=== PATIENT | male | born 1940 | race Caucasian/White ===

== ENCOUNTER → 2019-01-05 15:36 | Outpatient (CLI) | payer MEDICARE, SELFPAY ==
--- NOTE | 2019-01-05 | DI.MRI.S_ITS ---
PROCEDURE: MR STROKE Pre- and post-contrast brain MRI, non-contrast brain MR angiogram, pre- and postcontrast neck MR angiogram INDICATIONS: Amaurosis fugax TECHNIQUE: Brain: Noncontrast axial T1 spin echo, axial T2 fast spin echo, sagittal and axial FLAIR, coronal T2 fast spin echo, axial gradient echo, axial diffusion and ADC through the brain. After the administration of contrast, axial 3D VIBE of the cranial vasculature and brain. Brain MRA: Non-contrast 3-D time of flight MR angiogram, with multiple ugyufax-ahqpnjcbn-ztckbifyxr (MIP) reformats performed. Neck MRA: Axial and sagittal TruFISP through the neck. Coronal dynamic MR angiogram during administration of contrast in the arterial and venous phases, with 3-dimenstional qqsspaz-fcrpjmxor-demrqrdyty (MIP) reformats constructed from subtraction images. COMPARISON: None. FINDINGS: Image quality: Excellent. BRAIN: CSF spaces: Ventricles are normal in size and shape. Basal cisterns are patent. No extra-axial fluid collections. Brain: No intracranial bleeds or mass effects. Scattered small white matter signal changes, probably represent chronic microvascular ischemic disease, versus statistically less likely demyelination or other infectious, inflammatory, neurodegenerative etiology, technically nonspecific. Numerous presumed bilateral perivascular spaces incidentally noted. Moreno-white matter interface is normal. Diffusion weighted images show no acute ischemic insults. Brainstem appears normal. Normal intravascular flow voids are present. No abnormal intracranial enhancement. Skull and face: Calvarial marrow signal is normal. Orbits appear normal. Sinuses: Paranasal sinuses clear. There is age-indeterminate right mastoid air cell fluid. BRAIN MR ANGIOGRAM: Anterior circulation: Intracranial internal carotid arteries are normal in size and enhancement. 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 The flow within the anterior cerebral arteries is normal and symmetric. The flow within the middle cerebral arteries is normal and symmetric. The anterior communicating artery is seen. No stenoses, occlusions, or aneurysms. Posterior circulation: The visualized portions of the vertebral arteries demonstrate normal caliber, and join to form a normal appearing basilar artery. Right posterior communicating artery incidentally noted. There is a possible diminutive left posterior communicating artery. The flow within the posterior cerebral arteries is normal and symmetric. No stenoses, occlusions, or aneurysms. NECK MR ANGIOGRAM: Carotids: Great vessels demonstrate a conventional anatomy as they arise from the aortic arch. The origins of the common carotid arteries appear patent. The calibers and courses of both common carotid arteries are normal. The bifurcation regions appear normal bilaterally. The internal carotid arteries demonstrate normal course and caliber. Posterior circulation: The origins of the vertebral arteries appear patent. More superior portions of both vertebral arteries demonstrate normal course and caliber, and join to form a normal appearing basilar artery. Miscellaneous: Subclavian arteries appear patent. Pre-contrast images through the neck show no soft tissue abnormalities. IMPRESSION: BRAIN MRI: No evidence of acute ischemia. Age-indeterminate right mastoid air cell fluid. Diffuse small white matter signal changes, probably represent chronic microvascular ischemic disease, versus statistically less likely demyelination or other infectious, inflammatory, neurodegenerative etiology, technically nonspecific. BRAIN MR ANGIOGRAM: No intracranial stenosis or occlusion. NECK MR ANGIOGRAM: Negative examination. No ICA stenosis. Dictated by: Mateus Pratt M.D. on 01/05/2019 at 16:39 Approved by: Mateus Pratt M.D. on 01/05/2019 at 16:46
== END ==
PROVIDERS: PCP Physician Assistant; Visit Provider Physician Assistant
DX: G45.3 Amaurosis fugax (principal)
CPT/HCPCS: 70553; A9579

== ENCOUNTER → 2019-07-09 15:33 | Outpatient (CLI) | payer MEDICARE, SELFPAY ==
[2019-07-09 16:42] LABS: Erythrocyte Sedimentation Rate 15 MM/HR (0-15)
[2019-07-09 18:03] LABS: C-Reactive Protein Quant 0.6 mg/dL (<1.0)
== END ==
PROVIDERS: PCP Physician Assistant; Visit Provider Ophthalmology
DX: H53.10 Unspecified subjective visual disturbances (principal)
CPT/HCPCS: 36415; 85651; 86140

== ENCOUNTER → 2019-08-27 14:04 | Outpatient (CLI) | payer MEDICARE, SELFPAY ==
--- NOTE | 2019-08-27 | DI.RAD.S_ITS ---
PROCEDURE: XR CHEST 2V INDICATIONS: ACUTE BRONCHITIS TECHNIQUE: 2 views of the chest were acquired. COMPARISON: [facility], , CHEST 2 VIEW, 12/20/2013, 16:10. FINDINGS: Surgical changes and devices: None. Lungs and pleura: Lungs are clear. No pleural effusions or pneumothorax. Mediastinum: Mediastinal contours are normal. Heart size is normal. Bones and chest wall: No suspicious bony abnormalities. Soft tissues appear unremarkable. IMPRESSION: No acute disease. As Dictated by: Mateus Pratt M.D. on 08/27/2019 at 14:47 Approved by: Mateus Pratt M.D. on 08/27/2019 at 14:48
== END ==
PROVIDERS: Family Provider Physician Assistant; PCP Physician Assistant; Visit Provider Student in an Organized Health Care Education/Training Program
DX: J20.9 Acute bronchitis, unspecified (principal)
CPT/HCPCS: 71046

== ENCOUNTER → 2019-11-06 15:30 | Outpatient (CLI) | payer MEDICARE, SELFPAY ==
[2019-11-06 17:51] LABS: Add Manual Diff / Slide Review NO; Basophils Absolute Auto 0 /uL (0-100); Basophils Percent Auto 0.8 % (0-2); Eosinophils Absolute Auto 200 /uL (0-450); Hematocrit 39.1 % (41-53); Hemoglobin 13.2 g/dL (13.5-17.5); Lymphocytes Absolute Auto 1200 /uL (1100-4500); Lymphocytes Percent Auto 25.9 % (25-40); Mean Corpuscular HGB Conc 33.8 % (30-36); Mean Corpuscular Hemoglobin 31.7 PG (26-34); Mean Corpuscular Volume 93.8 fL (80-100); Monocytes Absolute Auto 300 /uL (0-900); Monocytes Percent Auto 7.1 % (3-14); Neutrophils Absolute Auto 2800 /uL (1500-7000); Neutrophils Percent Auto 62.2 % (50-75); Platelet Count 237 X10^3/uL (150-400); Red Blood Cell Count 4.17 X10^6/uL (4.5-5.9); Red Cell Distribution Width 14.4 % (11.6-14.8); White Blood Cell Count 4.6 X10^3/uL (4.5-11.0)
[2019-11-06 18:16] LABS: Alanine Aminotransferase 21 IU/L (<50); Albumin 4.5 g/dL (3.5-5.0); Albumin Globulin Ratio 1.5 (1.0-2.8); Alkaline Phosphatase 47 U/L (38-126); Aspartate Aminotransferase 28 IU/L (17-59); BUN Creatinine Ratio 14.5 (6-22); Bilirubin Total 0.4 mg/dL (0.2-1.3); Bilirubin Unconjugated 0.3 mg/dL (0.0-1.1); Blood Urea Nitrogen 16 mg/dL (9-20); Calcium 9.6 mg/dL (8.4-10.2); Carbon Dioxide 29 mmol/L (22-32); Chloride 101 mmol/L (98-107); Estimated Glomerular Filt Rate > 60.0 mL/min (>60); Glucose 98 mg/dL (80-110); HEMOLYSIS < 15 (0-50); Potassium 4.7 mmol/L (3.4-5.1); Sodium 139 mmol/L (137-145); Total Protein 7.5 g/dL (6.3-8.2)
== END ==
PROVIDERS: Family Provider Physician Assistant; PCP Physician Assistant; Visit Provider Dermatology
DX: Z79.899 Other long term (current) drug therapy (principal)
CPT/HCPCS: 36415; 80048; 80076; 85025

== ENCOUNTER → 2019-12-26 11:47 | Outpatient (CLI) | payer MEDICARE, SELFPAY ==
[2019-12-26 14:21] LABS: Add Manual Diff / Slide Review NO; Basophils Absolute Auto 0 /uL (0-100); Basophils Percent Auto 0.6 % (0-2); Eosinophils Absolute Auto 300 /uL (0-450); Eosinophils Percent Auto 5.4 % (2-4); Hematocrit 38.5 % (41-53); Lymphocytes Absolute Auto 1300 /uL (1100-4500); Lymphocytes Percent Auto 23.3 % (25-40); Mean Corpuscular HGB Conc 33.8 % (30-36); Mean Corpuscular Volume 94.6 fL (80-100); Monocytes Absolute Auto 400 /uL (0-900); Monocytes Percent Auto 7.7 % (3-14); Neutrophils Absolute Auto 3500 /uL (1500-7000); Platelet Count 241 X10^3/uL (150-400); Red Blood Cell Count 4.07 X10^6/uL (4.5-5.9); White Blood Cell Count 5.6 X10^3/uL (4.5-11.0)
[2019-12-26 15:07] LABS: Alanine Aminotransferase 51 IU/L (<50); Albumin 4.3 g/dL (3.5-5.0); Albumin Globulin Ratio 1.4 (1.0-2.8); Alkaline Phosphatase 59 U/L (38-126); Aspartate Aminotransferase 40 IU/L (17-59); BUN Creatinine Ratio 18.3 (6-22); Bilirubin Total 0.4 mg/dL (0.2-1.3); Bilirubin Unconjugated 0.3 mg/dL (0.0-1.1); Blood Urea Nitrogen 19 mg/dL (9-20); Calcium 9.4 mg/dL (8.4-10.2); Carbon Dioxide 25 mmol/L (22-32); Chloride 102 mmol/L (98-107); Estimated Glomerular Filt Rate > 60.0 mL/min (>60); Glucose 131 mg/dL (80-110); HEMOLYSIS < 15 (0-50); Potassium 4.5 mmol/L (3.4-5.1); Sodium 138 mmol/L (137-145); Total Protein 7.3 g/dL (6.3-8.2)
== END ==
PROVIDERS: Family Provider Physician Assistant; PCP Physician Assistant; Referring Provider Dermatology; Visit Provider Dermatology
DX: Z79.899 Other long term (current) drug therapy (principal)
CPT/HCPCS: 36415; 80048; 80076; 85025

== ENCOUNTER → 2020-03-20 10:13 | Outpatient (CLI) | payer MEDICARE, SELFPAY ==
[2020-03-20 11:24] LABS: Appearance Urine UA CLOUDY; Bilirubin Urine UA NEGATIVE (NEGATIVE); Color Urine UA YELLOW; Glucose Urine UA NEGATIVE (Negative); Ketones Urine UA NEGATIVE (NEGATIVE); Leukocyte Esterase Urine UA 3+ (NEGATIVE); Nitrite Urine UA POSITIVE (Negative); Occult Blood Urine UA 2+ (Negative); Protein Urine UA NEGATIVE (Negative); Urobilinogen Urine UA 0.2 E.U./dL (0.2); pH Urine UA 6.5 (4.5-8.0)
[2020-03-20 11:31] LABS: Add Manual Diff / Slide Review NO; Basophils Absolute Auto 0 /uL (0-100); Basophils Percent Auto 0.4 % (0-2); Eosinophils Absolute Auto 300 /uL (0-450); Eosinophils Percent Auto 4.2 % (2-4); Hematocrit 37.8 % (41-53); Lymphocytes Absolute Auto 1300 /uL (1100-4500); Lymphocytes Percent Auto 15.9 % (25-40); Mean Corpuscular HGB Conc 34.4 % (30-36); Mean Corpuscular Hemoglobin 33.2 PG (26-34); Mean Corpuscular Volume 96.5 fL (80-100); Monocytes Absolute Auto 800 /uL (0-900); Neutrophils Absolute Auto 5700 /uL (1500-7000); Neutrophils Percent Auto 69.5 % (50-75); Platelet Count 244 X10^3/uL (150-400); Red Blood Cell Count 3.92 X10^6/uL (4.5-5.9); Red Cell Distribution Width 14.6 % (11.6-14.8); White Blood Cell Count 8.2 X10^3/uL (4.5-11.0)
[2020-03-20 11:32] LABS: Bacteria Urine Many (>30); RBC Urine 5-10/HPF (0-5/HPF); WBC Urine 10-30/HPF (0-5/HPF)
[2020-03-20 11:38] LABS: Alanine Aminotransferase 22 IU/L (<50); Albumin 4.3 g/dL (3.5-5.0); Albumin Globulin Ratio 1.3 (1.0-2.8); Alkaline Phosphatase 50 U/L (38-126); Aspartate Aminotransferase 26 IU/L (17-59); BUN Creatinine Ratio 16.7 (6-22); Bilirubin Total 0.6 mg/dL (0.2-1.3); Bilirubin Unconjugated 0.5 mg/dL (0.0-1.1); Blood Urea Nitrogen 21 mg/dL (9-20); Calcium 9.4 mg/dL (8.4-10.2); Carbon Dioxide 27 mmol/L (22-32); Chloride 103 mmol/L (98-107); Estimated Glomerular Filt Rate 55.5 mL/min (>60); Globulin 3.3 g/dL (1.7-4.1); Glucose 124 mg/dL (80-110); HEMOLYSIS < 15 (0-50); Potassium 4.3 mmol/L (3.4-5.1); Sodium 138 mmol/L (137-145); Total Protein 7.6 g/dL (6.3-8.2)
== END ==
PROVIDERS: Family Provider Physician Assistant; PCP Physician Assistant; Referring Provider Physician Assistant; Visit Provider Dermatology
DX: Z79.899 Other long term (current) drug therapy (principal); R39.15 Urgency of urination
CPT/HCPCS: 36415; 80048; 80076; 81001; 85025; 87077; 87086; 87186

== ENCOUNTER → 2020-05-29 10:22 | Outpatient (CLI) | payer MEDICARE, SELFPAY ==
[2020-05-29 12:02] LABS: Estimated Glomerular Filt Rate > 60.0 mL/min (>60)
== END ==
PROVIDERS: Family Provider Physician Assistant; PCP Physician Assistant; Referring Provider Dermatology; Visit Provider Dermatology
DX: Z79.899 Other long term (current) drug therapy (principal)
CPT/HCPCS: 36415; 82565

== ENCOUNTER → 2020-10-20 15:17 | Outpatient (CLI) | payer OTHER, SELFPAY ==
[2020-10-20 15:55] LABS: Add Manual Diff / Slide Review NO; Basophils Absolute Auto 0 /uL (0-100); Basophils Percent Auto 0.9 % (0-2); Eosinophils Absolute Auto 200 /uL (0-450); Eosinophils Percent Auto 3.7 % (2-4); Hematocrit 39.2 % (41-53); Hemoglobin 13.2 g/dL (13.5-17.5); Lymphocytes Absolute Auto 1100 /uL (1100-4500); Lymphocytes Percent Auto 20.9 % (25-40); Mean Corpuscular HGB Conc 33.6 % (30-36); Mean Corpuscular Hemoglobin 32.8 PG (26-34); Mean Corpuscular Volume 97.7 fL (80-100); Monocytes Absolute Auto 400 /uL (0-900); Monocytes Percent Auto 8.3 % (3-14); Neutrophils Absolute Auto 3400 /uL (1500-7000); Neutrophils Percent Auto 66.2 % (50-75); Platelet Count 233 X10^3/uL (150-400); Red Blood Cell Count 4.02 X10^6/uL (4.5-5.9); Red Cell Distribution Width 14.7 % (11.6-14.8); White Blood Cell Count 5.1 X10^3/uL (4.5-11.0)
[2020-10-20 16:07] LABS: Alanine Aminotransferase 30 IU/L (<50); Albumin 4.3 g/dL (3.5-5.0); Albumin Globulin Ratio 1.3 (1.0-2.8); Alkaline Phosphatase 50 U/L (38-126); Aspartate Aminotransferase 31 IU/L (17-59); BUN Creatinine Ratio 18.3 (6-22); Bilirubin Total 0.3 mg/dL (0.2-1.3); Blood Urea Nitrogen 17 mg/dL (9-20); Calcium 9.3 mg/dL (8.4-10.2); Carbon Dioxide 30 mmol/L (22-32); Chloride 103 mmol/L (98-107); Cholesterol 154 mg/dL (140-199); Estimated Glomerular Filt Rate > 60.0 mL/min (>60); Globulin 3.3 g/dL (1.7-4.1); Glucose 108 mg/dL (80-110); HDL Cholesterol 49 mg/dL (40-60); HEMOLYSIS < 15 (0-50); Iron 53 ug/dL (49-181); LDL Cholesterol Calculated 79 mg/dL (<100); Potassium 4.4 mmol/L (3.4-5.1); Sodium 137 mmol/L (137-145); Total Protein 7.6 g/dL (6.3-8.2); Triglycerides 128 mg/dL (35-150)
[2020-10-20 16:19] LABS: Percent Iron Saturation 17 % (20-50); Total Iron Binding Capacity 318 ug/dL (261-462); Transferrin 232 mg/dL (206-381)
[2020-10-20 16:44] LABS: TSH w/ Reflex to FT4 1.72 uIU/mL (0.47-4.68)
[2020-10-20 16:47] LABS: Ferritin 85 ng/mL (18-464)
[2020-10-23 15:06] LABS: NT-proBNP (BNP-Adult 18+) 278 pg/mL (<450)
== END ==
PROVIDERS: Family Provider Physician Assistant; PCP Physician Assistant; Referring Provider Physician Assistant; Visit Provider Physician Assistant
DX: E78.5 Hyperlipidemia, unspecified (principal); D64.9 Anemia, unspecified; I10 Essential (primary) hypertension; R60.9 Edema, unspecified; R53.83 Other fatigue
CPT/HCPCS: 36415; 80053; 80061; 82728; 83540; 83550; 83880; 84443; 85025

== ENCOUNTER 2021-02-09 15:36 | Emergency (ER) | payer OTHER, SELFPAY ==
[2021-02-09 15:45] VITALS: BP 103/55; BP 158/88; PULSE 76; PULSE 79; RESP 16; RESP 22; TEMP 36.7; O2SAT 97; BMI 29.9
--- NOTE | 2021-02-09 15:48 | DI.RAD.S_ITS ---
PROCEDURE: XR CHEST 2V INDICATIONS: shortness of breath TECHNIQUE: 2 views of the chest were acquired. COMPARISON: [facility], , XR CHEST 2V, 08/27/2019, 14:07. FINDINGS: Surgical changes and devices: Surgical clips project over the upper mediastinum which are stable. Lungs and pleura: Lungs are clear. No pleural effusions or pneumothorax. Mediastinum: Mediastinal contours are normal. Heart size is normal. Bones and chest wall: No suspicious bony abnormalities. Soft tissues appear unremarkable. IMPRESSION: No acute cardiopulmonary disease process. Dictated by: Jennifer Kaminski MD, PhD on 02/09/2021 at 16:10 Approved by: Jennifer Kaminski MD, PhD on 02/09/2021 at 16:11
[2021-02-09 16:01] VITALS: BP 133/78; PULSE 66; RESP 17; O2SAT 95
[2021-02-09 16:02] LABS: Add Manual Diff / Slide Review NO; Basophils Absolute Auto 0 /uL (0-100); Basophils Percent Auto 0.7 % (0-2); Eosinophils Absolute Auto 300 /uL (0-450); Eosinophils Percent Auto 5.4 % (2-4); Hematocrit 37.7 % (41-53); Hemoglobin 12.6 g/dL (13.5-17.5); Lymphocytes Absolute Auto 1400 /uL (1100-4500); Lymphocytes Percent Auto 25.4 % (25-40); Mean Corpuscular HGB Conc 33.5 % (30-36); Mean Corpuscular Hemoglobin 33.1 PG (26-34); Mean Corpuscular Volume 98.6 fL (80-100); Monocytes Absolute Auto 400 /uL (0-900); Monocytes Percent Auto 8.2 % (3-14); Neutrophils Absolute Auto 3200 /uL (1500-7000); Neutrophils Percent Auto 60.3 % (50-75); Platelet Count 269 X10^3/uL (150-400); Red Blood Cell Count 3.82 X10^6/uL (4.5-5.9); Red Cell Distribution Width 14.5 % (11.6-14.8); White Blood Cell Count 5.3 X10^3/uL (4.5-11.0)
--- NOTE | 2021-02-09 16:11 | ED_ITS ---
HPI - General Adult General Chief complaint: Shortness of Breath/Dyspnea Stated complaint: SOB, Numbness in left hand, foggy feeling Time Seen by Provider: 02/09/21 15:41 Source: patient Mode of arrival: Ambulatory Limitations: no limitations History of Present Illness HPI narrative: Patient is a 80-year-old male here for evaluation of several different symptoms. He states that since the end of last week he has had episodes where he is becoming dizzy. He describes it has a room spinning sensation. It happens most often when he is going from a sitting position to a laying position. He denies any other associated symptoms with this. Does fatigue with time. He is also complaining of tingling along his index finger and his thumb on the right hand. He also had 1 episode where he thought he was somewhat short of breath but this improved as well. Related Data Home Medications Medication Instructions Recorded Confirmed LOPERAMIDE - 2 mg PO QDAY #0 02/07/11 (#IMODIUM) aspirin 81 mg PO QDAY #0 02/07/11 [FISH OIL ] 1 PO QDAY #0 06/27/13 [ANTACID] PO PRN PRN #0 07/02/13 Allergies Allergy/AdvReac Type Severity Reaction Status Date / Time erythromycin base Allergy Mild SKIN LESION Unverified 01/25/18 12:17 oxycodone Allergy Mild NIGHT Unverified 01/25/18 12:17 SWEATS Sulfa (Sulfonamide Allergy Mild SKIN LESION Unverified 01/25/18 12:17 Antibiotics) OYSTER EXTRACT Allergy Mild GI UPSET Uncoded 01/25/18 12:17 Review of Systems Constitutional Constitutional: Denies chills, Denies fatigue, Denies fever(s), Denies frequent falls and Denies headache(s) Eyes Eyes: Denies change in vision ENT Ears, Nose, Mouth, and Throat: Reports vertigo, Reports dizziness, Denies headache(s), Denies disequilibrium and Denies sore throat Cardiovascular Cardiovascular: Denies chest pain, Denies syncope and Reports dyspnea Respiratory Respiratory: Reports dyspnea Gastrointestinal Gastrointestinal: Denies abdominal pain, Denies nausea and Denies vomiting Genitourinary Genitourinary: Denies dysuria Genitourinary: Denies dysuria Musculoskeletal Musculoskeletal: Denies numbness and Reports tingling Integumentary/Breasts Skin/Breast: Denies lesions and Denies rash Neurologic Neurologic: Denies confusion, Reports vertigo, Reports dizziness, Denies syncope, Denies frequent falls, Denies headache(s), Denies numbness, Reports tingling and Denies disequilibrium Psychiatric Psychiatric: Denies confusion Endocrine Endocrine: Denies fatigue Hematologic/Lymphatic On Anticoagulants: No Allergic/Immunologic Allergic/Immunologic: Denies urticaria Patient History Medical History Umbilical hernia with obstruction Social History lives independently: Yes Exam Initial Vital Signs Initial Vital Signs: Vital Signs Temperature 98.0 F 02/09/21 15:45 Pulse Rate 79 02/09/21 15:45 Respiratory Rate 16 02/09/21 15:45 Blood Pressure 103/55 L 02/09/21 15:45 Pulse Oximetry 97 02/09/21 15:45 Const General: cooperative and comfortable Limitations: mental status not altered HENMT Head: normal to inspection and normocephalic Eyes General: appearance normal, both eyes and all related structures Neck Neck: normal visual inspection Resp Effort & Inspection: normal respiratory effort Auscultation: clear to auscultation bilaterally Cardio Rate: regular rate Rhythm: regular rhythm GI Inspection: non-distended Palpation: soft, No firm and No tender Back/Spine/Pelvis Back: No CVA tenderness Skin Lesions: no lesions Rashes: no rashes Neuro General: patient alert, patient awake and patient oriented x3 Cognition: normal cognition Speech: speech normal Gait: normal gait Motor: muscle tone normal throughout Extrem General: capillary refill normal Psych Appearance: grossly normal and well kempt Course Orders Ordered: ED Orders 02/09/21 15:48 XR chest 2V Stat EKG-12 Lead Stat Measure peak expiratory flow ONCE RT Consult Eval and Treat Now 02/09/21 15:50 Complete Blood Count AUTO DIFF Stat Comprehensive Metabolic Panel Stat Lactate (Lactic Acid) Stat NT-proBNP (BNP-Adult 18+) Stat Troponin & CK Cardiac Panel Stat Vital Signs Vital signs: Vital Signs - 8 hr 02/09/21 15:45 02/09/21 16:01 02/09/21 16:30 Temperature 98.0 F Pulse Rate 76 66 65 Respiratory Rate 22 17 18 Blood Pressure 158/88 H 133/78 Pulse Oximetry 97 95 94 02/09/21 16:31 Temperature Pulse Rate 65 Respiratory Rate 13 Blood Pressure 116/82 Pulse Oximetry 96 Medical Decision Making Lab Data Lab results reviewed: Yes I reviewed the patient's lab results. Result diagrams: 02/09/21 15:50 02/09/21 15:50 Labs: Lab Results 02/09/21 02/09/21 02/09/21 Range/Units 15:50 15:50 15:50 WBC 5.3 (4.5-11.0) X10^3/uL RBC 3.82 L (4.5-5.9) X10^6/uL Hgb 12.6 L (13.5-17.5) g/dL Hct 37.7 L (41-53) % MCV 98.6 (80-100) fL MCH 33.1 (26-34) PG MCHC 33.5 (30-36) % RDW 14.5 (11.6-14.8) % Plt Count 269 (150-400) X10^3/uL Neut % (Auto) 60.3 (50-75) % Lymph % (Auto) 25.4 (25-40) % [place] % (Auto) 8.2 (3-14) % Eos % (Auto) 5.4 H (2-4) % Baso % (Auto) 0.7 (0-2) % Neut # (Auto) 3200 (1810-6009) /uL Lymph # (Auto) 1400 (1998-4500) /uL [place] # (Auto) 400 (0-900) /uL Eos # (Auto) 300 (0-450) /uL Baso # (Auto) 0 (0-100) /uL Sodium 139 (137-145) mmol/L Potassium 4.2 (3.4-5.1) mmol/L Chloride 105 (98-107) mmol/L Carbon Dioxide 25 (22-32) mmol/L BUN 23 H (9-20) mg/dL Creatinine 0.94 (0.66-1.25) mg/dL Estimated GFR > 60.0 (>60) mL/min BUN/Creatinine Ratio 24.5 H (6-22) Glucose 111 H (80-110) mg/dL Lactate 1.2 (0.7-2.1) mmol/L Calcium 9.4 (8.4-10.2) mg/dL Total Bilirubin 0.1 L (0.2-1.3) mg/dL AST 29 (17-59) IU/L ALT 22 (<50) IU/L Alkaline Phosphatase 53 (38-126) U/L Total Creatine Kinase (55-170) U/L CK-MB (CK-2) (<2.37) ng/mL CK-MB (CK-2) Rel Index (1.5-5.0) % Troponin I (0.01-0.034) ng/mL NT-Pro-B Natriuret Pep (<450) pg/mL Total Protein 7.3 (6.3-8.2) g/dL Albumin 4.2 (3.5-5.0) g/dL Globulin 3.1 (1.7-4.1) g/dL Albumin/Globulin Ratio 1.4 (1.0-2.8) / Range/Units 15:50 WBC (4.5-11.0) X10^3/uL RBC (4.5-5.9) X10^6/uL Hgb (13.5-17.5) g/dL Hct (41-53) % MCV (80-100) fL MCH (26-34) PG MCHC (30-36) % RDW (11.6-14.8) % Plt Count (150-400) X10^3/uL Neut % (Auto) (50-75) % Lymph % (Auto) (25-40) % [place] % (Auto) (3-14) % Eos % (Auto) (2-4) % Baso % (Auto) (0-2) % Neut # (Auto) (5429-7655) /uL Lymph # (Auto) (0939-0126) /uL [place] # (Auto) (0-900) /uL Eos # (Auto) (0-450) /uL Baso # (Auto) (0-100) /uL Sodium (137-145) mmol/L Potassium (3.4-5.1) mmol/L Chloride (98-107) mmol/L Carbon Dioxide (22-32) mmol/L BUN (9-20) mg/dL Creatinine (0.66-1.25) mg/dL Estimated GFR (>60) mL/min BUN/Creatinine Ratio (6-22) Glucose (80-110) mg/dL Lactate (0.7-2.1) mmol/L Calcium (8.4-10.2) mg/dL Total Bilirubin (0.2-1.3) mg/dL AST (17-59) IU/L ALT (<50) IU/L Alkaline Phosphatase (38-126) U/L Total Creatine Kinase 154 (55-170) U/L CK-MB (CK-2) 2.91 H (<2.37) ng/mL CK-MB (CK-2) Rel Index 1.9 (1.5-5.0) % Troponin I < 0.012 (0.01-0.034) ng/mL NT-Pro-B Natriuret Pep 223 (<450) pg/mL Total Protein (6.3-8.2) g/dL Albumin (3.5-5.0) g/dL Globulin (1.7-4.1) g/dL Albumin/Globulin Ratio (1.0-2.8) Imaging Data Chest x-ray: Radiologist's Impression: [address] [id number] ReportSigned Patient: Hilario Hines R#: [id number]: 2Acct:[id number]/Sex: 80 / MDate of Service: 02/09/21Loc: EDAccession Number: [id number] Procedure: XR chest 2V Ordering Provider: Colin Higginbotham D.O. PROCEDURE: XR CHEST 2V INDICATIONS: shortness of breath TECHNIQUE: 2 views of the chest were acquired. COMPARISON: [facility], , XR CHEST 2V, 08/27/2019, 14:07. FINDINGS: Surgical changes and devices: Surgical clips project over the upper mediastinum which are stable. Lungs and pleura: Lungs are clear. No pleural effusions or pneumothorax. Mediastinum: Mediastinal contours are normal. Heart size is normal. Bones and chest wall: No suspicious bony abnormalities. Soft tissues appear unremarkable. IMPRESSION: No acute cardiopulmonary disease process. Dictated by: Jennifer Kaminski MD, PhD on 02/09/2021 at 16:10 Approved by: Jennifer Kaminski MD, PhD on 02/09/2021 at 16:11 ECG Data Attestation: I personally reviewed and interpreted this ECG as follows: Prior ECG tracings: not available for review Interpretation: Sinus rhythm Ventricular rate is 72 Left axis deviation None bundle-branch block +no ST T wave changes MDM Narrative Medical decision making narrative: Low suspicion for ACS. I do think that his symptoms today are less likely TIA/CVA and more likely peripheral vertigo. I feel that we can hold on further workup for now low suspicion for central DIGESTER lesion. Low suspicion for ACS. Patient was given return precautions and follow-up instructions. He expressed understanding and agreement. Discharge Plan Departure Patient Disposition: Home Clinical Impression: Vertigo, Tingling Instructions: Vertigo Activity Restrictions/Additional Instructions: Continue all of your medications as directed. Recommend you contact your prima provider for follow-up. Return to the emergency department for any new or worsening symptoms Prescriptions: No Action aspirin 81 MG tablet,chewable 81 mg PO QDAY Qty: 0 RF: 0 LOPERAMIDE - (#IMODIUM) 2 mg PO QDAY Qty: 0 RF: 0 [FISH OIL ] 1 PO QDAY Qty: 0 RF: 0 [ANTACID] PO PRN PRNQty: 0 RF: 0 Referrals: Monika Márquez PA-C [Primary Care Provider] -
[2021-02-09 16:26] LABS: Alanine Aminotransferase 22 IU/L (<50); Albumin 4.2 g/dL (3.5-5.0); Albumin Globulin Ratio 1.4 (1.0-2.8); Alkaline Phosphatase 53 U/L (38-126); Aspartate Aminotransferase 29 IU/L (17-59); BUN Creatinine Ratio 24.5 (6-22); Bilirubin Total 0.1 mg/dL (0.2-1.3); Blood Urea Nitrogen 23 mg/dL (9-20); Calcium 9.4 mg/dL (8.4-10.2); Carbon Dioxide 25 mmol/L (22-32); Chloride 105 mmol/L (98-107); Creatine Kinase 154 U/L (55-170); Estimated Glomerular Filt Rate > 60.0 mL/min (>60); Globulin 3.1 g/dL (1.7-4.1); Glucose 111 mg/dL (80-110); HEMOLYSIS 20 (0-50); Lactate (Lactic Acid) 1.2 mmol/L (0.7-2.1); Potassium 4.2 mmol/L (3.4-5.1); Sodium 139 mmol/L (137-145); Total Protein 7.3 g/dL (6.3-8.2)
[2021-02-09 16:30] VITALS: PULSE 65; RESP 18; O2SAT 94
[2021-02-09 16:31] VITALS: BP 116/82; PULSE 65; RESP 13; O2SAT 96
[2021-02-09 16:37] LABS: NT-proBNP (BNP-Adult 18+) 223 pg/mL (<450); Troponin I < 0.012 ng/mL (0.01-0.034)
[2021-02-09 16:41] LABS: CKMB % Relative Index 1.9 % (1.5-5.0); Creatine Kinase MB 2.91 ng/mL (<2.37)
[2021-02-09 17:00] VITALS: BP 136/63; PULSE 64; RESP 17; O2SAT 95
== END 2021-02-09 17:32 | disposition home or self-care (01) ==
PROVIDERS: Emergency Provider Emergency Medicine; Family Provider Physician Assistant; PCP Physician Assistant
DX: R42 Dizziness and giddiness (principal); R20.2 Paresthesia of skin; R06.02 Shortness of breath
CPT/HCPCS: 36415; 71046; 80053; 82550; 82553; 83605; 83880; 84484; 85025; 93005; 99283; 99284

== ENCOUNTER → 2021-04-01 08:35 | Outpatient (CLI) | payer OTHER, SELFPAY ==
[2021-04-01 10:03] LABS: Alanine Aminotransferase 27 IU/L (<50); Albumin 4.1 g/dL (3.5-5.0); Albumin Globulin Ratio 1.4 (1.0-2.8); Alkaline Phosphatase 48 U/L (38-126); Aspartate Aminotransferase 30 IU/L (17-59); Bilirubin Total 0.4 mg/dL (0.2-1.3); Bilirubin Unconjugated 0.3 mg/dL (0.0-1.1); Estimated Glomerular Filt Rate > 60.0 mL/min (>60); Globulin 2.9 g/dL (1.7-4.1); HEMOLYSIS < 15 (0-50)
[2021-04-01 10:45] LABS: Add Manual Diff / Slide Review NO; Basophils Absolute Auto 0 /uL (0-100); Basophils Percent Auto 0.7 % (0-2); Eosinophils Absolute Auto 400 /uL (0-450); Eosinophils Percent Auto 7.1 % (2-4); Hematocrit 40.3 % (41-53); Hemoglobin 13.4 g/dL (13.5-17.5); Lymphocytes Absolute Auto 1300 /uL (1100-4500); Lymphocytes Percent Auto 26.4 % (25-40); Mean Corpuscular HGB Conc 33.2 % (30-36); Mean Corpuscular Hemoglobin 32.4 PG (26-34); Mean Corpuscular Volume 97.7 fL (80-100); Monocytes Absolute Auto 400 /uL (0-900); Monocytes Percent Auto 8.2 % (3-14); Neutrophils Absolute Auto 2900 /uL (1500-7000); Neutrophils Percent Auto 57.6 % (50-75); Platelet Count 249 X10^3/uL (150-400); Red Blood Cell Count 4.13 X10^6/uL (4.5-5.9); Red Cell Distribution Width 14.3 % (11.6-14.8)
== END ==
PROVIDERS: Family Provider Physician Assistant; PCP Physician Assistant; Referring Provider Dermatology; Visit Provider Dermatology
DX: Z79.899 Other long term (current) drug therapy (principal)
CPT/HCPCS: 36415; 80076; 82565; 85025

== ENCOUNTER → 2021-05-07 10:00 | Outpatient (CLI) | payer OTHER, SELFPAY ==
--- NOTE | 2021-05-07 | DI.CT.S_ITS ---
PROCEDURE: CT HEAD/BRAIN WO CON INDICATIONS: Dizziness and giddiness TECHNIQUE: Noncontrast 4.5 mm thick angled axial sections acquired from the foramen magnum to the vertex, with coronal and sagittal reformats. For radiation dose reduction, the following was used: automated exposure control, adjustment of mA and/or kV according to patient size. COMPARISON: None. FINDINGS: Image quality: Excellent. CSF spaces: Basal cisterns are patent. No extra-axial fluid collections. The ventricles are symmetric in size and shape. Brain: No intracranial bleeds or masses. There is cerebral volume loss for age, with resultant ventricular and sulcal prominence. There are periventricular and deep white matter chronic small vessel ischemic changes. There is intracranial internal carotid artery atherosclerosis. Skull and face: Calvarium and visualized facial bones appear intact, without suspicious lesions. Sinuses: Visualized sinuses and mastoids are clear. IMPRESSION: No imaging explanation is found for the patient's presenting symptoms. Note is made of age-appropriate brain parenchymal volume loss and chronic small vessel ischemic changes. Dictated by: Woody Cabrera M.D. on 05/07/2021 at 9:14 Approved by: Woody Cabrera M.D. on 05/07/2021 at 9:16
== END ==
PROVIDERS: Family Provider Physician Assistant; PCP Physician Assistant; Referring Provider Physician Assistant; Visit Provider Physician Assistant
DX: R42 Dizziness and giddiness (principal)
CPT/HCPCS: 70450

== ENCOUNTER 2021-07-06 11:36 | Observation (INO) | payer OTHER, SELFPAY ==
[2021-07-06] VITALS (19 sets, daily range): BP systolic 115–148; BP diastolic 55–88; PULSE 54–69; RESP 14–25; TEMP 35.7–36.7; O2SAT 93–99; BMI 30.5; BMI 31.1
--- NOTE | 2021-07-06 11:44 | DI.RAD.S_ITS ---
PROCEDURE: XR CHEST 1V INDICATIONS: chest pain TECHNIQUE: One view of the chest was acquired. COMPARISON: [facility], CR, XR CHEST 2V, 02/09/2021, 15:49. FINDINGS: Surgical changes and devices: Surgical clips project over upper mediastinum. Lungs and pleura: Lungs are clear. No pleural effusions or pneumothorax. Mediastinum: Mediastinal contours appear normal. Heart size is normal. Bones and chest wall: No suspicious bony lesions. Overlying soft tissues appear unremarkable. IMPRESSION: No evidence acute pulmonary process. Dictated by: Corey Torres M.D. on 07/06/2021 at 11:57 Approved by: Corey Torres M.D. on 07/06/2021 at 11:58
[2021-07-06] MEDS: ASPIRIN 81 MG CHEW TAB 324 MG PO (11:58)
[2021-07-06 12:04] LABS: Add Manual Diff / Slide Review NO; Basophils Absolute Auto 0 /uL (0-100); Basophils Percent Auto 0.8 % (0-2); Eosinophils Absolute Auto 400 /uL (0-450); Eosinophils Percent Auto 7.3 % (2-4); Hematocrit 39.6 % (41-53); Hemoglobin 12.9 g/dL (13.5-17.5); Lymphocytes Absolute Auto 1100 /uL (1100-4500); Lymphocytes Percent Auto 22.3 % (25-40); Mean Corpuscular HGB Conc 32.7 % (30-36); Mean Corpuscular Hemoglobin 32.3 PG (26-34); Mean Corpuscular Volume 98.8 fL (80-100); Monocytes Absolute Auto 500 /uL (0-900); Monocytes Percent Auto 9.5 % (3-14); Neutrophils Absolute Auto 3000 /uL (1500-7000); Neutrophils Percent Auto 60.1 % (50-75); Platelet Count 244 X10^3/uL (150-400); Red Cell Distribution Width 14.8 % (11.6-14.8)
--- NOTE | 2021-07-06 12:23 | ED_ITS ---
HPI - Chest Pain <Zelalem Montelongo PA-C - Last Filed: 07/06/21 15:00> General Chief Complaint: Chest Pain Stated Complaint: pcp ref. SOB, chest pain, lightheaded, Time Seen by Provider: 07/06/21 11:55 Source: patient Mode of arrival: Ambulatory Limitations: no limitations History of Present Illness HPI narrative: 80-year-old male with a history of flaccid bladder, hypertension, hyperlipidemia presents to the ED with 2 days of shortness of breath. Patient reports that he has been experiencing shortness of breath, lightheadedness, chest tightness when he tries to take a deep breath for the last week, however symptoms worsened yesterday when he was on a walk. 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 Patient denies any other cardiac history. Patient denies history of blood clots. Patient denies fever, chills, cough, nausea, vomiting, abdominal pain, dysuria, syncope. Patient has known bladder issues for which he catheterizes himself twice daily. Patient does not recall when he last had an EKG and if it had a left bundle-branch block. Related Data Home Medications Medication Instructions Recorded Confirmed LOPERAMIDE - 2 mg PO PRN PRN #0 02/07/11 07/06/21 (#IMODIUM) aspirin 81 mg chewable tablet 81 mg PO QDAY #0 02/07/11 07/06/21 [FISH OIL ] 14,000 mg PO QDAY #0 06/27/13 07/06/21 [ANTACID] PO PRN PRN #0 07/02/13 atorvastatin 10 mg tablet 10 mg PO DAILY 02/10/21 07/06/21 enalapril maleate 10 mg tablet 10 mg PO BEDTIME 02/10/21 07/06/21 iron 150 mg-vit C 60 mg-folate 1 1 tab PO DAILY 02/10/21 02/10/21 [id number] tablet methotrexate sodium 2.5 mg tablet 2.5 mg PO QWEEK 02/10/21 07/06/21 finasteride 5 mg tablet 5 mg PO BEDTIME 07/06/21 07/06/21 Previous Rx's Medication Instructions Recorded alfuzosin 10 mg tablet,extended 10 mg PO DAILY #90 tab 02/10/21 release 24 hr Allergies Allergy/AdvReac Type Severity Reaction Status Date / Time erythromycin base Allergy Mild SKIN LESION Verified 07/06/21 11:57 oxycodone Allergy Mild NIGHT Verified 07/06/21 11:57 SWEATS Sulfa (Sulfonamide Allergy Mild SKIN LESION Verified 07/06/21 11:57 Antibiotics) OYSTER EXTRACT Allergy Mild GI UPSET Uncoded 07/06/21 11:57 Review of Systems <Zelalem Montelongo PA-C - Last Filed: 07/06/21 15:00> Constitutional Constitutional: Denies chills, Denies fatigue, Denies fever(s), Denies frequent falls, Denies lethargy and Denies weakness Eyes Eyes: Denies change in vision, Denies eye discharge, Denies irritation and Denies loss of vision ENT Ears, Nose, Mouth, and Throat: Denies change in voice, Denies dizziness, Denies neck pain, Denies sore throat and Denies throat swelling Cardiovascular Cardiovascular: Denies chest pain, Denies irregular heart rhythm, Reports lightheadedness, Denies palpitations, Reports dyspnea, Reports dyspnea on exertion and Denies orthopnea Comments: Chest tightness Respiratory Respiratory: Denies cough, Reports dyspnea, Reports dyspnea on exertion and Denies wheezing Gastrointestinal Gastrointestinal: Denies abdominal pain, Denies change in bowel habits, Denies diarrhea, Denies nausea and Denies vomiting Musculoskeletal Musculoskeletal: Denies neck pain and Denies numbness Integumentary/Breasts Skin/Breast: Denies pruritus, Denies erythema, Denies rash and Denies wounds Neurologic Neurologic: Denies behavioral changes, Denies confusion, Denies dizziness, Denies frequent falls, Denies loss of vision, Denies numbness and Denies weakness Psychiatric Psychiatric: Denies anxiety, Denies behavioral changes, Denies confusion, Denies depression, Denies homicidal ideation and Denies suicidal ideation Endocrine Endocrine: Denies fatigue, Denies flushing and Denies palpitations Hematologic/Lymphatic Hematologic/Lymphatic: Denies easy bruising Allergic/Immunologic Allergic/Immunologic: Denies urticaria, Denies throat swelling and Denies wheezing Patient History <Zelalem Montelongo PA-C - Last Filed: 07/06/21 15:00> Medical History Flaccid bladder History of UTI Rotator cuff arthropathy Umbilical hernia with obstruction UTI (urinary tract infection) Surgical History History of knee replacement Hx of vasectomy Family History Father Cancer Social History marital status: number of children: 2 household members: spouse lives independently: Yes Smoking Status: Never smoker alcohol intake: former caffeine: Yes Smoking Status: Never smoker alcohol intake frequency: 0-2 drinks per day Substance Use Type: does not use Exam <Zelalem Montelongo PA-C - Last Filed: 07/06/21 15:00> Initial Vital Signs Initial Vital Signs: Vital Signs Temperature 97.6 F 07/06/21 11:39 Pulse Rate 69 07/06/21 11:39 Respiratory Rate 14 07/06/21 11:39 Blood Pressure 148/88 H 07/06/21 11:39 Pulse Oximetry 99 07/06/21 11:39 Const General: cooperative HENMT Head: normocephalic and atraumatic Ears: external ears normal and TM's normal bilaterally Nose: external nose normal and No nasal discharge Face and sinus: sinuses nontender, face symmetric, no sinus tenderness and No dry mucous membranes Mouth: oral mucosae normal and moist mucous membranes Teeth and gingiva: dentition normal Throat: tonsils normal and uvula midline Eyes General: appearance normal, both eyes and all related structures Eyelids: eyelids normal Conjunctivae: conjunctivae normal Sclera: sclerae normal Pupils: PERRL EOM: EOM intact bilaterally Neck Neck: normal visual inspection, trachea midline, No lymphadenopathy, No midline deformity and No JVD Lymphatic: No lymphedema Chest Chest: normal inspection of the chest Resp Effort & Inspection: normal respiratory effort, able to speak in complete se ntences, no respiratory distress and no use of accessory muscles Auscultation: clear to auscultation bilaterally, no rales, no rhonchi and no wheezes Cardio Rate: regular rate Rhythm: regular rhythm Heart Sounds: no click, no gallops, no murmurs and no rubs Pulses: normal peripheral pulses GI Inspection: non-distended Palpation: soft, no hepatosplenomegaly, No guarding, No pulsatile mass and No tender Auscultation: normal bowel sounds Back/Spine/Pelvis Back: No CVA tenderness Cervical Spine: cervical ROM normal and No pain with cervical ROM Thoracic/Lumbar Spine: thoracic and lumbar spine normal to inspection Skin General: no rashes or lesions noted, No jaundice and No petechiae Neuro General: patient alert, patient oriented x3, gait normal and no focal motor deficits Speech: speech normal Extrem General: full ROM, no clubbing, cyanosis or edema, no pedal edema, no calf tenderness and calf tenderness Other: No lower extremity edema, no leg swelling, erythema Psych Appearance: well kempt Mental Status: mental status grossly normal Attitude: cooperative Thought Content: normal and suicidality Judgment: judgment good <Colin Higginbotham DO - Last Filed: 07/06/21 17:00> Initial Vital Signs Initial Vital Signs: Vital Signs Temperature 97.6 F 07/06/21 11:39 Pulse Rate 69 07/06/21 11:39 Respiratory Rate 14 07/06/21 11:39 Blood Pressure 148/88 H 07/06/21 11:39 Pulse Oximetry 99 07/06/21 11:39 Scores <Zelalem Montelongo PA-C - Last Filed: 07/06/21 15:00> HEART Score Heart Score history: Moderately Suspicious Heart Score EKG: Non-Specific repolarization disturbance Heart Score Age: > or = 65 years old Heart Score risk factors: 1-2 risk factors Heart Score troponin: < or = to normal limit Heart Score Total: 5 <Colin Higginbotham DO - Last Filed: 07/06/21 17:00> HEART Score Heart Score Total: 5 Course <Zelalem Montelongo PA-C - Last Filed: 07/06/21 15:00> Course Course Narrative: D-dimer elevated to 522 NG/dL, which is above the 390 age adjusted D-dimer cut off. Will order CT PE. CT PE neg for PE or otheracute pulmonary process. HEART score 5 Will admit for obs, cardiac stress test. Orders Ordered: ED Orders 07/06/21 11:44 XR chest 1V Stat EKG-12 Lead Stat 07/06/21 11:55 BNP [NT-proBNP (BNP-Adult 18+)] Stat Complete Blood Count AUTO DIFF Stat Comprehensive Metabolic Panel Stat D Dimer Stat Lipase Stat Magnesium Stat Troponin & CK Cardiac Panel Stat 07/06/21 12:24 COVID19 -Nasal swab/Pre-Proc Stat 07/06/21 13:10 CT angio chest PE protocol Stat 07/06/21 15:00 COVID19 - ADMIT (ENVIRONMENTAL CONTROL ADMINISTRATOR swab/PCR) Stat Acetaminophen (Acetaminophen 325 Mg Tablet) 650 mg PO Q6HR PRN PRN Reason: Fever/Mild Pain (1-3) Enoxaparin Sodium (Enoxaparin 40 Mg/0.4 Ml Syringe) 40 mg SUBCUT DAILY [place] Nitroglycerin (Nitroglycerin 0.4 Mg Sl Tab) 0.4 mg SL [id number] PRN PRN Reason: Chest Pain Ondansetron HCl (Ondansetron 4 Mg Odt) 4 mg PO Q8HR PRN PRN Reason: Nausea And Vomiting Discontinued Medications Aspirin (Aspirin 81 Mg Chew Tab) 324 mg PO NOW ONE Stop: 07/06/21 11:45 Last Admin: 07/06/21 11:58 Dose: 324 mg Documented by: RAUL Vital Signs Vital signs: Vital Signs - 8 hr 07/06/21 11:39 07/06/21 11:50 07/06/21 11:52 Temperature 97.6 F Pulse Rate 69 67 65 Respiratory Rate 14 24 20 Blood Pressure 148/88 H 141/62 H Pulse Oximetry 99 97 97 07/06/21 12:00 07/06/21 12:01 07/06/21 12:30 Temperature Pulse Rate 65 63 59 L Respiratory Rate 25 H 21 17 Blood Pressure 118/76 122/55 L Pulse Oximetry 96 96 95 07/06/21 13:00 07/06/21 13:30 07/06/21 13:44 Temperature Pulse Rate 57 L 57 L 55 L Respiratory Rate 16 19 24 Blood Pressure 115/57 L 120/64 Pulse Oximetry 95 96 96 07/06/21 14:00 07/06/21 14:30 Temperature Pulse Rate 55 L 55 L Respiratory Rate 18 19 Blood Pressure 124/67 128/63 Pulse Oximetry 95 95 <Colin Higginbotham DO - Last Filed: 07/06/21 17:00> Orders Ordered: ED Orders 07/06/21 11:44 XR chest 1V Stat EKG-12 Lead Stat 07/06/21 11:55 BNP [NT-proBNP (BNP-Adult 18+)] Stat Complete Blood Count AUTO DIFF Stat Comprehensive Metabolic Panel Stat D Dimer Stat Lipase Stat Magnesium Stat Troponin & CK Cardiac Panel Stat 07/06/21 12:24 COVID19 -Nasal swab/Pre-Proc Stat 07/06/21 13:10 CT angio chest PE protocol Stat 07/06/21 15:00 COVID19 - ADMIT (ENVIRONMENTAL CONTROL ADMINISTRATOR swab/PCR) Stat Acetaminophen (Acetaminophen 325 Mg Tablet) 650 mg PO Q6HR PRN PRN Reason: Fever/Mild Pain (1-3) Enoxaparin Sodium (Enoxaparin 40 Mg/0.4 Ml Syringe) 40 mg SUBCUT DAILY [place] Nitroglycerin (Nitroglycerin 0.4 Mg Sl Tab) 0.4 mg SL [id number] PRN PRN Reason: Chest Pain Ondansetron HCl (Ondansetron 4 Mg Odt) 4 mg PO Q8HR PRN PRN Reason: Nausea And Vomiting Discontinued Medications Aspirin (Aspirin 81 Mg Chew Tab) 324 mg PO NOW ONE Stop: 07/06/21 11:45 Last Admin: 07/06/21 11:58 Dose: 324 mg Documented by: RAUL Vital Signs Vital signs: Vital Signs - 8 hr 07/06/21 11:39 07/06/21 11:50 07/06/21 11:52 Temperature 97.6 F Pulse Rate 69 67 65 Respiratory Rate 14 24 20 Blood Pressure 148/88 H 141/62 H Pulse Oximetry 99 97 97 07/06/21 12:00 07/06/21 12:01 07/06/21 12:30 Temperature Pulse Rate 65 63 59 L Respiratory Rate 25 H 21 17 Blood Pressure 118/76 122/55 L Pulse Oximetry 96 96 95 07/06/21 13:00 07/06/21 13:30 07/06/21 13:44 Temperature Pulse Rate 57 L 57 L 55 L Respiratory Rate 16 19 24 Blood Pressure 115/57 L 120/64 Pulse Oximetry 95 96 96 07/06/21 14:00 07/06/21 14:30 Temperature Pulse Rate 55 L 55 L Respiratory Rate 18 19 Blood Pressure 124/67 128/63 Pulse Oximetry 95 95 MDM - Chest Pain <Zelalem Montelongo PA-C - Last Filed: 07/06/21 15:00> Lab Data Lab results narrative: D-dimer elevated to 522 NG/dL, which is above the 390 age adjusted D-dimer cut off. Other labs within normal limits. Result diagrams: 07/06/21 11:55 07/06/21 11:55 Labs: Lab Results 07/06/21 07/06/21 07/06/21 Range/Units 11:55 11:55 11:55 WBC 5.0 (4.5-11.0) X10^3/uL RBC 4.00 L (4.5-5.9) X10^6/uL Hgb 12.9 L (13.5-17.5) g/dL Hct 39.6 L (41-53) % MCV 98.8 (80-100) fL MCH 32.3 (26-34) PG MCHC 32.7 (30-36) % RDW 14.8 (11.6-14.8) % Plt Count 244 (150-400) X10^3/uL Neut % (Auto) 60.1 (50-75) % Lymph % (Auto) 22.3 L (25-40) % [place] % (Auto) 9.5 (3-14) % Eos % (Auto) 7.3 H (2-4) % Baso % (Auto) 0.8 (0-2) % Neut # (Auto) 3000 (1541-6747) /uL Lymph # (Auto) 1100 (4561-4953) /uL [place] # (Auto) 500 (0-900) /uL Eos # (Auto) 400 (0-450) /uL Baso # (Auto) 0 (0-100) /uL D-Dimer 522 H (<230) ng/mL Sodium 139 (137-145) mmol/L Potassium 4.3 (3.4-5.1) mmol/L Chloride 106 (98-107) mmol/L Carbon Dioxide 28 (22-32) mmol/L BUN 15 (9-20) mg/dL Creatinine 0.87 (0.66-1.25) mg/dL Estimated GFR > 60.0 (>60) mL/min BUN/Creatinine Ratio 17.2 (6-22) Glucose 129 H (80-110) mg/dL Calcium 9.3 (8.4-10.2) mg/dL Magnesium 2.0 (1.6-2.3) mg/dL Total Bilirubin 0.3 (0.2-1.3) mg/dL AST 32 (17-59) IU/L ALT 31 (<50) IU/L Alkaline Phosphatase 47 (38-126) U/L Total Creatine Kinase 151 (55-170) U/L CK-MB (CK-2) 2.05 (<2.37) ng/mL CK-MB (CK-2) Rel Index 1.4 L (1.5-5.0) % Troponin I < 0.012 (0.01-0.034) ng/mL NT-Pro-B Natriuret Pep 245 (<450) pg/mL Total Protein 7.3 (6.3-8.2) g/dL Albumin 4.3 (3.5-5.0) g/dL Globulin 3.0 (1.7-4.1) g/dL Albumin/Globulin Ratio 1.4 (1.0-2.8) Lipase 76 (23-300) U/L SARS-CoV-2 (PCR) (Negative) 07/06/21 Range/Units 12:24 WBC (4.5-11.0) X10^3/uL RBC (4.5-5.9) X10^6/uL Hgb (13.5-17.5) g/dL Hct (41-53) % MCV (80-100) fL MCH (26-34) PG MCHC (30-36) % RDW (11.6-14.8) % Plt Count (150-400) X10^3/uL Neut % (Auto) (50-75) % Lymph % (Auto) (25-40) % [place] % (Auto) (3-14) % Eos % (Auto) (2-4) % Baso % (Auto) (0-2) % Neut # (Auto) (1049-3053) /uL Lymph # (Auto) (2550-9793) /uL [place] # (Auto) (0-900) /uL Eos # (Auto) (0-450) /uL Baso # (Auto) (0-100) /uL D-Dimer (<230) ng/mL Sodium (137-145) mmol/L Potassium (3.4-5.1) mmol/L Chloride (98-107) mmol/L Carbon Dioxide (22-32) mmol/L BUN (9-20) mg/dL Creatinine (0.66-1.25) mg/dL Estimated GFR (>60) mL/min BUN/Creatinine Ratio (6-22) Glucose (80-110) mg/dL Calcium (8.4-10.2) mg/dL Magnesium (1.6-2.3) mg/dL Total Bilirubin (0.2-1.3) mg/dL AST (17-59) IU/L ALT (<50) IU/L Alkaline Phosphatase (38-126) U/L Total Creatine Kinase (55-170) U/L CK-MB (CK-2) (<2.37) ng/mL CK-MB (CK-2) Rel Index (1.5-5.0) % Troponin I (0.01-0.034) ng/mL NT-Pro-B Natriuret Pep (<450) pg/mL Total Protein (6.3-8.2) g/dL Albumin (3.5-5.0) g/dL Globulin (1.7-4.1) g/dL Albumin/Globulin Ratio (1.0-2.8) Lipase (23-300) U/L SARS-CoV-2 (PCR) Negative (Negative) Imaging Data Chest x-ray: Radiologist's Impression: PROCEDURE:? XR CHEST 1V ? INDICATIONS:? chest pain ? TECHNIQUE:? One view of the chest was acquired.? ? COMPARISON:? [facility], , XR CHEST 2V, 02/09/2021, 15:49. ? FINDINGS:? ? Surgical changes and devices:? Surgical clips project over upper mediastinum. ? Lungs and pleura:? Lungs are clear.? No pleural effusions or pneumothorax.? ? Mediastinum:? Mediastinal contours appear normal.? Heart size is normal.? ? Bones and chest wall:? No suspicious bony lesions.? Overlying soft tissues appear unremarkable.? ? IMPRESSION:? No evidence acute pulmonary process. ? ? ? Dictated by: Corey Torres M.D. on 07/06/2021 at 11:57 ? ? Approved by: Corey Torres M.D. on 07/06/2021 at 11:58 ? CT scan - chest: Radiologist's Impression: PROCEDURE:? CT ANGIO CHEST PE PROTOCOL ? INDICATIONS:? SOB, lightheadedness, chest tightness ? TECHNIQUE:? After the administration of intravenous contrast, 2 mm thick sections acquired from the pulmonary apices to the posterior costophrenic angles.? 3-dimensional maximum intensity projection (MIP) coronal and sagittal reformats were then acquired through the thorax.? For radiation dose reduction, the following was used:? automated exposure control, adjustment of mA and/or kV according to patient size.? ? COMPARISON:? [facility], CR, XR CHEST 1V, 07/06/2021, 11:47. ? FINDINGS:? Image quality:? Excellent.? ? Pulmonary arteries:? Pulmonary arteries are normal in size, and demonstrate no intraluminal filling defects to suggest central pulmonary embolism.? ? Lungs and pleura:? Lungs are clear.? No pleural effusions or pneumothorax.? Central and peripheral airways are patent.? ? Mediastinum:? Heart size is normal, without pericardial effusion.? Moderate coronary artery calcifications are present.? Aortic valve calcifications are also noted.? No mediastinal or hilar adenopathy.? Surgical clips are seen in the upper mediastinum.? Thoracic aorta is normal in caliber and enhancement.? Esophagus is normal in caliber, without hiatal hernia.? ? Bones and chest wall:? No suspicious bony lesions.? Ribs and thoracic spine appear intact throughout.? Thyroid appears normal.? No axillary or supraclavicular adenopathy.? ? Abdomen:? A few calcified gallstones are seen in the gallbladder.? Visualized upper abdominal solid organs otherwise appear normal in the early arterial phase of enhancement.? ? IMPRESSION:? 1. No acute pulmonary embolus.? No acute abnormality is identified in the chest. 2. Cholelithiasis.? ? ? Dictated by: Maicol Faith M.D. on 07/06/2021 at 13:28 ? ? Approved by: Maicol Faith M.D. on 07/06/2021 at 13:35 ? ECG Data Interpretation: NSR, LBBB, L axis deviation. No prior EKGs for comparison MDM Narrative Medical decision making narrative: 80-year-old male with a history of flaccid bladder, hypertension, hyperlipidemia presents to the ED with 2 days of shortness of breath. Concern for ACS versus PE versus COVID-19 versus pneumonia versus anemia versus electrolyte derangements versus new onset heart failure. Will order EKG, chest x-ray, labs, troponin, BNP, D-dimer, COVID-19 test. Will reassess. <Colin Higginbotham DO - Last Filed: 07/06/21 17:00> Lab Data Labs: Lab Results 07/06/21 07/06/21 07/06/21 Range/Units 11:55 11:55 11:55 WBC 5.0 (4.5-11.0) X10^3/uL RBC 4.00 L (4.5-5.9) X10^6/uL Hgb 12.9 L (13.5-17.5) g/dL Hct 39.6 L (41-53) % MCV 98.8 (80-100) fL MCH 32.3 (26-34) PG MCHC 32.7 (30-36) % RDW 14.8 (11.6-14.8) % Plt Count 244 (150-400) X10^3/uL Neut % (Auto) 60.1 (50-75) % Lymph % (Auto) 22.3 L (25-40) % [place] % (Auto) 9.5 (3-14) % Eos % (Auto) 7.3 H (2-4) % Baso % (Auto) 0.8 (0-2) % Neut # (Auto) 3000 (9584-2419) /uL Lymph # (Auto) 1100 (5126-4773) /uL [place] # (Auto) 500 (0-900) /uL Eos # (Auto) 400 (0-450) /uL Baso # (Auto) 0 (0-100) /uL D-Dimer 522 H (<230) ng/mL Sodium 139 (137-145) mmol/L Potassium 4.3 (3.4-5.1) mmol/L Chloride 106 (98-107) mmol/L Carbon Dioxide 28 (22-32) mmol/L BUN 15 (9-20) mg/dL Creatinine 0.87 (0.66-1.25) mg/dL Estimated GFR > 60.0 (>60) mL/min BUN/Creatinine Ratio 17.2 (6-22) Glucose 129 H (80-110) mg/dL Calcium 9.3 (8.4-10.2) mg/dL Magnesium 2.0 (1.6-2.3) mg/dL Total Bilirubin 0.3 (0.2-1.3) mg/dL AST 32 (17-59) IU/L ALT 31 (<50) IU/L Alkaline Phosphatase 47 (38-126) U/L Total Creatine Kinase 151 (55-170) U/L CK-MB (CK-2) 2.05 (<2.37) ng/mL CK-MB (CK-2) Rel Index 1.4 L (1.5-5.0) % Troponin I < 0.012 (0.01-0.034) ng/mL NT-Pro-B Natriuret Pep 245 (<450) pg/mL Total Protein 7.3 (6.3-8.2) g/dL Albumin 4.3 (3.5-5.0) g/dL Globulin 3.0 (1.7-4.1) g/dL Albumin/Globulin Ratio 1.4 (1.0-2.8) Lipase 76 (23-300) U/L SARS-CoV-2 (PCR) (Negative) 07/06/21 Range/Units 12:24 WBC (4.5-11.0) X10^3/uL RBC (4.5-5.9) X10^6/uL Hgb (13.5-17.5) g/dL Hct (41-53) % MCV (80-100) fL MCH (26-34) PG MCHC (30-36) % RDW (11.6-14.8) % Plt Count (150-400) X10^3/uL Neut % (Auto) (50-75) % Lymph % (Auto) (25-40) % [place] % (Auto) (3-14) % Eos % (Auto) (2-4) % Baso % (Auto) (0-2) % Neut # (Auto) (1914-3821) /uL Lymph # (Auto) (8252-7400) /uL [place] # (Auto) (0-900) /uL Eos # (Auto) (0-450) /uL Baso # (Auto) (0-100) /uL D-Dimer (<230) ng/mL Sodium (137-145) mmol/L Potassium (3.4-5.1) mmol/L Chloride (98-107) mmol/L Carbon Dioxide (22-32) mmol/L BUN (9-20) mg/dL Creatinine (0.66-1.25) mg/dL Estimated GFR (>60) mL/min BUN/Creatinine Ratio (6-22) Glucose (80-110) mg/dL Calcium (8.4-10.2) mg/dL Magnesium (1.6-2.3) mg/dL Total Bilirubin (0.2-1.3) mg/dL AST (17-59) IU/L ALT (<50) IU/L Alkaline Phosphatase (38-126) U/L Total Creatine Kinase (55-170) U/L CK-MB (CK-2) (<2.37) ng/mL CK-MB (CK-2) Rel Index (1.5-5.0) % Troponin I (0.01-0.034) ng/mL NT-Pro-B Natriuret Pep (<450) pg/mL Total Protein (6.3-8.2) g/dL Albumin (3.5-5.0) g/dL Globulin (1.7-4.1) g/dL Albumin/Globulin Ratio (1.0-2.8) Lipase (23-300) U/L SARS-CoV-2 (PCR) Negative (Negative) Discharge Plan Departure Patient Disposition: Admitted as Observation Clinical Impression: Shortness of breath Admit Date/Time: 07/06/21 14:58 Admit Provider: Tano Clark <Colin Higginbotham, - Last Filed: 07/06/21 17:00> Cosign ED Attending Cosignature Attestation: Dr Higginbotham Co-Sign Statement: I was available for consultation during this patient's emergency department visit. This chart is signed by myself for administrative purposes only. I did not have direct contact with this patient during this visit. They were seen independen tly by the [facility].
[2021-07-06 12:36] LABS: Alanine Aminotransferase 31 IU/L (<50); Albumin 4.3 g/dL (3.5-5.0); Albumin Globulin Ratio 1.4 (1.0-2.8); Alkaline Phosphatase 47 U/L (38-126); Aspartate Aminotransferase 32 IU/L (17-59); BUN Creatinine Ratio 17.2 (6-22); Bilirubin Total 0.3 mg/dL (0.2-1.3); Blood Urea Nitrogen 15 mg/dL (9-20); Calcium 9.3 mg/dL (8.4-10.2); Carbon Dioxide 28 mmol/L (22-32); Chloride 106 mmol/L (98-107); Creatine Kinase 151 U/L (55-170); Estimated Glomerular Filt Rate > 60.0 mL/min (>60); Glucose 129 mg/dL (80-110); HEMOLYSIS < 15 (0-50); Lipase 76 U/L (23-300); Potassium 4.3 mmol/L (3.4-5.1); Sodium 139 mmol/L (137-145); Total Protein 7.3 g/dL (6.3-8.2)
[2021-07-06 12:48] LABS: COVID19 -Nasal RAPID Negative (Negative)
[2021-07-06 12:48] LABS: NT-proBNP (BNP-Adult 18+) 245 pg/mL (<450); Troponin I < 0.012 ng/mL (0.01-0.034)
[2021-07-06 12:51] LABS: CKMB % Relative Index 1.4 % (1.5-5.0); Creatine Kinase MB 2.05 ng/mL (<2.37)
[2021-07-06 13:01] LABS: D Dimer 522 ng/mL (<230)
--- NOTE | 2021-07-06 13:10 | DI.CT.S_ITS ---
PROCEDURE: CT ANGIO CHEST PE PROTOCOL INDICATIONS: SOB, lightheadedness, chest tightness TECHNIQUE: After the administration of intravenous contrast, 2 mm thick sections acquired from the pulmonary apices to the posterior costophrenic angles. 3-dimensional maximum intensity projection (MIP) coronal and sagittal reformats were then acquired through the thorax. For radiation dose reduction, the following was used: automated exposure control, adjustment of mA and/or kV according to patient size. COMPARISON: [facility], CR, XR CHEST 1V, 07/06/2021, 11:47. FINDINGS: Image quality: Excellent. Pulmonary arteries: Pulmonary arteries are normal in size, and demonstrate no intraluminal filling defects to suggest central pulmonary embolism. Lungs and pleura: Lungs are clear. No pleural effusions or pneumothorax. Central and peripheral airways are patent. Mediastinum: Heart size is normal, without pericardial effusion. Moderate coronary artery calcifications are present. Aortic valve calcifications are also noted. No mediastinal or hilar adenopathy. Surgical clips are seen in the upper mediastinum. Thoracic aorta is normal in caliber and enhancement. Esophagus is normal in caliber, without hiatal hernia. Bones and chest wall: No suspicious bony lesions. Ribs and thoracic spine appear intact throughout. Thyroid appears normal. No axillary or supraclavicular adenopathy. Abdomen: A few calcified gallstones are seen in the gallbladder. Visualized upper abdominal solid organs otherwise appear normal in the early arterial phase of enhancement. IMPRESSION: 1. No acute pulmonary embolus. No acute abnormality is identified in the chest. 2. Cholelithiasis. Dictated by: Maicol Faith M.D. on 07/06/2021 at 13:28 Approved by: Maicol Faith M.D. on 07/06/2021 at 13:35
--- NOTE | 2021-07-06 16:24 | DI.ECHO.S_ITS ---
[facility] +---------+ : : [address] [address] : : : : [id number] : : : : Phone: [phone] Echocardiogram Report + + :Name: ASHER GARCIA Study Date: 07/07/2021 Height: 72 in : :[facility] ReadingLocation: Weight: 229 lb : : Gender: Male BSA: 2.3 m2 : :: 1940 Age: 81 yrs BP: 129/67 mmHg: :Reason For Study: CHEST PAIN : :Ordering Physician: ALYSSA, : :NIK LOPEZ Performed By: May Harvey : :Referring: NIK SHAH : + + Interpretation Summary The ejection fraction is estimated to be 35-40%. Left ventricular global longitudinal strain average is -15%. Diastolic function could not be accurately assessed. The right ventricle is normal in size and function. There is moderate aortic stenosis. Unable to estimate PASP. Procedure: A two-dimensional transthoracic echocardiogram with color flow and Doppler was performed. The study quality was technically adequate. There is no prior echocardiogram noted for this patient. The heart rate ranged between 70-80 bpm during the study. Left Ventricle: The left ventricle is normal in size and wall thickness. The ejection fraction is estimated to be 35-40%. Left ventricular global longitudinal strain average is -15%. Septal motion is consistent with conduction abnormality. Diastolic function could not be accurately assessed due to unobtainable data. Right Ventricle: The right ventricle is normal in size and function. Atria: Both atria are normal in size. There is no Doppler evidence for an interatrial shunt. Mitral Valve: The mitral valve leaflets appear mildly thickened, but open well. There is mild mitral annular calcification. There is trace mitral regurgitation. Aortic Valve: The aortic valve is trileaflet. The aortic valve is moderately calcified. There is mildly reduced leaflet mobility. There is moderate aortic stenosis. The peak aortic velocity is 2.97 m/sec. The aortic valve mean gradient is 21 mmHg. The calculated aortic valve area is 1.5 cm2. No aortic regurgitation is present. Tricuspid Valve: The tricuspid valve is normal in structure and function. There is trace tricuspid regurgitation. Pulmonary artery pressures cannot be estimated because of the lack of a measurable TR jet velocity but the IVC suggests a CVP of around 3 mmHg. Pulmonic Valve: The pulmonic valve leaflets are thin and pliable; valve motion is normal. There is mild pulmonic regurgitation. Great Vessels: The aortic root is normal size. The ascending aorta is mildly enlarged. The IVC is of normal diameter and collapses greater than 50% with a sniff. This suggests a low right atrial pressure of 3 mm Hg. Pericardium/ Pleura There is no pericardial effusion. There is no pleural effusion. MMode/2D Measurements & Calculations LVIDd: 5.4 cm LVOT diam: 2.6 cm LVIDs: 4.8 cm Ao root diam: 3.8 cm FS: 12.0 % asc Aorta Diam: 3.8 cm IVSd: 0.91 cm Ao Arch Diam (Prox Trans): 3.8 cm LVPWd: 0.84 cm LV mercado. diameter/BSA (cm/m^2): 2.4 LV sys. diameter/BSA (cm/m^2): 2.1 LA A2 area: 24.9 cm2 RA long axis: 5.0 cm LA A4 area: 15.9 cm2 RA area: 16.0 cm2 LA length (vol): 4.6 cm RA vol: 43.2 ml LA vol: 73.5 ml RA : 19.1 ml/m2 LA vol index: 32.6 ml/m2 IVC diam: 1.2 cm RVD1 (basal): 3.7 cm TAPSE: 1.9 cm Doppler Measurements & Calculations Ao V2 max: 297.4 cm/sec LVOT Max Todd: 84.6 cm/sec Ao V2 mean: 202.7 cm/sec LV V1 max P.9 mmHg Ao max P.2 mmHg LV V1 VTI: 15.8 cm Ao mean P.7 mmHg JEF(I,D): 1.5 cm2 Ao V2 VTI: 57.8 cm JEF(V,D): 1.5 cm2 sev ratio: 0.27 JEF indexed to BSA (cm^2/m^2): 0.65 MV E max todd: 63.9 cm/sec PA V2 max: 127.1 cm/sec MV A max todd: 137.0 cm/sec PA V2 mean: 86.5 cm/sec MV E/A: 0.47 PA mean P.3 mmHg Med Peak E' Todd: 4.4 cm/sec PA pr(Accel): 32.8 mmHg E/E' med: 14.6 Lat Peak E' Todd: 5.9 cm/sec E/E' lat: 10.9 E/e' average: 12.7 MV dec time: 0.16 sec SV(LVOT): 85.4 ml Reading Physician:02:14 PM
[2021-07-06 16:37] LABS: COVID19 - ADMIT (NP swab/PCR) Negative (Negative)
--- NOTE | 2021-07-06 17:40 | P.HP_ITS ---
History of Present Illness History of Present Illness Date Patient Seen: 07/06/21 Time Patient Seen: 17:40 Chief complaint: pcp ref. SOB, chest pain, lightheaded, Narrative: This is a 80-year-old male with a past medical history of coronary artery disease status post stenting almost 20 years ago, hypertension, hyperlipidemia, BPH s/p TURP complicated by urinary retention requiring self catheterization twice daily, recurrent UTI, and prior pulmonary embolism no longer on anticoagulation who presented to the emergency room today with exertional chest pain. Patient states that yesterday he was walking with his when he began to feel chest tightness, approximately 3-4/10 but this did not rise to the level of overt pain. He also noted some difficulty breathing which improved with sitting and resting. But he continued to have some lightheadedness and fatigue the following morning who so he decided to come for evaluation. He denied any diaphoresis, nausea, vomiting, left jaw or arm pain. He does have some chronic tingling in his right hand which has been unchanged recently. He denies any recent fever, chills. In the emergency room, the patient's vital signs were unremarkable, his EKG showed sinus rhythm with a new left bundle branch block compared to 2013. Laboratory evaluation showed an unremarkable CBC, negative D-dimer for age at 89, and unremarkable chemistry panel. Troponin testing was negative. ProBNP was 245. COVID-19 testing was negative. Chest x-ray showed no acute abnormalities. Despite negative D-dimer CT angiogram was performed by the ER, this showed no acute pulmonary embolism and no acute cardiopulmonary disease. Patient's heart score is noted to be a 6. He was admitted under observation for further evaluation of chest pain with plan for stress testing in the morning. Patient History Medical History (Updated 07/06/21 @ 17:40 by Tano Clark DO) CAD (coronary artery disease) Flaccid bladder History of UTI Rotator cuff arthropathy Umbilical hernia with obstruction UTI (urinary tract infection) Surgical History (Updated 07/06/21 @ 17:40 by Tano Clark DO) History of coronary artery stent placement History of knee replacement Hx of vasectomy Family & Social History Family History (Updated 07/06/21 @ 17:41 by Tano Clark DO) Father Cancer Mother Congestive heart failure Social History: household members spouse lives independently Yes Safety & Behavioral: Feels Safe in Current Yes Environment Been Physically Hurt or No Threatened By a Person Suicidal Ideation Description None Tobacco & Substance use: Smoking Status Never smoker alcohol intake former alcohol intake frequency 0-2 drinks per day Substance Use Type does not use Meds Home Medications and Allergies Home Medications Medication Instructions Recorded Confirmed Type LOPERAMIDE - 2 mg PO PRN PRN #0 02/07/11 07/06/21 History (#IMODIUM) aspirin 81 mg chewable tablet 81 mg PO QDAY #0 02/07/11 07/06/21 History [FISH OIL ] 14,000 mg PO QDAY #0 06/27/13 07/06/21 History [ANTACID] PO PRN PRN #0 07/02/13 History alfuzosin 10 mg tablet,extended 10 mg PO DAILY #90 tab 02/10/21 02/10/21 Rx release 24 hr atorvastatin 10 mg tablet 10 mg PO DAILY 02/10/21 07/06/21 History enalapril maleate 10 mg tablet 10 mg PO BEDTIME 02/10/21 07/06/21 History iron 150 mg-vit C 60 mg-folate 1 1 tab PO DAILY 02/10/21 02/10/21 History [id number] tablet methotrexate sodium 2.5 mg tablet 2.5 mg PO QWEEK 02/10/21 07/06/21 History finasteride 5 mg tablet 5 mg PO BEDTIME 07/06/21 07/06/21 History Allergies Allergy/AdvReac Type Severity Reaction Status Date / Time erythromycin base Allergy Mild SKIN LESION Verified 07/06/21 11:57 oxycodone Allergy Mild NIGHT Verified 07/06/21 11:57 SWEATS Sulfa (Sulfonamide Allergy Mild SKIN LESION Verified 07/06/21 11:57 Antibiotics) OYSTER EXTRACT Allergy Mild GI UPSET Uncoded 07/06/21 11:57 Review of Systems Review of Systems Narrative: All other systems reviewed with the patient and are negative unless otherwise stated. Exam Vital Signs (past 8 hours): - 07/06/21 11:39 07/06/21 11:50 07/06/21 11:52 Temperature 97.6 F Pulse Rate 69 67 65 Respiratory Rate 14 24 20 Blood Pressure 148/88 H 141/62 H Pulse Oximetry 99 97 97 07/06/21 12:00 07/06/21 12:01 07/06/21 12:30 Temperature Pulse Rate 65 63 59 L Respiratory Rate 25 H 21 17 Blood Pressure 118/76 122/55 L Pulse Oximetry 96 96 95 07/06/21 13:00 07/06/21 13:30 07/06/21 13:44 Temperature Pulse Rate 57 L 57 L 55 L Respiratory Rate 16 19 24 Blood Pressure 115/57 L 120/64 Pulse Oximetry 95 96 96 07/06/21 14:00 07/06/21 14:30 07/06/21 15:00 Temperature Pulse Rate 55 L 55 L 56 L Respiratory Rate 18 19 18 Blood Pressure 124/67 128/63 136/66 Pulse Oximetry 95 95 96 07/06/21 15:30 07/06/21 15:59 07/06/21 16:22 Temperature 96.3 F L Pulse Rate 54 L 56 L Respiratory Rate 18 20 Blood Pressure 128/61 121/73 Pulse Oximetry 95 98 98 Oxygen Delivery Method Room Air Narrative Exam Narrative: GENERAL APPEARANCE: Well developed, well nourished, in no acute distress. SKIN: Inspection of the skin reveals no rashes, ulcerations or petechiae. HEENT: Normocephalic atraumatic, extraocular muscles are intact, oropharynx is clear and mucous membranes are moist, neck is supple without adenopathy NECK: Supple and symmetric. There was no thyroid enlargement, and no tenderness, or masses were felt. CHEST: Normal AP diameter and normal contour without any kyphoscoliosis. LUNGS: Auscultation of the lungs revealed no wheezes, rhonchi, or rales. CARDIOVASCULAR: There was a regular rate and rhythm. 2/6 systolic murmur. Peripheral pulses were 2+ and symmetric. ABDOMEN: Soft and nontender with normal bowel sounds. No ascites was noted. MUSCULOSKELETAL: There was no tenderness or effusions noted. Muscle strength and tone were normal. EXTREMITIES: No cyanosis, clubbing or edema. NEUROLOGIC: Alert and oriented x 3. Normal affect. Strength is +5/5 in the Upper Extremities and Lower Extremities Bilaterally. Sensation to touch was normal. Objective Labs Result Diagrams: 07/06/21 11:55 07/06/21 11:55 Labs: Laboratory Results - last 24 hr 07/06/21 07/06/21 07/06/21 11:55 11:55 11:55 WBC 5.0 RBC 4.00 L Hgb 12.9 L Hct 39.6 L MCV 98.8 MCH 32.3 MCHC 32.7 RDW 14.8 Plt Count 244 Neut % (Auto) 60.1 Lymph % (Auto) 22.3 L [place] % (Auto) 9.5 Eos % (Auto) 7.3 H Baso % (Auto) 0.8 Neut # (Auto) 3000 Lymph # (Auto) 1100 [place] # (Auto) 500 Eos # (Auto) 400 Baso # (Auto) 0 D-Dimer 522 H Sodium 139 Potassium 4.3 Chloride 106 Carbon Dioxide 28 BUN 15 Creatinine 0.87 Estimated GFR > 60.0 BUN/Creatinine Ratio 17.2 Glucose 129 H Calcium 9.3 Magnesium 2.0 Total Bilirubin 0.3 AST 32 ALT 31 Alkaline Phosphatase 47 Total Creatine Kinase 151 CK-MB (CK-2) 2.05 CK-MB (CK-2) Rel Index 1.4 L Troponin I < 0.012 NT-Pro-B Natriuret Pep 245 Total Protein 7.3 Albumin 4.3 Globulin 3.0 Albumin/Globulin Ratio 1.4 Lipase 76 SARS-CoV-2 (PCR) 07/06/21 07/06/21 12:24 15:00 WBC RBC Hgb Hct MCV MCH MCHC RDW Plt Count Neut % (Auto) Lymph % (Auto) [place] % (Auto) Eos % (Auto) Baso % (Auto) Neut # (Auto) Lymph # (Auto) [place] # (Auto) Eos # (Auto) Baso # (Auto) D-Dimer Sodium Potassium Chloride Carbon Dioxide BUN Creatinine Estimated GFR BUN/Creatinine Ratio Glucose Calcium Magnesium Total Bilirubin AST ALT Alkaline Phosphatase Total Creatine Kinase CK-MB (CK-2) CK-MB (CK-2) Rel Index Troponin I NT-Pro-B Natriuret Pep Total Protein Albumin Globulin Albumin/Globulin Ratio Lipase SARS-CoV-2 (PCR) Negative Negative Assessment & Plan Assessment & Plan narrative: This is a 80-year-old male with a past medical history of coronary artery disease status post stenting almost 20 years ago, hypertension, hyperlipidemia, BPH s/p TURP complicated by urinary retention requiring self catheterization twice daily, recurrent UTI, and prior pulmonary e mbolism no longer on anticoagulation who presented to the emergency room today with exertional chest pain. 1. exertional chest pain, acute in setting of known CAD. - TTE, stress testing ordered. Check 8 hour troponin, initial troponin negative to rule out ACS. - EKG showing LBBB, previous tracing from [address]/T wave abnormalities. - has a history of CAD with prior stenting, but >20 years ago. Taking a baby aspirin daily. - continue asa, increase statin to 40 mg nightly. - TSH, lipids, and A1c in the AM. - HEART score a 6. 2. HTN - continue home medications 3. HLD - increase statin 4. chronic urinary retention - no current symptoms, continue BID self catheterization. Has a history of TURP complicated by neurogenic bladder requiring BID self catheterization. History of frequent UTI in the past per urology notes. Sees Dr. Harper. Code: DNR as discussed with the patient. Surrogate he states is his . Dispo: Admitted under observation status as his stay is not expected to exceed two midnight. DVT: Lovenox daily I have utilized all available immediate resources to obtain, update, or review the patient's current medications. COVID-19 COVID-19 status: Negative Time Spent With Patient Critical Care time: I spent a total of [] minutes of critical care time on this patient's care today; this time is exclusive of procedural time. Quality VTE Deep Vein Thrombosis/Pulmonary Embolism Present on Admission: No MIPS - Admit I confirm the patient?s Advance Care Plan is present, Code status is documented, Surrogate decision maker is in patient?s record [If Yes, STOP here]: Yes
[2021-07-06] MEDS: ENALAPRIL 5 MG TABLET 10 MG PO (20:36)
[2021-07-06] MEDS: ATORVASTATIN 20 MG TABLET 40 MG PO (20:36)
[2021-07-06] MEDS: FINASTERIDE 5 MG TABLET PO (20:37)
[2021-07-06 21:07] LABS: Troponin I < 0.012 ng/mL (0.01-0.034)
[2021-07-07] VITALS (15 sets, daily range): BP systolic 110–140; BP diastolic 54–86; PULSE 68–83; RESP 16–20; TEMP 36.2–37.3; O2SAT 93–99
[2021-07-07 06:15] LABS: Add Manual Diff / Slide Review NO; Basophils Absolute Auto 0 /uL (0-100); Basophils Percent Auto 0.5 % (0-2); Eosinophils Absolute Auto 400 /uL (0-450); Eosinophils Percent Auto 5.1 % (2-4); Hematocrit 39.8 % (41-53); Hemoglobin 13.3 g/dL (13.5-17.5); Lymphocytes Absolute Auto 600 /uL (1100-4500); Lymphocytes Percent Auto 8.9 % (25-40); Mean Corpuscular HGB Conc 33.3 % (30-36); Mean Corpuscular Hemoglobin 32.6 PG (26-34); Mean Corpuscular Volume 97.7 fL (80-100); Monocytes Absolute Auto 600 /uL (0-900); Monocytes Percent Auto 8.4 % (3-14); Neutrophils Absolute Auto 5500 /uL (1500-7000); Neutrophils Percent Auto 77.1 % (50-75); Platelet Count 224 X10^3/uL (150-400); Red Blood Cell Count 4.07 X10^6/uL (4.5-5.9); Red Cell Distribution Width 14.9 % (11.6-14.8); White Blood Cell Count 7.1 X10^3/uL (4.5-11.0)
[2021-07-07 06:25] LABS: Hemoglobin A1C% w Est Avg Glu 5.5 % (4.0-6.0)
[2021-07-07 06:26] LABS: BUN Creatinine Ratio 17.2 (6-22); Blood Urea Nitrogen 16 mg/dL (9-20); Carbon Dioxide 30 mmol/L (22-32); Chloride 106 mmol/L (98-107); Cholesterol 129 mg/dL (140-199); Estimated Glomerular Filt Rate > 60.0 mL/min (>60); Glucose 97 mg/dL (80-110); HDL Cholesterol 46 mg/dL (40-60); HEMOLYSIS 16 (0-50); LDL Cholesterol Calculated 58 mg/dL (<100); Magnesium 1.9 mg/dL (1.6-2.3); Potassium 4.2 mmol/L (3.4-5.1); Sodium 139 mmol/L (137-145); Triglycerides 125 mg/dL (35-150)
[2021-07-07 06:56] LABS: TSH w/ Reflex to FT4 1.23 uIU/mL (0.47-4.68)
[2021-07-07] MEDS: ASPIRIN EC 81 MG TABLET PO (09:45)
[2021-07-07] MEDS: ENOXAPARIN 40 MG/0.4 ML SYRINGE SUBCUT (09:45)
--- NOTE | 2021-07-07 10:28 | CM.DANOTE ---
DCP Assessment: Patient is a 81 yr old male who was admitted for Chest pain and cardiac work up. Patient had an ECHO this AM and is pending a Stress test this afternoon. patient who was sitting up in a chair reading at time of CM visit. CM met with patient and explained role. Patient was alert and oriented x3 well groomed and able to participate in DC planning discussion. Patient currently independent at baseline and lives in a single level home with his elvira in [place]. I: [facility] and self pay Plan: Either transferred for further cardiac care or DC home with after results of ECHO and stress test are reviewed. No DC planning needs noted at this time but CM department will continue to follow to assist with any new DC planning needs that may arise. Lashawn Tan RN, CM Discharge Assessment Start: 07/07/21 10:25 Freq: Status: Active Protocol: Document 07/07/21 10:25 HS (Rec: 07/07/21 10:28 HS [id number]) Discharge Planning Assessment Assigned Gas Regulator Repairer Lashawn Tan CM/HUMBERTO DPOA/Assigned Designee Name Elvira Buenrostro Contact Information [phone] Advance Directives? Yes Advance Directives on File No History Provided By Patient,Medical Record Has Patient been admitted in last 30 No days? Prior Living Arrangements House Household Members spouse Type of transporation used prior to Drives own vehicle admit Independent with ADL's Yes Is patient alert and oriented? Yes Caregiver for Another No Barriers to Discharge No Discharge Plan Home Referrals Initiated None needed Whiteboard Updated in Patient Room with Yes name and ext. # of Gas Regulator Repairer Review Status In Process Next Review Type Continued Stay Review
--- NOTE | 2021-07-07 18:24 | P.PN_ITS ---
Subjective Subjective Date Patient Seen: 07/07/21 Time Patient Seen: 18:24 Interval history: No chest pain today. Echo showed an EF of 35-40%, stress testing was positive, showed a large apical defect, fixed. Dr. Osborne states study suggests multivessel disease and recommended LHC. [facility] currently full, trying to obtain bed for LHC. Discussed with Dr. Weber library circulation clerk, did not recommend heparin infusion, continued asa, statin, thanh and beta safia therapy. Patient was started on low dose coreg at 3.125 BID given EF tonight. Exam Vital Signs (past 8 hours): - 07/07/21 12:00 07/07/21 14:58 07/07/21 15:29 Temperature 98.9 F 98.2 F Pulse Rate 83 79 Respiratory Rate 18 18 Blood Pressure 131/67 120/86 Pulse Oximetry 95 98 95 07/07/21 17:00 Temperature Pulse Rate Respiratory Rate Blood Pressure Pulse Oximetry 95 Oxygen Delivery Method Room Air Oxygen Flow Rate 0 Narrative Exam Narrative: GENERAL APPEARANCE: Well developed, well nourished, in no acute distress. SKIN: Inspection of the skin reveals no rashes, ulcerations or petechiae. HEENT:? Normocephalic atraumatic, extraocular muscles are intact, oropharynx is clear and mucous membranes are moist, neck is supple without adenopathy NECK: Supple and symmetric. There was no thyroid enlargement, and no tenderness, or masses were felt. CHEST: Normal AP diameter and normal contour without any kyphoscoliosis. LUNGS: Auscultation of the lungs revealed no wheezes, rhonchi, or rales. CARDIOVASCULAR: There was a regular rate and rhythm. 2/6 systolic murmur. Peripheral pulses were 2+ and symmetric. ABDOMEN: Soft and nontender with normal bowel sounds. No ascites was noted. MUSCULOSKELETAL: There was no tenderness or effusions noted. Muscle strength and tone were normal. EXTREMITIES: No cyanosis, clubbing or edema. NEUROLOGIC: Alert and oriented x 3. Normal affect. Strength is +5/5 in the Upper Extremities and Lower Extremities Bilaterally. Sensation to touch was normal. Objective Imaging Echo: Radiologist's impression: The ejection fraction is estimated to be 35-40%. Left ventricular global longitudinal strain average is -15%. Diastolic function could not be accurately assessed. The right ventricle is normal in size and function. There is moderate aortic stenosis. Labs Result Diagrams: 07/07/21 05:15 07/07/21 05:15 Labs: Laboratory Results - last 24 hr 07/06/21 07/07/21 07/07/21 20:31 05:15 05:15 WBC 7.1 RBC 4.07 L Hgb 13.3 L Hct 39.8 L MCV 97.7 MCH 32.6 MCHC 33.3 RDW 14.9 H Plt Count 224 Neut % (Auto) 77.1 H Lymph % (Auto) 8.9 L [place] % (Auto) 8.4 Eos % (Auto) 5.1 H Baso % (Auto) 0.5 Neut # (Auto) 5500 Lymph # (Auto) 600 L [place] # (Auto) 600 Eos # (Auto) 400 Baso # (Auto) 0 Sodium 139 Potassium 4.2 Chloride 106 Carbon Dioxide 30 BUN 16 Creatinine 0.93 Estimated GFR > 60.0 BUN/Creatinine Ratio 17.2 Glucose 97 Hemoglobin A1c Calcium 9.0 Magnesium 1.9 Troponin I < 0.012 Triglycerides 125 Cholesterol 129 L LDL Cholesterol, Calc 58 HDL Cholesterol 46 TSH 07/07/21 07/07/21 05:15 05:15 WBC RBC Hgb Hct MCV MCH MCHC RDW Plt Count Neut % (Auto) Lymph % (Auto) [place] % (Auto) Eos % (Auto) Baso % (Auto) Neut # (Auto) Lymph # (Auto) [place] # (Auto) Eos # (Auto) Baso # (Auto) Sodium Potassium Chloride Carbon Dioxide BUN Creatinine Estimated GFR BUN/Creatinine Ratio Glucose Hemoglobin A1c 5.5 Calcium Magnesium Troponin I Triglycerides Cholesterol LDL Cholesterol, Calc HDL Cholesterol TSH 1.23 PFSH Medical History (Updated 07/06/21 @ 17:40 by Tano Clark DO) CAD (coronary artery disease) Flaccid bladder History of UTI Rotator cuff arthropathy Umbilical hernia with obstruction UTI (urinary tract infection) Surgical History (Updated 07/06/21 @ 17:40 by Tano Clark DO) History of coronary artery stent placement History of knee replacement Hx of vasectomy Family History (Updated 07/06/21 @ 17:41 by Tano Clark DO) Father Cancer Mother Congestive heart failure Social History marital status: number of children: 2 household members: spouse lives independently: Yes Smoking Status: Never smoker alcohol intake: former caffeine: Yes Assessment & Plan Assessment & Plan narrative: This is a 80-year-old male with a past medical history of coronary artery disease status post stenting almost 20 years ago, h ypertension, hyperlipidemia, BPH s/p TURP complicated by urinary retention requiring self catheterization twice daily, recurrent UTI, and prior pulmonary embolism no longer on anticoagulation who presented to the emergency room today with exertional chest pain. 1. exertional chest pain, acute in setting of known CAD, unstable angina ?- Troponins negative. ?- EKG showing LBBB, previous tracing from [address]/T wave abnormalities. ?- has a history of CAD with prior stenting, but >20 years ago. Taking a baby aspirin daily. ?- continue asa, increased statin to 40 mg nightly from home 10 mg. ?- TSH, lipids and A1c unremarkable. TSH 1.2, A1c 5.5%, LDL 58. - HEART score a 6 on admission. - Nuclear stress testing revealed a large fixed apical defect, EF on nuclear st udy at rest 48%, echo EF 35-40%. Echo also reveals moderate aortic stenosis. - Dr. Osborne, central office equipment installer reading stress test, recommended [facility] for probable multi-vessel disease based on stress imaging. Did not recommend heparin infusion currently, Dr. Rivas of cardiology at [facility] agrees. Continue medical management including asa, statin, beta safia and thanh. coreg 3.125 mg to start this evening. Recommended NPO at midnight for [facility] tomorrow AM. 2. HTN ?- continue home medications, added low dose coreg as noted above. 3. HLD ?- increased statin as noted above. Lipid panel TG 125, TC 129, LDL 4. chronic urinary retention ?- no current symptoms, continue BID self catheterization. Has a history of TURP complicated by neurogenic bladder requiring BID self catheterization. History of frequent UTI in the past per urology notes. Sees Dr. Harper. 5. Heart failure with reduced ejection fraction, new diagnosis - EF 35-40% on echo, likely secondary to ischemia based on stress testing. - continue above medical therapies. Code: DNR as discussed with the patient. Surrogate he states is his . Dispo: transfer to [facility] for [facility]. Dr. Rivas cardiology to see in the AM, hospitalist DVT: Lovenox daily I have utilized all available immediate resources to obtain, update, or review the patient's current medications. Time Spent With Patient Critical Care time: I spent a total of [] minutes of critical care time on this patient's care today; this time is exclusive of procedural time. Quality VTE Deep Vein Thrombosis/Pulmonary Embolism Present on Admission: No
--- NOTE | 2021-07-07 18:53 | PM.DS.1 ---
History of Present Illness History of Present Illness Date Patient Seen: 07/07/21 Time Patient Seen: 18:57 Chief complaint: pcp ref. SOB, chest pain, lightheaded, Narrative: This is a 80-year-old male with a past medical history of coronary artery disease status post stenting almost 20 years ago, hypertension, hyperlipidemia, BPH s/p TURP complicated by urinary retention requiring self catheterization twice daily, recurrent UTI, and prior pulmonary embolism no longer on anticoagulation who presented to the emergency room today with exertional chest pain. Patient states that yesterday he was walking with his when he began to feel chest tightness, approximately 3-4/10 but this did not rise to the level of overt pain. He also noted some difficulty breathing which improved with sitting and resting. But he continued to have some lightheadedness and fatigue the following morning who so he decided to come for evaluation. He denied any diaphoresis, nausea, vomiting, left jaw or arm pain. He does have some chronic tingling in his right hand which has been unchanged recently. He denies any recent fever, chills. In the emergency room, the patient's vital signs were unremarkable, his EKG showed sinus rhythm with a new left bundle branch block compared to 2013. Laboratory evaluation showed an unremarkable CBC, negative D-dimer for age at 522, and unremarkable chemistry panel. Troponin testing was negative. ProBNP was 245. COVID-19 testing was negative. Chest x-ray showed no acute abnormalities. Despite negative D-dimer CT angiogram was performed by the ER, this showed no acute pulmonary embolism and no acute cardiopulmonary disease. Patient's heart score is noted to be a 6. He was admitted under observation for further evaluation of chest pain with plan for stress testing in the morning. Discharge Providers Provider Date of admission: 07/06/21 14:58 Discharge Date: 07/07/21 Primary care physician: Monika Márquez PA-C Discharge provider: Tano Clark DO Summary Hospital Course Discharge Diagnosis: Please see hospital course by problem list noted Hospital Course: This is a 80-year-old male with a past medical history of coronary artery disease status post stenting almost 20 years ago, hypertension, hyperlipidemia, BPH s/p TURP complicated by urinary retention requiring self catheterization twice daily, recurrent UTI, and prior pulmonary embolism no longer on anticoagulation who presented to the emergency room with exertional chest pain, ultimately with positive stress testing, recommended for [facility]. 1. exertional chest pain, acute in setting of known CAD, possible unstable angina ?- Troponins negative. ?- EKG showing LBBB, previous tracing from [address]/T wave abnormalities. ?- has a history of CAD with prior stenting, but >20 years ago. Taking a baby aspirin daily. ?- continue asa, increased statin to 40 mg nightly from home 10 mg. ?- TSH, lipids and A1c unremarkable. TSH 1.2, A1c 5.5%, LDL 58. - HEART score a 6 on admission. - Nuclear stress testing revealed a large fixed apical defect, EF on nuclear study at rest 48%, echo EF 35-40%. Echo also reveals moderate aortic stenosis. - Dr. Osborne, wet end tester reading stress test, recommended [facility] for probable multi-vessel disease based on stress imaging. Did not recommend heparin infusion currently. Dr. Rivas of cardiology at [facility] agrees. Continue medical management including asa, statin, beta dianna and tay. coreg 3.125 mg to start this evening. Recommended NPO at midnight for [facility] tomorrow AM. Dr. Martell, hospitalist at accepts for transfer to telemetry bed. 2. HTN ?- continue home medications, added low dose coreg as noted above. 3. HLD ?- increased statin as noted above. Lipid panel TG 125, TC 129, LDL 58, HDL 46. 4. chronic urinary retention ?- no current symptoms, continue BID self catheterization. Has a history of TURP complicated by neurogenic bladder requiring BID self catheterization. History of frequent UTI in the past per urology notes. Sees Dr. Harper. 5. Heart failure with reduced ejection fraction, new diagnosis - EF 35-40% on echo, likely secondary to ischemia based on stress testing. Stress testing EF 48% at rest. - continue above medical therapies. Code: DNR as discussed with the patient. Surrogate he states is his . Dispo: transfer to [facility] for [facility]. Dr. Rivas cardiology to see in the AM, hospitalist Dr. martell accepts. DVT: Lovenox daily I have utilized all available immediate resources to obtain, update, or review the patient's current medications. Time Spent with Patient Time spent: Greater than 30 minutes Exam Vital Signs (past 8 hours): - 07/07/21 12:00 07/07/21 14:58 07/07/21 15:29 Temperature 98.9 F 98.2 F Pulse Rate 83 79 Respiratory Rate 18 18 Blood Pressure 131/67 120/86 Pulse Oximetry 95 98 95 07/07/21 17:00 Temperature Pulse Rate Respiratory Rate Blood Pressure Pulse Oximetry 95 Oxygen Delivery Method Room Air Oxygen Flow Rate 0 Narrative Exam Narrative: GENERAL APPEARANCE: Well developed, well nourished, in no acute distress. SKIN: Inspection of the skin reveals no rashes, ulcerations or petechiae. HEENT:? Normocephalic atraumatic, extraocular muscles are intact, oropharynx is clear and mucous membranes are moist, neck is supple without adenopathy NECK: Supple and symmetric. There was no thyroid enlargement, and no tenderness, or masses were felt. CHEST: Normal AP diameter and normal contour without any kyphoscoliosis. LUNGS: Auscultation of the lungs revealed no wheezes, rhonchi, or rales. CARDIOVASCULAR: There was a regular rate and rhythm. 2/6 systolic murmur. Peripheral pulses were 2+ and symmetric. ABDOMEN: Soft and nontender with normal bowel sounds. No ascites was noted. MUSCULOSKELETAL: There was no tenderness or effusions noted. Muscle strength and tone were normal. EXTREMITIES: No cyanosis, clubbing or edema. NEUROLOGIC: Alert and oriented x 3. Normal affect. Strength is +5/5 in the Upper Extremities and Lower Extremities Bilaterally. Sensation to touch was normal. Objective Labs Result Diagrams: 07/07/21 05:15 07/07/21 05:15 Labs: Laboratory Results - last 24 hr 07/06/21 07/07/21 07/07/21 20:31 05:15 05:15 WBC 7.1 RBC 4.07 L Hgb 13.3 L Hct 39.8 L MCV 97.7 MCH 32.6 MCHC 33.3 RDW 14.9 H Plt Count 224 Neut % (Auto) 77.1 H Lymph % (Auto) 8.9 L [place] % (Auto) 8.4 Eos % (Auto) 5.1 H Baso % (Auto) 0.5 Neut # (Auto) 5500 Lymph # (Auto) 600 L [place] # (Auto) 600 Eos # (Auto) 400 Baso # (Auto) 0 Sodium 139 Potassium 4.2 Chloride 106 Carbon Dioxide 30 BUN 16 Creatinine 0.93 Estimated GFR > 60.0 BUN/Creatinine Ratio 17.2 Glucose 97 Hemoglobin A1c Calcium 9.0 Magnesium 1.9 Troponin I < 0.012 Triglycerides 125 Cholesterol 129 L LDL Cholesterol, Calc 58 HDL Cholesterol 46 TSH 07/07/21 07/07/21 05:15 05:15 WBC RBC Hgb Hct MCV MCH MCHC RDW Plt Count Neut % (Auto) Lymph % (Auto) [place] % (Auto) Eos % (Auto) Baso % (Auto) Neut # (Auto) Lymph # (Auto) [place] # (Auto) Eos # (Auto) Baso # (Auto) Sodium Potassium Chloride Carbon Dioxide BUN Creatinine Estimated GFR BUN/Creatinine Ratio Glucose Hemoglobin A1c 5.5 Calcium Magnesium Troponin I Triglycerides Cholesterol LDL Cholesterol, Calc HDL Cholesterol TSH 1.23 [facility] Medical History (Updated 07/06/21 @ 17:40 by Tano Clark DO) CAD (coronary artery disease) Flaccid bladder History of UTI Rotator cuff arthropathy Umbilical hernia with obstruction UTI (urinary tract infection) Surgical History (Updated 07/06/21 @ 17:40 by Tano Clark DO) History of coronary artery stent placement History of knee replacement Hx of vasectomy Family History (Updated 07/06/21 @ 17:41 by Tano Clark DO) Father Cancer Mother Congestive heart failure Social History marital status: number of children: 2 household members: spouse lives independently: Yes Smoking Status: Never smoker alcohol intake: former caffeine: Yes Discharge Plan Discharge Plan Disposition: [facility] Discharge Data Primary Care Provider: Monika Márquez Attending Provider: Tano Clark VTE Deep Vein Thrombosis/Pulmonary Embolism Present on Admission: No MIPS - Admit I confirm the patient?s Advance Care Plan is present, Code status is documented, Surrogate decision maker is in patient?s record [If Yes, STOP here]: Yes MIPS - DC The patient has current or prior documentation of left ventricular ejection fraction (LVEF) less than 40%, or moderate or severely depressed left ventricular systolic function.: Yes A. The patient was prescribed or already taking an Angiotensin-Converting Enzyme (TAY) Inhibitor, or Angiotensin Receptor Dianna (ARB).: Yes B. The patient was prescribed or already taking a beta-dianna. [If Yes to Both A & B, STOP here]: Yes
[2021-07-07] MEDS: ATORVASTATIN 20 MG TABLET 40 MG PO (21:51)
[2021-07-07] MEDS: ENALAPRIL 5 MG TABLET 10 MG PO (21:51)
[2021-07-07] MEDS: FINASTERIDE 5 MG TABLET PO (21:52)
[2021-07-07] MEDS: carvediloL 3.125 MG TABLET PO (21:52)
--- NOTE | 2021-07-07 22:38 | PC.NURSE ---
Evening Shift Note- Patient alert and oriented and able to make needs known to staff. No complaints of pain or discomfort. Patient independent in room. Patient transfering to [facility] in [place]. Report called to Car at transfer center at 2230. [facility] to [facility] picker patient at 2400.
--- NOTE | 2021-07-08 01:46 | PC.NURSE ---
At approx 0010, pt was taken by ALS personnel to [facility] for procedure. Report given to VM by prior shift. Telemetry removed, IV still present. Pt stable and aware of plan of care. Last tele reading NSR 1?AVB & BBB w/ cardiac ectopy.
--- NOTE | 2021-07-08 05:17 | DI.NM.S_ITS ---
DATE OF SERVICE: PROCEDURE: Pharmacological perfusion study. INDICATIONS: Chest pain, shortness of breath with underlying hypertension and hyperlipidemia. RADIOPHARMACEUTICAL: 26.1 millicurie technetium-99m Myoview IV was injected at stress and 11.3 millicurie technetium-99m Myoview IV was injected at rest. CARDIAC STRESS: The patient underwent IV Lexiscan perfusion study under the supervision of an attending staff using IV Lexiscan as per standard protocol. Baseline rhythm was sinus with left bundle branch block. During stress, patient remained in left bundle branch block and sinus rhythm with frequent PACs and PVCs. The patient developed lightheadedness, headache and nausea, which got resolved within 2 minutes in recovery. Remained hemodynamically stable. No significant sustained arrhythmias seen. RAW DATA: There is increased subdiaphragmatic activity. GATED STUDY: Resting LV ejection fraction 48% and stress LV ejection fraction 42% with apical hypokinesis, as well as septal hypokinesis. Resting end- diastolic volume 216 mL suggestive of dilated left ventricle. TID ratio 1.11, which is within normal limits. Lung/heart ratio 0.38 which is within normal limits. MYOCARDIAL PERFUSION SCAN: Stress supine, resting supine and stress prone images were compared to each other. It appears to be that patient has predominantly fixed moderate size, moderate to severely decreased perfusion of mid to distal anterior wall extending into the apex as well as the entire septum. There is a moderate to severely decreased perfusion of basal inferior wall, as well. There is no significant reversible ischemia. CONCLUSION: This is an abnormal myocardial perfusion study consistent predominantly with infarction of mid to distal anterior wall, apex, septum as well as basal inferior wall. The patient had exercise perfusion study in 2011, at that time he did not have any convincing ischemia infarction. Left ventricular ejection fraction was 64% at rest and the patient was able to walk on Cosmo protocol for 8 minutes. In this study, the left ventricle is dilated. Left ventricle has decreased. Significant perfusion defect as stated above. Likely patient has multivessel coronary artery disease. I discussed the finding with Dr. Clark and recommended left heart catheterization. Hilario Hines - TANIA/salomon/garrick doc#: [id number]/job#: [id number] dd: 07/07/2021 17:22:00 dt: 07/08/2021 05:08:00 DICTATING MD/COPIES TO: Sabi Osborne MD COPIES MNE: TEZ;
== END 2021-07-08 00:10 | disposition short-term general hospital (02) ==
LOC: ED 14:56 → AC 14:59
PROVIDERS: Emergency Medicine; Admitting Provider Internal Medicine; Emergency Provider Student in an Organized Health Care Education/Training Program; Family Provider Physician Assistant; PCP Physician Assistant; Referring Provider Student in an Organized Health Care Education/Training Program; Visit Provider Internal Medicine
DX: R07.89 Other chest pain (principal); E78.5 Hyperlipidemia, unspecified; I11.0 Hypertensive heart disease with heart failure; I25.10 Atherosclerotic heart disease of native coronary artery without angina pectoris; Z95.5 Presence of coronary angioplasty implant and graft; N40.1 Benign prostatic hyperplasia with lower urinary tract symptoms; R33.8 Other retention of urine; Z20.822 Contact with and (suspected) exposure to COVID-19
CPT/HCPCS: 36415; 71045; 71275; 78452; 80048; 80053; 80061; 82550; 82553; 83036; 83690; 83735; 83880; 84443; 84484; 85025; 85379; 87635; 93005; 93010; 93017; 93306; 94760; 99284; C9803; G0378; A9502; J1650; J2785; Q9967

== ENCOUNTER 2021-07-11 14:40 | Emergency (ER) | payer OTHER, SELFPAY ==
[2021-07-06 16:09] VITALS: BMI 31.1
[2021-07-11 14:45] VITALS: BP 149/70; PULSE 60; RESP 18; TEMP 36.7; O2SAT 99
--- NOTE | 2021-07-11 15:09 | PC.NURSE ---
pt has reddened rash throughout. starting at head and face traveling down to tops of feet with most severe area on torso chest abd area. pt states itching but has refrained from scratching. denies additional symptoms. Lung sounds clear and HR reg.
--- NOTE | 2021-07-11 15:13 | ED.ALLEREA ---
HPI - Allergic Reaction General Chief complaint: Allergic Reaction Stated complaint: possible allergic reaction after hospital stay Time Seen by Provider: 07/11/21 15:02 Source: patient and family Mode of arrival: Ambulatory Limitations: no limitations History of Present Illness HPI narrative: Patient is a 81-year-old male with history Of lupus coronary artery disease and recent stents presenting today with rash. He was admitted here at this hospital on July 06 for chest pain and rule out. He had myocardial perfusion scan on July 06, which was found to be abnormal. At that time he was transferred to [facility] where he had 2 stents placed in his LAD. Since his myocardial perfusion study he has had increasing rash. He states all the providers have VM commented on his rash. It is all over his trunk and extremities. Today he says it is not going away and he has a little tickle in his throat. He has no lip swelling tongue swelling or facial swelling. He took [id number] Zyrtec without any relief. Related Data Home Medications Medication Instructions Recorded Confirmed LOPERAMIDE - 2 mg PO PRN PRN #0 02/07/11 07/06/21 (#IMODIUM) aspirin 81 mg chewable tablet 81 mg PO QDAY #0 02/07/11 07/06/21 [FISH OIL ] 14,000 mg PO QDAY #0 06/27/13 07/06/21 atorvastatin 10 mg tablet 10 mg PO DAILY 02/10/21 07/06/21 enalapril maleate 10 mg tablet 10 mg PO BEDTIME 02/10/21 07/06/21 iron 150 mg-vit C 60 mg-folate 1 1 tab PO DAILY 02/10/21 07/07/21 [id number] tablet methotrexate sodium 2.5 mg tablet 2.5 mg PO QWEEK 02/10/21 07/06/21 finasteride 5 mg tablet 5 mg PO BEDTIME 07/06/21 07/06/21 Previous Rx's Medication Instructions Recorded alfuzosin 10 mg tablet,extended 10 mg PO DAILY #90 tab 02/10/21 release 24 hr prednisone 20 mg tablet 40 mg PO DAILY #10 tab 07/11/21 Allergies Allergy/AdvReac Type Severity Reaction Status Date / Time shellfish derived Allergy Severe Rash Verified 07/11/21 15:04 erythromycin base Allergy Mild SKIN LESION Verified 07/11/21 14:59 oxycodone Allergy Mild NIGHT Verified 07/11/21 14:59 SWEATS Sulfa (Sulfonamide Allergy Mild SKIN LESION Verified 07/11/21 14:59 Antibiotics) OYSTER EXTRACT Allergy Mild GI UPSET Uncoded 07/06/21 11:57 Review of Systems Review of Systems Narrative: GENERAL: Denies chills, fatigue, malaise, fever, sweats, travel HEENT: Denies sinus pain, ear pain, sore throat, difficulty swallowing, neck pain RESPIRATORY: Denies dyspnea, cough, wheezing, hemoptysis, sputum. CARDIOVASCULAR: Denies chest pain, palpitations, orthopnea, edema GASTROINTESTINAL: Denies nausea, vomiting, abdominal pain, diarrhea, constipation, melena. : Denies dysuria, frequency, incontinence, hematuria, urinary retention, flank pain. MUSCULOSKELETAL: Denies weakness, joint pain, or bony pain SKIN: See HPI NEUROLOGIC: Denies weakness, dizziness, headache, numbness, change in speech, confusion PSYCHIATRIC: No concerning psychosocial issues. 12 point review of systems is negative except for those stated above and HPI Patient History Medical History CAD (coronary artery disease) Flaccid bladder History of UTI Rotator cuff arthropathy Umbilical hernia with obstruction UTI (urinary tract infection) Surgical History History of coronary artery stent placement History of knee replacement Hx of vasectomy Family History Father Cancer Mother Congestive heart failure Social History marital status: number of children: 2 household members: spouse lives independently: Yes Smoking Status: Never smoker alcohol intake: former caffeine: Yes Smoking Status: Never smoker alcohol intake frequency: 0-2 drinks per day Substance Use Type: does not use Exam Initial Vital Signs Initial Vital Signs: Vital Signs Temperature 98.1 F 07/11/21 14:45 Pulse Rate 60 07/11/21 14:45 Respiratory Rate 18 07/11/21 14:45 Blood Pressure 149/70 H 07/11/21 14:45 Pulse Oximetry 99 07/11/21 14:45 GENERAL: Alert 81-year-old male HEENT: Head atraumatic,EOMI, pupils reactive, face symmetric, no significant swelling of lips or tongue, managing own secretions speaking clearly CARDIOVASCULAR: Regular rate and rhythm without murmurs, rubs or gallops. RESPIRATORY: Breath sounds equal bilaterally, no wheezes rales or rhonchi. ABDOMEN: Soft, nontender. Normoactive bowel sounds all 4 quadrants. No guarding or rebound. EXTREMITIES: Normal range of motion, no clubbing or edema. Neurovascularly intact NEUROLOGICAL: Alert and oriented x4.Normal gait and speech. SKIN: Erythematous blanchable rash all on torso both anterior and posterior on upper extremities as well, less present on leg Course Orders Ordered: Discontinued Medications Diphenhydramine HCl (Diphenhydramine 50 Mg/Ml Vial) 25 mg IV NOW ONE Stop: 07/11/21 15:18 Last Admin: 07/11/21 15:36 Dose: 25 mg Documented by: NICK Famotidine (Famotidine 20 Mg/2 Ml Vial) 20 mg IV NOW [place] Last Admin: 07/11/21 15:37 Dose: 20 mg Documented by: NICK Methylprednisolone (Methylprednisolone 125 Mg/2 Ml Vial) 125 mg IV NOW ONE Stop: 07/11/21 15:18 Last Admin: 07/11/21 15:37 Dose: 125 mg Documented by: NICK Vital Signs Vital signs: Vital Signs - 8 hr 07/11/21 14:45 Temperature 98.1 F Pulse Rate 60 Respiratory Rate 18 Blood Pressure 149/70 H Pulse Oximetry 99 MDM - Allergic Reaction MDM Narrative Medical decision making narrative: Patient has an urticaria rash covering most of his body. Probably from recent myocardial perfusion study. He is feeling significantly better after Solu-Medrol, Pepcid and Benadryl. He had some throat irritation but no obvious anaphylaxis. That has also improved. At this time will send him home with prednisone. Discharge Plan Departure Patient Disposition: Home Clinical Impression: Urticaria Instructions: DI for Hives Activity Restrictions/Additional Instructions: *You have been diagnosed with urticaria *What to do: At this time you may require allergy testing. However it may likely be related to your stress test. *Continue to take medications as directed Prednisone 40 mg once daily for 5 days start tomorrow--> SENT TO [facility] [place] Benadryl 25-50 mg every 6 hours if needed for itching *Follow up with your primary care provider in 2-3 days *Return to ER if you should have increased difficulty breathing, tongue swelling, lip swelling, difficulty swallowing, or any new, worsening or concerning symptoms Prescriptions: New prednisone 20 mg tablet 40 mg PO DAILY Qty: 10 RF: 0 No Action aspirin 81 MG tablet,chewable 81 mg PO QDAY Qty: 0 RF: 0 LOPERAMIDE - (#IMODIUM) 2 mg PO PRN PRN (Reason: Diarrhea) Qty: 0 RF: 0 [FISH OIL ] tablet 14,000 mg PO QDAY Qty: 0 RF: 0 finasteride 5 mg tablet 5 mg PO BEDTIME RF: 0 atorvastatin 10 mg tablet 10 mg PO DAILY RF: 0 enalapril maleate 10 mg tablet 10 mg PO BEDTIME RF: 0 methotrexate sodium 2.5 mg tablet 2.5 mg PO QWEEK RF: 0 iron ag,[id number] 150 mg iron- 60 mg-1 mg tablet 1 tab PO DAILY RF: 0 alfuzosin 10 mg tablet extended release 24 hr 10 mg PO DAILY Qty: 90 RF: 3 Referrals: Monika Márquez PA-C [Primary Care Provider] -
[2021-07-11 15:36] VITALS: PULSE 56; O2SAT 97
[2021-07-11] MEDS: diphenhydrAMINE 50 MG/ML VIAL 25 MG IV (15:36)
[2021-07-11] MEDS: methylPREDNISolone 125 MG/2 ML VIAL IV (15:37)
[2021-07-11] MEDS: FAMOTIDINE 20 MG/2 ML VIAL IV (15:37)
[2021-07-11 16:00] VITALS: PULSE 54; O2SAT 98
[2021-07-11 16:01] VITALS: BP 134/62; PULSE 55; O2SAT 98
[2021-07-11 16:30] VITALS: PULSE 52; O2SAT 98
[2021-07-11 16:31] VITALS: BP 121/60; PULSE 56; O2SAT 98
== END 2021-07-11 17:02 | disposition home or self-care (01) ==
PROVIDERS: Emergency Provider Emergency Medicine; Family Provider Physician Assistant; PCP Physician Assistant
DX: L50.9 Urticaria, unspecified (principal); T78.49XA Other allergy, initial encounter; R07.9 Chest pain, unspecified
CPT/HCPCS: 36415; 93005; 96374; 96375; 99284; J1200; J2930

== ENCOUNTER → 2021-09-04 15:03 | Outpatient (CLI) | payer OTHER, SELFPAY ==
[2021-07-06 16:09] VITALS: BMI 31.1
[2021-09-04 16:24] LABS: Add Manual Diff / Slide Review NO; Basophils Absolute Auto 0 /uL (0-100); Basophils Percent Auto 0.5 % (0-2); Eosinophils Absolute Auto 300 /uL (0-450); Eosinophils Percent Auto 5.8 % (2-4); Hemoglobin 12.5 g/dL (13.5-17.5); Lymphocytes Absolute Auto 1300 /uL (1100-4500); Lymphocytes Percent Auto 23.5 % (25-40); Mean Corpuscular HGB Conc 33.7 % (30-36); Mean Corpuscular Hemoglobin 32.7 PG (26-34); Monocytes Absolute Auto 400 /uL (0-900); Monocytes Percent Auto 6.9 % (3-14); Neutrophils Absolute Auto 3400 /uL (1500-7000); Neutrophils Percent Auto 63.3 % (50-75); Platelet Count 223 X10^3/uL (150-400); Red Blood Cell Count 3.81 X10^6/uL (4.5-5.9); White Blood Cell Count 5.3 X10^3/uL (4.5-11.0)
[2021-09-04 17:36] LABS: Alanine Aminotransferase 24 IU/L (<50); Albumin 4.1 g/dL (3.5-5.0); Albumin Globulin Ratio 1.6 (1.0-2.8); Alkaline Phosphatase 47 U/L (38-126); Aspartate Aminotransferase 29 IU/L (17-59); BUN Creatinine Ratio 18.6 (6-22); Bilirubin Total 0.5 mg/dL (0.2-1.3); Blood Urea Nitrogen 19 mg/dL (9-20); Calcium 9.5 mg/dL (8.4-10.2); Carbon Dioxide 26 mmol/L (22-32); Chloride 105 mmol/L (98-107); Estimated Glomerular Filt Rate > 60.0 mL/min (>60); Globulin 2.6 g/dL (1.7-4.1); Glucose 147 mg/dL (80-110); HEMOLYSIS < 15 (0-50); Potassium 4.3 mmol/L (3.4-5.1); Sodium 141 mmol/L (137-145); Total Protein 6.7 g/dL (6.3-8.2)
== END ==
PROVIDERS: Family Provider Physician Assistant; PCP Physician Assistant; Referring Provider Dermatology; Visit Provider Dermatology
DX: Z79.899 Other long term (current) drug therapy (principal)
CPT/HCPCS: 36415; 80053; 85025

== ENCOUNTER → 2021-12-22 11:27 | Outpatient (CLI) | payer OTHER, SELFPAY ==
[2021-07-06 16:09] VITALS: BMI 31.1
[2021-12-22 15:28] LABS: Prostate Specific Antigen < 0.064 ng/mL (0.10-4.00)
== END ==
PROVIDERS: Family Provider Physician Assistant; PCP Physician Assistant; Referring Provider Specialist; Visit Provider Specialist
DX: R97.20 Elevated prostate specific antigen [PSA] (principal)
CPT/HCPCS: 36415; 84153

== ENCOUNTER → 2022-04-15 14:45 | Outpatient (CLI) | payer OTHER, SELFPAY ==
[2021-07-06 16:09] VITALS: BMI 31.1
[2022-04-15 16:19] LABS: Add Manual Diff / Slide Review NO; Basophils Absolute Auto 0 /uL (0-100); Basophils Percent Auto 0.9 % (0-2); Eosinophils Absolute Auto 300 /uL (0-450); Eosinophils Percent Auto 5.9 % (2-4); Hematocrit 36.1 % (41-53); Hemoglobin 12.4 g/dL (13.5-17.5); Lymphocytes Absolute Auto 1300 /uL (1100-4500); Lymphocytes Percent Auto 26.6 % (25-40); Mean Corpuscular HGB Conc 34.5 % (30-36); Mean Corpuscular Hemoglobin 33.6 PG (26-34); Mean Corpuscular Volume 97.3 fL (80-100); Monocytes Absolute Auto 300 /uL (0-900); Monocytes Percent Auto 5.8 % (3-14); Neutrophils Absolute Auto 2900 /uL (1500-7000); Neutrophils Percent Auto 60.8 % (50-75); Platelet Count 296 X10^3/uL (150-400); Red Blood Cell Count 3.71 X10^6/uL (4.5-5.9); Red Cell Distribution Width 14.2 % (11.6-14.8); White Blood Cell Count 4.8 X10^3/uL (4.5-11.0)
[2022-04-15 16:58] LABS: Alanine Aminotransferase 26 IU/L (<50); Albumin 4.5 g/dL (3.5-5.0); Albumin Globulin Ratio 1.5 (1.0-2.8); Alkaline Phosphatase 54 U/L (38-126); Aspartate Aminotransferase 34 IU/L (17-59); Bilirubin Total 0.5 mg/dL (0.2-1.3); Blood Urea Nitrogen 22 mg/dL (9-20); Calcium 9.1 mg/dL (8.4-10.2); Carbon Dioxide 27 mmol/L (22-32); Chloride 104 mmol/L (98-107); Cholesterol 108 mg/dL (140-199); Estimated Glomerular Filt Rate > 60 mL/min (>60); Globulin 3.1 g/dL (1.7-4.1); Glucose 144 mg/dL (80-110); HDL Cholesterol 37 mg/dL (40-60); HEMOLYSIS < 15 (0-50); LDL Cholesterol Calculated 43 mg/dL (<100); Sodium 139 mmol/L (137-145); Total Protein 7.6 g/dL (6.3-8.2); Triglycerides 139 mg/dL (35-150)
== END ==
PROVIDERS: Family Provider Physician Assistant; PCP Physician Assistant; Referring Provider Dermatology; Visit Provider Dermatology
DX: Z79.899 Other long term (current) drug therapy (principal)
CPT/HCPCS: 36415; 80053; 80061; 85025

== ENCOUNTER → 2022-05-05 14:07 | Outpatient (CLI) | payer OTHER, SELFPAY ==
[2021-07-06 16:09] VITALS: BMI 31.1
--- NOTE | 2022-05-05 | DI.RAD.S_ITS ---
PROCEDURE: XR HIP W PEL IF DONE LT 2V INDICATIONS: CHRONIC LEFT HIP PAIN TECHNIQUE: < 2 > views of the hip were acquired. COMPARISON: None. FINDINGS: Bones: No fractures or dislocations. No suspicious bony lesions. The visualized pelvic ring appears intact. Moderate bilateral hip osteoarthritic changes. Lumbosacral spondylosis. Soft tissues: No suspicious soft tissue calcifications or masses. IMPRESSION: Moderate degenerative changes of the bilateral hip joints and lumbosacral spine. Dictated by: Darius Green M.D. on 05/05/2022 at 18:55 Approved by: Darius Green M.D. on 05/05/2022 at 18:55
== END ==
PROVIDERS: Family Provider Physician Assistant; PCP Physician Assistant; Referring Provider Physician Assistant; Visit Provider Physician Assistant
DX: M25.552 Pain in left hip (principal); G89.29 Other chronic pain; M47.817 Spondylosis without myelopathy or radiculopathy, lumbosacral region
CPT/HCPCS: 73502

== ENCOUNTER 2022-06-09 10:23 | Emergency (ER) | payer MEDICARE, SELFPAY ==
[2021-07-06 16:09] VITALS: BMI 31.1
[2022-06-09] VITALS (11 sets, daily range): BP systolic 111–143; BP diastolic 58–66; PULSE 60–61; RESP 14–23; TEMP 36.6; O2SAT 94–98; BMI 30.9
--- NOTE | 2022-06-09 10:43 | DI.RAD.S_ITS ---
PROCEDURE: XR CHEST 1V INDICATIONS: chest pain TECHNIQUE: One view of the chest was acquired. COMPARISON: [facility], CR, XR CHEST 1V, 07/06/2021, 11:47. FINDINGS: Surgical changes and devices: Biventricular left-sided pacemaker Lungs and pleura: Lungs are clear. No pleural effusions or pneumothorax. Mediastinum: Mediastinal contours appear normal. Heart size is normal. Bones and chest wall: No suspicious bony lesions. Overlying soft tissues appear unremarkable. IMPRESSION: No acute cardiopulmonary findings Approved by: Aguila Carranza M.D. on 06/09/2022 at 11:13
--- NOTE | 2022-06-09 10:55 | DI.CT.S_ITS ---
PROCEDURE: CT HEAD/BRAIN WO CON INDICATIONS: dizzy,nausea TECHNIQUE: Noncontrast 5 mm thick angled axial sections acquired from the foramen magnum to the vertex, with coronal and sagittal reformats. For radiation dose reduction, the following was used: automated exposure control, adjustment of mA and/or kV according to patient size. COMPARISON: Located Within [facility], CT, CT HEAD/BRAIN WO CON, 05/07/2021, 10:06. FINDINGS: Image quality: Excellent. CSF spaces: Basal cisterns are patent. No extra-axial fluid collections. Ventricles are normal in size and shape. Brain: No midline shift. No intracranial masses or hemorrhage. Moreno-white matter interface is normal. Moderate cerebral and cerebellar volume loss with multifocal white matter chronic ischemic change noted. Atherosclerotic calcification noted associated with cavernous segments of both internal carotid arteries. Skull and face: Calvarium and visualized facial bones are intact, without suspicious lesions. Sinuses: Visualized sinuses and mastoids are clear. IMPRESSION: Atrophy and chronic ischemic change without acute hemorrhage or mass effect Approved by: Aguila Carranza M.D. on 06/09/2022 at 10:34
[2022-06-09 10:59] LABS: Add Manual Diff / Slide Review NO; Basophils Absolute Auto 0 /uL (0-100); Basophils Percent Auto 0.7 % (0-2); Eosinophils Absolute Auto 200 /uL (0-450); Eosinophils Percent Auto 4.1 % (2-4); Hematocrit 38.6 % (41-53); Hemoglobin 13.1 g/dL (13.5-17.5); Lymphocytes Absolute Auto 900 /uL (1100-4500); Lymphocytes Percent Auto 15.6 % (25-40); Mean Corpuscular Hemoglobin 32.7 PG (26-34); Mean Corpuscular Volume 96.3 fL (80-100); Monocytes Absolute Auto 400 /uL (0-900); Monocytes Percent Auto 7.2 % (3-14); Neutrophils Absolute Auto 4100 /uL (1500-7000); Neutrophils Percent Auto 72.4 % (50-75); Platelet Count 222 X10^3/uL (150-400); Red Blood Cell Count 4.01 X10^6/uL (4.5-5.9); Red Cell Distribution Width 14.3 % (11.6-14.8); White Blood Cell Count 5.7 X10^3/uL (4.5-11.0)
[2022-06-09 11:09] LABS: PTT Partial Thromboplastin Tim 29 SECONDS (26-36)
[2022-06-09 11:11] LABS: Alanine Aminotransferase 25 IU/L (<50); Albumin 4.1 g/dL (3.5-5.0); Albumin Globulin Ratio 1.3 (1.0-2.8); Alkaline Phosphatase 53 U/L (38-126); Aspartate Aminotransferase 30 IU/L (17-59); BUN Creatinine Ratio 17.4 (6-22); Bilirubin Total 0.4 mg/dL (0.2-1.3); Blood Urea Nitrogen 16 mg/dL (9-20); Calcium 9.1 mg/dL (8.4-10.2); Carbon Dioxide 29 mmol/L (22-32); Chloride 105 mmol/L (98-107); Creatine Kinase 112 U/L (55-170); Estimated Glomerular Filt Rate > 60 mL/min (>60); Globulin 3.1 g/dL (1.7-4.1); Glucose 118 mg/dL (80-110); HEMOLYSIS < 15 (0-50); Lipase 58 U/L (23-300); Magnesium 2.1 mg/dL (1.6-2.3); Potassium 4.2 mmol/L (3.4-5.1); Sodium 139 mmol/L (137-145); Total Protein 7.2 g/dL (6.3-8.2)
[2022-06-09 11:22] LABS: Troponin I < 0.012 ng/mL (0.01-0.034)
[2022-06-09 11:26] LABS: CKMB % Relative Index 1.3 % (1.5-5.0); Creatine Kinase MB 1.46 ng/mL (<2.37)
--- NOTE | 2022-06-09 11:39 | ED.NEUROSD ---
HPI - Neuro Symptoms/Deficit General Chief Complaint: Neuro Symptoms/Deficit Stated Complaint: Disoriented, confused Time Seen by Provider: 06/09/22 11:39 Source: patient Mode of arrival: Ambulatory History of Present Illness HPI Narrative: Patient is a 81-year-old male history of coronary artery disease with stenting and pacemaker, hypertension hyperlipidemia BPH status post TURP self catheterization for urinary retention daily the prior pulmonary embolism presenting today with generalized weakness but he and lightheadedness. He says when he stands up he is a little lightheaded. He has to wait for a few seconds then he is able to walk. He denies any headache. No chest pain no palpitations no shortness of breath. He has not fallen. Generally just feeling fatigued. On Anticoagulants: Yes (plavix) Related Data Home Medications Medication Instructions Recorded Confirmed LOPERAMIDE - 2 mg PO PRN PRN Diarrhea ##0 02/07/11 06/09/22 (#IMODIUM) aspirin 81 mg chewable tablet 81 mg PO QDAY ##0 02/07/11 06/09/22 [FISH OIL ] 14,000 mg PO QDAY ##0 06/27/13 06/09/22 atorvastatin 10 mg tablet 10 mg PO DAILY 02/10/21 06/09/22 enalapril maleate 10 mg tablet 10 mg PO BEDTIME 02/10/21 06/09/22 iron 150 mg-vit C 60 mg-folate 1 1 tab PO DAILY 02/10/21 06/09/22 po-[id number]-[id number]-[id number] tablet methotrexate sodium 2.5 mg tablet 2.5 mg PO QWEEK 02/10/21 06/09/22 Previous Rx's Medication Instructions Recorded prednisone 20 mg tablet 40 mg PO DAILY #10 tabs 07/11/21 finasteride 5 mg tablet See Rx Instructions .Route 01/27/22 .COMPLEX #90 tabs Allergies Allergy/AdvReac Type Severity Reaction Status Date / Time shellfish derived Allergy Severe Rash Verified 06/09/22 10:36 erythromycin base Allergy Mild SKIN LESION Verified 06/09/22 10:36 oxycodone Allergy Mild NIGHT Verified 06/09/22 10:36 SWEATS Sulfa (Sulfonamide Allergy Mild SKIN LESION Verified 06/09/22 10:36 Antibiotics) OYSTER EXTRACT Allergy Mild GI UPSET Uncoded 06/09/22 09:59 Review of Systems Review of Systems Narrative: GENERAL: + fatigue HEENT: Denies sinus pain, ear pain, sore throat, difficulty swallowing, neck pain RESPIRATORY: Denies dyspnea, cough, wheezing, hemoptysis, sputum. CARDIOVASCULAR: Denies chest pain, palpitations, orthopnea, edema GASTROINTESTINAL: Denies nausea, vomiting, abdominal pain, diarrhea, constipation, melena. : + self catheterization MUSCULOSKELETAL: Denies weakness, joint pain, or bony pain SKIN: No rash, no erythema, no pruritus NEUROLOGIC: Denies weakness, dizziness, headache, numbness, change in speech, confusion PSYCHIATRIC: No concerning psychosocial issues. 12 point review of systems is negative except for those stated above and HPI Hematologic/Lymphatic On Anticoagulants: Yes (plavix) Patient History Medical History CAD (coronary artery disease) Flaccid bladder History of UTI Rotator cuff arthropathy Umbilical hernia with obstruction UTI (urinary tract infection) Surgical History History of coronary artery stent placement History of knee replacement Hx of vasectomy Family History Father Cancer Mother Congestive heart failure Social History marital status: number of children: 2 household members: spouse lives independently: Yes Smoking Status: Never smoker alcohol intake: former caffeine: Yes Smoking Status: Never smoker alcohol intake frequency: 0-2 drinks per day Substance Use Type: does not use Exam Initial Vital Signs Initial Vital Signs: Vital Signs Temperature 97.8 F 06/09/22 10:30 Pulse Rate 61 06/09/22 10:30 Respiratory Rate 15 06/09/22 10:30 Blood Pressure 143/66 H 06/09/22 10:30 Pulse Oximetry 97 06/09/22 10:30 Oxygen Delivery Method 06/09/22 10:30 GENERAL: Alert pleasant 81-year-old male and in no acute distress. HEENT: Head atraumatic,EOMI, pupils reactive, face symmetric, moist mucous membranes CARDIOVASCULAR: Regular rate and rhythm without murmurs, rubs or gallops. RESPIRATORY: Breath sounds equal bilaterally, no wheezes rales or rhonchi. ABDOMEN: Soft, nontender. Normoactive bowel sounds all 4 quadrants. No guarding or rebound. EXTREMITIES: Normal range of motion, no clubbing or edema. Neurovascularly intact NEUROLOGICAL: Alert and oriented x4.Normal gait and speech. Cranial nerves II through XII grossly intact. Good rbmbzk-va-wgzj, good yjpb-qu-elrg, strength equal bilaterally, no dysarthria or aphasia, sensation in tact to soft touch bilaterally, no visual changes, no facial droop SKIN: Warm, dry, no laceration, no petechiae, no rashes or lesions. Scores NIH Stroke Scale Level of Conciousness: Alert, keenly responsive Ask month/age: Answers both questions correctly. Open/close eyes, close hand: Performs both tasks correctly Best gaze horizontal: Normal Visual jaimes: No visual loss Facial palsy: Normal symetrical movement Left arm drift: No drift for full 10 sec Right arm drift: No drift for full 10 sec Left leg drift: No drift for full 5 sec Right leg drift: No drift for full 5 sec Limb ataxia: Absent Sensory on face/arms/legs: Normal, no sensory loss Best language: No aphasia, normal Dysarthria: Normal Extinction or inattention: No abnormality Total NIH Stroke scale score: 0 Course Orders Ordered: ED Orders 06/09/22 10:43 XR chest 1V Stat EKG-12 Lead Stat 06/09/22 10:52 Complete Blood Count AUTO DIFF Stat Comprehensive Metabolic Panel Stat Lactate (Lactic Acid) Stat Lipase Stat Magnesium Stat Partial Thromboplastin Time Stat Prothrombin Time INR Stat Troponin & CK Cardiac Panel Stat 06/09/22 10:55 CT head/brain wo con Stat 06/09/22 11:24 COVID19 -Nasal RAPID/Pre-Proc Stat 06/09/22 11:54 Procalcitonin Stat 06/09/22 12:42 UA Complete [Urinalysis and Microscopic] Stat Vital Signs Vital signs: Vital Signs - 8 hr 06/09/22 11:19 06/09/22 11:19 06/09/22 11:30 Pulse Rate 60 Respiratory Rate Blood Pressure 116/59 L 112/63 Pulse Oximetry 96 06/09/22 11:30 06/09/22 12:00 06/09/22 12:00 Pulse Rate 60 60 Respiratory Rate 14 17 Blood Pressure 117/61 Pulse Oximetry 95 94 06/09/22 12:44 06/09/22 12:45 06/09/22 12:45 Pulse Rate 60 60 Respiratory Rate 18 21 Blood Pressure 120/59 L Pulse Oximetry 98 97 06/09/22 13:00 06/09/22 13:00 06/09/22 13:30 Pulse Rate 60 60 Respiratory Rate 14 22 Blood Pressure 111/58 L Pulse Oximetry 95 96 MDM - Neuro Symptoms/Deficit Lab Data Result diagrams: 06/09/22 10:52 06/09/22 10:52 Labs: Lab Results 06/09/22 06/09/22 06/09/22 Range/Units 10:52 10:52 10:52 WBC 5.7 (4.5-11.0) X10^3/uL RBC 4.01 L (4.5-5.9) X10^6/uL Hgb 13.1 L (13.5-17.5) g/dL Hct 38.6 L (41-53) % MCV 96.3 (80-100) fL MCH 32.7 (26-34) PG MCHC 34.0 (30-36) % RDW 14.3 (11.6-14.8) % Plt Count 222 (150-400) X10^3/uL Neut % (Auto) 72.4 (50-75) % Lymph % (Auto) 15.6 L (25-40) % [place] % (Auto) 7.2 (3-14) % Eos % (Auto) 4.1 H (2-4) % Baso % (Auto) 0.7 (0-2) % Neut # (Auto) 4100 (7282-4916) /uL Lymph # (Auto) 900 L (6632-0673) /uL [place] # (Auto) 400 (0-900) /uL Eos # (Auto) 200 (0-450) /uL Baso # (Auto) 0 (0-100) /uL PT 11.0 (10.1-12.7) SECONDS INR 1.0 (0.9-1.3) APTT 29 (26-36) SECONDS Sodium 139 (137-145) mmol/L Potassium 4.2 (3.4-5.1) mmol/L Chloride 105 (98-107) mmol/L Carbon Dioxide 29 (22-32) mmol/L BUN 16 (9-20) mg/dL Creatinine 0.92 (0.66-1.25) mg/dL Estimated GFR > 60 (>60) mL/min BUN/Creatinine Ratio 17.4 (6-22) Glucose 118 H (80-110) mg/dL Lactate (0.7-2.1) mmol/L Calcium 9.1 (8.4-10.2) mg/dL Magnesium 2.1 (1.6-2.3) mg/dL Total Bilirubin 0.4 (0.2-1.3) mg/dL AST 30 (17-59) IU/L ALT 25 (<50) IU/L Alkaline Phosphatase 53 (38-126) U/L Total Creatine Kinase 112 (55-170) U/L CK-MB (CK-2) 1.46 (<2.37) ng/mL CK-MB (CK-2) Rel Index 1.3 L (1.5-5.0) % Troponin I < 0.012 (0.01-0.034) ng/mL Total Protein 7.2 (6.3-8.2) g/dL Albumin 4.1 (3.5-5.0) g/dL Globulin 3.1 (1.7-4.1) g/dL Albumin/Globulin Ratio 1.3 (1.0-2.8) Lipase 58 (23-300) U/L Procalcitonin (<0.5) ng/mL Urine Color Urine Appearance Urine pH (4.5-8.0) Ur Specific [place] (1.000-1.035) Urine Protein (Negative) Urine Glucose (UA) (Negative) g/dL Urine Ketones (NEGATIVE) Urine Occult Blood (Negative) Urine Nitrate (Negative) Urine Bilirubin (NEGATIVE) Urine Urobilinogen (0.2) E.U./dL Ur Leukocyte Esterase (NEGATIVE) Urine RBC (0-5/HPF) Urine WBC (0-5/HPF) Urine Bacteria (None) Ur Culture Indicated? Micro UA Comment SARS-CoV-2 (PCR) (Negative) 06/09/22 06/09/22 06/09/22 Range/Units 10:52 11:24 11:54 WBC (4.5-11.0) X10^3/uL RBC (4.5-5.9) X10^6/uL Hgb (13.5-17.5) g/dL Hct (41-53) % MCV (80-100) fL MCH (26-34) PG MCHC (30-36) % RDW (11.6-14.8) % Plt Count (150-400) X10^3/uL Neut % (Auto) (50-75) % Lymph % (Auto) (25-40) % [place] % (Auto) (3-14) % Eos % (Auto) (2-4) % Baso % (Auto) (0-2) % Neut # (Auto) (3727-1891) /uL Lymph # (Auto) (3111-1769) /uL [place] # (Auto) (0-900) /uL Eos # (Auto) (0-450) /uL Baso # (Auto) (0-100) /uL PT (10.1-12.7) SECONDS INR (0.9-1.3) APTT (26-36) SECONDS Sodium (137-145) mmol/L Potassium (3.4-5.1) mmol/L Chloride (98-107) mmol/L Carbon Dioxide (22-32) mmol/L BUN (9-20) mg/dL Creatinine (0.66-1.25) mg/dL Estimated GFR (>60) mL/min BUN/Creatinine Ratio (6-22) Glucose (80-110) mg/dL Lactate 1.0 (0.7-2.1) mmol/L Calcium (8.4-10.2) mg/dL Magnesium (1.6-2.3) mg/dL Total Bilirubin (0.2-1.3) mg/dL AST (17-59) IU/L ALT (<50) IU/L Alkaline Phosphatase (38-126) U/L Total Creatine Kinase (55-170) U/L CK-MB (CK-2) (<2.37) ng/mL CK-MB (CK-2) Rel Index (1.5-5.0) % Troponin I (0.01-0.034) ng/mL Total Protein (6.3-8.2) g/dL Albumin (3.5-5.0) g/dL Globulin (1.7-4.1) g/dL Albumin/Globulin Ratio (1.0-2.8) Lipase (23-300) U/L Procalcitonin 0.03 (<0.5) ng/mL Urine Color Urine Appearance Urine pH (4.5-8.0) Ur Specific [place] (1.000-1.035) Urine Protein (Negative) Urine Glucose (UA) (Negative) g/dL Urine Ketones (NEGATIVE) Urine Occult Blood (Negative) Urine Nitrate (Negative) Urine Bilirubin (NEGATIVE) Urine Urobilinogen (0.2) E.U./dL Ur Leukocyte Esterase (NEGATIVE) Urine RBC (0-5/HPF) Urine WBC (0-5/HPF) Urine Bacteria (None) Ur Culture Indicated? Micro UA Comment SARS-CoV-2 (PCR) Negative (Negative) 06/09/22 Range/Units 12:42 WBC (4.5-11.0) X10^3/uL RBC (4.5-5.9) X10^6/uL Hgb (13.5-17.5) g/dL Hct (41-53) % MCV (80-100) fL MCH (26-34) PG MCHC (30-36) % RDW (11.6-14.8) % Plt Count (150-400) X10^3/uL Neut % (Auto) (50-75) % Lymph % (Auto) (25-40) % [place] % (Auto) (3-14) % Eos % (Auto) (2-4) % Baso % (Auto) (0-2) % Neut # (Auto) (9460-6694) /uL Lymph # (Auto) (9886-1023) /uL [place] # (Auto) (0-900) /uL Eos # (Auto) (0-450) /uL Baso # (Auto) (0-100) /uL PT (10.1-12.7) SECONDS INR (0.9-1.3) APTT (26-36) SECONDS Sodium (137-145) mmol/L Potassium (3.4-5.1) mmol/L Chloride (98-107) mmol/L Carbon Dioxide (22-32) mmol/L BUN (9-20) mg/dL Creatinine (0.66-1.25) mg/dL Estimated GFR (>60) mL/min BUN/Creatinine Ratio (6-22) Glucose (80-110) mg/dL Lactate (0.7-2.1) mmol/L Calcium (8.4-10.2) mg/dL Magnesium (1.6-2.3) mg/dL Total Bilirubin (0.2-1.3) mg/dL AST (17-59) IU/L ALT (<50) IU/L Alkaline Phosphatase (38-126) U/L Total Creatine Kinase (55-170) U/L CK-MB (CK-2) (<2.37) ng/mL CK-MB (CK-2) Rel Index (1.5-5.0) % Troponin I (0.01-0.034) ng/mL Total Protein (6.3-8.2) g/dL Albumin (3.5-5.0) g/dL Globulin (1.7-4.1) g/dL Albumin/Globulin Ratio (1.0-2.8) Lipase (23-300) U/L Procalcitonin (<0.5) ng/mL Urine Color Yellow Urine Appearance Clear Urine pH 6.5 (4.5-8.0) Ur Specific [place] <=1.005 (1.000-1.035) Urine Protein Negative (Negative) Urine Glucose (UA) Negative (Negative) g/dL Urine Ketones Negative (NEGATIVE) Urine Occult Blood Negative (Negative) Urine Nitrate Negative (Negative) Urine Bilirubin Negative (NEGATIVE) Urine Urobilinogen 0.2 (0.2) E.U./dL Ur Leukocyte Esterase Negative (NEGATIVE) Urine RBC None seen (0-5/HPF) Urine WBC None seen (0-5/HPF) Urine Bacteria None seen (None) Ur Culture Indicated? Cult not indicated Micro UA Comment Microscopic normal SARS-CoV-2 (PCR) (Negative) Imaging Data Chest x-ray: Radiologist's Impression: Signed Patient: Hilario Hines MR#: [id number] : 1940 Acct:[id number] Age/Sex: 81 / M Date of Service: 06/09/22 Loc: ED Accession Number: [id number] ?? Procedure: XR chest 1V Ordering Provider: Candie Betancourt D.O. PROCEDURE:? XR CHEST 1V ? INDICATIONS:? chest pain ? TECHNIQUE:? One view of the chest was acquired.? ? COMPARISON:? [facility], , XR CHEST 1V, 07/06/2021, 11:47. ? FINDINGS:? ? Surgical changes and devices:? Biventricular left-sided pacemaker ? Lungs and pleura:? Lungs are clear.? No pleural effusions or pneumothorax.? ? Mediastinum:? Mediastinal contours appear normal.? Heart size is normal.? ? Bones and chest wall:? No suspicious bony lesions.? Overlying soft tissues appear unremarkable.? ? IMPRESSION:? ? No acute cardiopulmonary findings ? ? ? Approved by: Aguila Carranza M.D. on 06/09/2022 at 11:13? CT scan - head: Radiologist's Impression: atient: Hilario Hines MR#: [id number] : 1940 Acct:[id number] Age/Sex: 81 / M Date of Service: 06/09/22 Loc: ED Accession Number: [id number] ?? Procedure: CT head/brain wo con Ordering Provider: Candie Betancourt D.O. PROCEDURE:? CT HEAD/BRAIN WO CON ? INDICATIONS:? dizzy,nausea ? TECHNIQUE:? Noncontrast 5 mm thick angled axial sections acquired from the foramen magnum to the vertex, with coronal and sagittal reformats.? For radiation dose reduction, the following was used:? automated exposure control, adjustment of mA and/or kV according to patient size.? ? COMPARISON:? [facility], CT, CT HEAD/BRAIN WO CON, 05/07/2021, 10:06. ? FINDINGS:? Image quality:? Excellent.? ? CSF spaces:? Basal cisterns are patent.? No extra-axial fluid collections.? Ventricles are normal in size and shape.? ? Brain:? No midline shift.? No intracranial masses or hemorrhage.? Moreno-white matter interface is normal.? Moderate cerebral and cerebellar volume loss with multifocal white matter chronic ischemic change noted.? Atherosclerotic calcification noted associated with cavernous segments of both internal carotid arteries. ? Skull and face:? Calvarium and visualized facial bones are intact, without suspicious lesions.? ? Sinuses:? Visualized sinuses and mastoids are clear.? ? IMPRESSION:? Atrophy and chronic ischemic change without acute hemorrhage or mass effect ? ? ? Approved by: Aguila Carranza M.D. on 06/09/2022 at 10:34? ECG Data Interpretation: Paced rhythm rate 63 [place] interval 138 QRS [address] changes MDM Narrative Medical decision making narrative: Patient has generalized fatigue but no cause of some. He does not have a UTI he is not septic he does not have COVID. He is neurologically intact. Vitals are stable. At this time I do not have a reason to explain his symptoms but is stable to go home Discharge Plan Departure Patient Disposition: Home Clinical Impression: Fatigue Instructions: DI for Fatigue Activity Restrictions/Additional Instructions: *You have been diagnosed with fatigue *What to do: At this time it does not appear that you have an infection, continue to rest and hydrate *Continue to take medications as directed *Follow up with your primary care provider in 2-3 days or call [phone] *Return to ER if you should have falling persistent dizziness fever or any new, worsening or concerning symptoms Prescriptions: No Action aspirin 81 MG tablet,chewable 81 mg PO QDAY Qty: 0 LOPERAMIDE - (#IMODIUM) 2 mg PO PRN PRN (Reason: Diarrhea) Qty: 0 [FISH OIL ] tablet 14,000 mg PO QDAY Qty: 0 prednisone 20 mg tablet 40 mg PO DAILY Qty: 10 0RF atorvastatin 10 mg tablet 10 mg PO DAILY enalapril maleate 10 mg tablet 10 mg PO BEDTIME methotrexate sodium 2.5 mg tablet 2.5 mg PO QWEEK Rx Instructions: pt normally takes it on Mondays at 2100 iron [id number]-J-[id number]-Lp-[id number]-xga 150 mg iron- 60 mg-1 mg tablet 1 tab PO DAILY finasteride 5 mg tablet See Rx Instructions .ROUTE .COMPLEX Qty: 90 2RF Dose Instruction: TAKE 1 TABLET BY MOUTH DAILY Rx Instructions: TAKE 1 TABLET BY MOUTH DAILY Referrals: Monika Márquez PA-C [Primary Care Provider] - Visit Report Forms: Patient Portal/API
--- NOTE | 2022-06-09 11:41 | PC.NURSE ---
Pt reports he woke up yesterday and felt off. Had some dizziness and trouble focusing. Also had some nausea and sweating. Went to walk in today and was sent here. Denies shortness of breath, chest pain or trouble speaking. Has pacemaker that was placed 2 months ago.
[2022-06-09 11:56] LABS: COVID19 -Nasal RAPID Negative (Negative)
[2022-06-09 12:19] LABS: Procalcitonin 0.03 ng/mL (<0.5)
[2022-06-09 12:50] LABS: Appearance Urine UA CLEAR; Bilirubin Urine UA NEGATIVE (NEGATIVE); Color Urine UA YELLOW; Glucose Urine UA NEGATIVE (Negative); Ketones Urine UA NEGATIVE (NEGATIVE); Leukocyte Esterase Urine UA NEGATIVE (NEGATIVE); Nitrite Urine UA NEGATIVE (Negative); Occult Blood Urine UA NEGATIVE (Negative); Protein Urine UA NEGATIVE (Negative); Specific Gravity Urine UA <=1.005 (1.000-1.035); Urobilinogen Urine UA 0.2 E.U./dL (0.2); pH Urine UA 6.5 (4.5-8.0)
[2022-06-09 12:59] LABS: Bacteria Urine None Seen; Culture Indicated Urine Cult Not Indicated; RBC Urine None Seen (0-5/HPF); Urine Comments Microscopic Normal; WBC Urine None Seen (0-5/HPF)
== END 2022-06-09 13:47 | disposition home or self-care (01) ==
PROVIDERS: Emergency Provider Emergency Medicine; Family Provider Physician Assistant; PCP Physician Assistant
DX: R53.83 Other fatigue (principal); R42 Dizziness and giddiness; R07.9 Chest pain, unspecified; Z20.822 Contact with and (suspected) exposure to COVID-19
CPT/HCPCS: 70450; 71045; 80053; 81001; 82550; 82553; 83605; 83690; 83735; 84145; 84484; 85025; 85610; 85730; 87635; 93005; 99283; 99284; C9803

== ENCOUNTER 2022-06-28 07:30 | Outpatient (RCR) | payer MEDICARE, SELFPAY ==
[2021-07-06 16:09] VITALS: BMI 31.1
--- NOTE | 2022-06-17 22:00 | PT.OIE ---
Current Diagnoses Dizziness and giddiness (06/17/22) Past Medical History (Last Reviewed 06/09/22 @ 13:14 by Candie Betancourt DO) CAD (coronary artery disease) Flaccid bladder History of UTI Rotator cuff arthropathy Umbilical hernia with obstruction UTI (urinary tract infection) Past Surgical History (Last Reviewed 06/09/22 @ 13:14 by Candie Betancourt DO) History of coronary artery stent placement History of knee replacement Hx of vasectomy Visit Care Team Role Provider Type Monika Márquez PA-C Attending Provider Non-Staff Family Provider Primary Care Provider Referring Provider Specialty: Internal Medicine Address: [address] [place] [address] Email: [email or web address] Physical Therapy Initial Evaluation PT-OP-A Visit Information Start: 06/16/22 12:47 Freq: Status: Active Protocol: Document 06/17/22 08:15 AMB (Rec: 06/18/22 15:37 AMB [id number]) Out-Patient Physical Therapy Visit Information Visit Information Visit Type Initial Evaluation Visit Start Time 08:15 Visit Stop Time 09:00 Total Visit Minutes 45 Visit Number 1 Precautions Precautions Pacemaker PT-OP-B Current Condition Start: 06/16/22 12:47 Freq: Status: Active Protocol: Document 06/17/22 08:15 AMB (Rec: 06/18/22 15:37 AMB [id number]) Current Condition History of Current Condition Onset Date 7 days ago Current Complaints spinning dizziness History of Current Condition Started about 7 days ago when getting out of bed. Quick head movements and moving from sit to supine all increase dizziness. Does have a history of on and off dizziness, but usually only lasts a day and then is gone, this one has lasted longer. Going to [place] in a couple weeks. Denies any recent onset hearing changes, pressure, pain, numbness/ tingling, double vision. Denies nausea/vomiting. Feels off with balance, especially in the morning, denies lightheaded/woozy/passing out. Prior Functional Status Baseline Function- ADL's Independent Personal Factors Other Personal Factors That May Effect Pacemaker Therapy/Recovery PT-OP-C Subjective Start: 06/16/22 12:47 Freq: Status: Active Protocol: Document 06/17/22 08:15 AMB (Rec: 06/18/22 15:37 AMB [id number]) Patient Questionnaires Dizziness Handicap Inventory DHI Score 28 DHI Functional Impairment 20 to 39% Impaired (Score 20- 39) PT-OP-O Vestibular Start: 06/16/22 12:47 Freq: Status: Active Protocol: Document 06/17/22 08:15 AMB (Rec: 06/18/22 15:40 AMB [id number]) Vestibular Assessment Screening Tests Vestibular Artery Screen Negative Visual Testing Smooth Pursuits Horizontal WFL Smooth Pursuits Vertical WFL Saccades Horizontal WFL Saccades Vertical WFL Thrust Head Positive Right Positional Testing Erskine-Hallpike Positive Right Comments Vestibular Comments Pt was symptomatic with R DixHallpike, but no torsional nystagmus was able to be visualized, no sx with L DixHallpike PT-OP-Q Treatments Start: 06/16/22 12:47 Freq: Status: Active Protocol: Document 06/17/22 08:15 AMB (Rec: 06/18/22 15:45 AMB [id number]) Neuro Re-Education Treatment Vestibular Rehabilitation VOR Retraining Distance From Target arm length Speed slow Position standing WBOS PT-OP-T Assessment and Plan Start: 06/16/22 12:47 Freq: Status: Active Protocol: Document 06/17/22 08:15 AMB (Rec: 06/18/22 22:00 AMB [id number]) Physical Therapy Assessment Rehab Potential Rehabilitation Potential Good Evaluation Complexity Number of Personal Factors/Comorbidities 1-2 Number of Body Systems Impaired 1-2 Clinical Presentation at Evaluation Stable Impairments Impairments Vestibular Goals Two Impairment HEP Short Term Goal (STG) Hilario will be independent with a HEP to treat/prevent further dizziness. STG Duration 4 weeks One Impairment Dizziness Short Term Goal (STG) Hilario will perform all bed mobility without dizziness. STG Duration 4 weeks Assessment Summary Assessment Hilario attends physical therapy with signs and symptoms consistent with BPPV. Stephanie Hallpike negative on the left, possibly positive on the right (subtle symptoms with first repetition, none with second). Therefore treated with R Kacie, post maneuver precautions explained, given VOR for HEP, will reassess next visit if dizziness is improving. Physical Therapy Plan Frequency and Duration Frequency of Treatment 2x/Week Duration of Treatment 4 weeks Plan of Care Start Date 06/17/22 Plan of Care End Date 07/15/22 Therapeutic Interventions Therapeutic Interventions Balance Training,Canalithic Repositioning,Manual Therapy, Neuromuscular Re-education, Therapeutic Activities, Therapeutic Exercises, Vestibular Rehabilitation Next Visit Focus/Plan Next Note Type Treatment Note Next Visit Plan Reassess Sonya Eason
--- NOTE | 2022-06-17 22:01 | PT.OPPOC ---
Physical, Occupational & Speech Therapy At [facility] Current Diagnoses Dizziness and giddiness (06/17/22) Visit Care Team Role Provider Type Monika Márquez PA-C Attending Provider Non-Staff Family Provider Primary Care Provider Referring Provider Specialty: Internal Medicine Address: [address] [place] [address], [facility] Email: [email or web address] Plan Of Care PT-OP-T Assessment and Plan Start: 06/16/22 12:47 Freq: Status: Active Protocol: Document 06/17/22 08:15 AMB (Rec: 06/18/22 22:00 AMB [id number]) Physical Therapy Assessment Rehab Potential Rehabilitation Potential Good Evaluation Complexity Number of Personal Factors/Comorbidities 1-2 Number of Body Systems Impaired 1-2 Clinical Presentation at Evaluation Stable Impairments Impairments Vestibular Goals Two Impairment HEP Short Term Goal (STG) Hilario will be independent with a HEP to treat/prevent further dizziness. STG Duration 4 weeks One Impairment Dizziness Short Term Goal (STG) Hilario will perform all bed mobility without dizziness. STG Duration 4 weeks Assessment Summary Assessment Hilario attends physical therapy with signs and symptoms consistent with BPPV. Stehpanie Hallpike negative on the left, possibly positive on the right (subtle symptoms with first repetition, none with second). Therefore treated with R Kacie, post maneuver precautions explained, given VOR for HEP, will reassess next visit if dizziness is improving. Physical Therapy Plan Frequency and Duration Frequency of Treatment 2x/Week Duration of Treatment 4 weeks Plan of Care Start Date 06/17/22 Plan of Care End Date 07/15/22 Therapeutic Interventions Therapeutic Interventions Balance Training,Canalithic Repositioning,Manual Therapy, Neuromuscular Re-education, Therapeutic Activities, Therapeutic Exercises, Vestibular Rehabilitation Next Visit Focus/Plan Next Note Type Treatment Note Next Visit Plan Reassess R Stephanie Vijaypike Plan of Care Dates Plan of Care Start Date 06/17/22 Plan of Care End Date 07/15/22 Electronically Signed by: Betsy Cuevas, PT 06/18/22 2989 If you are in agreement with this Plan of Care, please return a signed and dated copy. I have reviewed this Plan of Care and certify that the skilled therapy services above are required to meet the patient?s needs. Physician Signature Date Printed Name and Credentials Clinical Instructor Signature Printed Name and Credentials
--- NOTE | 2022-06-22 10:38 | PT.OTN ---
Current Diagnoses Dizziness and giddiness (06/22/22) Physical Therapy Treatment Note PT-OP-A Visit Information Start: 06/16/22 12:47 Freq: Status: Active Protocol: Document 06/22/22 08:18 AMB (Rec: 06/22/22 08:49 AMB [id number]) Out-Patient Physical Therapy Visit Information Visit Information Visit Type Treatment Note Visit Start Time 08:15 Visit Stop Time 09:00 Total Visit Minutes 45 Visit Number 2 PT-OP-B Current Condition Start: 06/16/22 12:47 Freq: Status: Active Protocol: Document 06/17/22 08:15 AMB (Rec: 06/18/22 15:37 AMB [id number]) Current Condition History of Current Condition Onset Date 7 days ago Current Complaints spinning dizziness History of Current Condition Started about 7 days ago when getting out of bed. Quick head movements and moving from sit to supine all increase dizziness. Does have a history of on and off dizziness, but usually only lasts a day and then is gone, this one has lasted longer. Going to [place] in a couple weeks. Denies any recent onset hearing changes, pressure, pain, numbness/ tingling, double vision. Denies nausea/vomiting. Feels off with balance, especially in the morning, denies lightheaded/woozy/passing out. Prior Functional Status Baseline Function- ADL's Independent Personal Factors Other Personal Factors That May Effect Pacemaker Therapy/Recovery PT-OP-C Subjective Start: 06/16/22 12:47 Freq: Status: Active Protocol: Document 06/22/22 08:18 AMB (Rec: 06/22/22 08:49 AMB [id number]) OP-PT Subjective Patient Comments Patient Comments Dizzy with getting up out of bed, less intense. PT-OP-O Vestibular Start: 06/16/22 12:47 Freq: Status: Active Protocol: Document 06/17/22 08:15 AMB (Rec: 06/18/22 15:40 AMB [id number]) Vestibular Assessment Screening Tests Vestibular Artery Screen Negative Visual Testing Smooth Pursuits Horizontal WFL Smooth Pursuits Vertical WFL Saccades Horizontal WFL Saccades Vertical WFL Thrust Head Positive Right Positional Testing [place]-Hallpike Positive Right Comments Vestibular Comments Pt was symptomatic with R DixHallpike, but no torsional nystagmus was able to be visualized, no sx with L DixHallpike PT-OP-Q Treatments Start: 06/16/22 12:47 Freq: Status: Active Protocol: Document 06/22/22 08:15 AMB (Rec: 06/22/22 10:38 AMB [id number]) Canalithic Repositioning BPPV Treatment Kacie Affected Canal(s) R Reps 2 Comments Dizziness/nystagmus in first position, not really in second . PT-OP-T Assessment and Plan Start: 06/16/22 12:47 Freq: Status: Active Protocol: Document 06/22/22 08:18 AMB (Rec: 06/22/22 08:49 AMB [id number]) Physical Therapy Assessment Goals Two Impairment HEP Short Term Goal (STG) Hilario will be independent with a HEP to treat/prevent further dizziness. STG Duration 4 weeks One Impairment Dizziness Short Term Goal (STG) Hilario will perform all bed mobility without dizziness. STG Duration 4 weeks Assessment Summary Assessment Hilario did have nystagmus with R Stephanie Hallpike at this session , with both repetitions unfortunately. Will recheck all canals if nystagmus continues at next visit. Physical Therapy Plan Next Visit Focus/Plan Next Note Type Treatment Note Next Visit Plan Reassess R Stephanie Hallpike
--- NOTE | 2022-06-24 12:34 | PT.OTN ---
Current Diagnoses Dizziness and giddiness (06/24/22) Physical Therapy Treatment Note PT-OP-A Visit Information Start: 06/16/22 12:47 Freq: Status: Active Protocol: Document 06/24/22 07:32 AMB (Rec: 06/24/22 08:16 AMB [id number]) Out-Patient Physical Therapy Visit Information Visit Information Visit Type Treatment Note Visit Start Time 07:30 Visit Stop Time 08:15 Total Visit Minutes 45 Visit Number 3 PT-OP-B Current Condition Start: 06/16/22 12:47 Freq: Status: Active Protocol: Document 06/17/22 08:15 AMB (Rec: 06/18/22 15:37 AMB [id number]) Current Condition History of Current Condition Onset Date 7 days ago Current Complaints spinning dizziness History of Current Condition Started about 7 days ago when getting out of bed. Quick head movements and moving from sit to supine all increase dizziness. Does have a history of on and off dizziness, but usually only lasts a day and then is gone, this one has lasted longer. Going to [place] in a couple weeks. Denies any recent onset hearing changes, pressure, pain, numbness/ tingling, double vision. Denies nausea/vomiting. Feels off with balance, especially in the morning, denies lightheaded/woozy/passing out. Prior Functional Status Baseline Function- ADL's Independent Personal Factors Other Personal Factors That May Effect Pacemaker Therapy/Recovery PT-OP-C Subjective Start: 06/16/22 12:47 Freq: Status: Active Protocol: Document 06/24/22 07:32 AMB (Rec: 06/24/22 08:16 AMB [id number]) OP-PT Subjective Patient Comments Patient Comments a little better yesterday, but then worse when getting up in the morning yesterday. PT-OP-O Vestibular Start: 06/16/22 12:47 Freq: Status: Active Protocol: Document 06/17/22 08:15 AMB (Rec: 06/18/22 15:40 AMB [id number]) Vestibular Assessment Screening Tests Vestibular Artery Screen Negative Visual Testing Smooth Pursuits Horizontal WFL Smooth Pursuits Vertical WFL Saccades Horizontal WFL Saccades Vertical WFL Thrust Head Positive Right Positional Testing Stephanie-Hallpike Positive Right Comments Vestibular Comments Pt was symptomatic with R DixHallpike, but no torsional nystagmus was able to be visualized, no sx with L DixHallpike PT-OP-Q Treatments Start: 06/16/22 12:47 Freq: Status: Active Protocol: Document 06/24/22 07:32 AMB (Rec: 06/24/22 08:16 AMB [id number]) Canalithic Repositioning BPPV Treatment Kacie Affected Canal(s) L Reps 2 Comments Nystagmus in first position PT-OP-T Assessment and Plan Start: 06/16/22 12:47 Freq: Status: Active Protocol: Document 06/24/22 07:32 AMB (Rec: 06/24/22 08:16 AMB [id number]) Physical Therapy Assessment Goals Two Impairment HEP Short Term Goal (STG) Hilario will be independent with a HEP to treat/prevent further dizziness. STG Duration 4 weeks One Impairment Dizziness Short Term Goal (STG) Hilario will perform all bed mobility without dizziness. STG Duration 4 weeks Assessment Summary Assessment Hilario had nystagmus with L Stephanie Hallpike today. Possibly had B BPPV, as at previous treatment was more symptomatic with R Stephanie Hallpike, recheck all canals next visit. Physical Therapy Plan Next Visit Focus/Plan Next Note Type Treatment Note Next Visit Plan Reassess R/L Stephanie Hallpike
--- NOTE | 2022-06-28 08:12 | PT.OTN ---
Current Diagnoses Dizziness and giddiness (06/28/22) Physical Therapy Treatment Note PT-OP-A Visit Information Start: 06/16/22 12:47 Freq: Status: Active Protocol: Document 06/28/22 07:31 AMB (Rec: 06/28/22 08:12 AMB [id number]) Out-Patient Physical Therapy Visit Information Visit Information Visit Type Treatment Note Visit Start Time 07:30 Visit Stop Time 08:15 Total Visit Minutes 45 Visit Number 4 PT-OP-B Current Condition Start: 06/16/22 12:47 Freq: Status: Active Protocol: Document 06/17/22 08:15 AMB (Rec: 06/18/22 15:37 AMB [id number]) Current Condition History of Current Condition Onset Date 7 days ago Current Complaints spinning dizziness History of Current Condition Started about 7 days ago when getting out of bed. Quick head movements and moving from sit to supine all increase dizziness. Does have a history of on and off dizziness, but usually only lasts a day and then is gone, this one has lasted longer. Going to [place] in a couple weeks. Denies any recent onset hearing changes, pressure, pain, numbness/ tingling, double vision. Denies nausea/vomiting. Feels off with balance, especially in the morning, denies lightheaded/woozy/passing out. Prior Functional Status Baseline Function- ADL's Independent Personal Factors Other Personal Factors That May Effect Pacemaker Therapy/Recovery PT-OP-C Subjective Start: 06/16/22 12:47 Freq: Status: Active Protocol: Document 06/28/22 07:31 AMB (Rec: 06/28/22 08:12 AMB [id number]) OP-PT Subjective Patient Comments Patient Comments Pt reports he thinks he is getting better. PT-OP-O Vestibular Start: 06/16/22 12:47 Freq: Status: Active Protocol: Document 06/17/22 08:15 AMB (Rec: 06/18/22 15:40 AMB [id number]) Vestibular Assessment Screening Tests Vestibular Artery Screen Negative Visual Testing Smooth Pursuits Horizontal WFL Smooth Pursuits Vertical WFL Saccades Horizontal WFL Saccades Vertical WFL Thrust Head Positive Right Positional Testing [place]-Hallpike Positive Right Comments Vestibular Comments Pt was symptomatic with R DixHallpike, but no torsional nystagmus was able to be visualized, no sx with L DixHallpike PT-OP-Q Treatments Start: 06/16/22 12:47 Freq: Status: Active Protocol: Document 06/28/22 07:31 AMB (Rec: 06/28/22 08:12 AMB [id number]) Neuro Re-Education Treatment Other Activities 1 Details Recheck all semicircular canals Comments All negative, PT-OP-T Assessment and Plan Start: 06/16/22 12:47 Freq: Status: Active Protocol: Document 06/28/22 07:31 AMB (Rec: 06/28/22 08:12 AMB [id number]) Physical Therapy Assessment Goals Two Impairment HEP Short Term Goal (STG) Hilario will be independent with a HEP to treat/prevent further dizziness. STG Duration MET One Impairment Dizziness Short Term Goal (STG) Hilario will perform all bed mobility without dizziness. STG Duration MET Assessment Summary Assessment No nystagmus or dizziness with any sx. Physical Therapy Plan Hold Physical Therapy Reason For Hold pt going to [place] for 1 month , leaving chart open in case sx return, but did explain will d/c if we don't hear anything from him.
--- NOTE | 2022-08-04 15:49 | PT.OPDS ---
Current Diagnoses Dizziness and giddiness (06/28/22) Visit Care Team Role Provider Type Monika Márquez PA-C Attending Provider Physician Extrusion Bender Family Provider Primary Care Provider Referring Provider Specialty: Medical Address: [address] [place] [address], [facility] Email: [email or web address] Visit Number Visit Number 4 Discharge Summary PT-OP-B Current Condition Start: 06/16/22 12:47 Freq: Status: Active Protocol: Document 06/17/22 08:15 AMB (Rec: 06/18/22 15:37 AMB [id number]) Current Condition History of Current Condition Onset Date 7 days ago Current Complaints spinning dizziness History of Current Condition Started about 7 days ago when getting out of bed. Quick head movements and moving from sit to supine all increase dizziness. Does have a history of on and off dizziness, but usually only lasts a day and then is gone, this one has lasted longer. Going to [place] in a couple weeks. Denies any recent onset hearing changes, pressure, pain, numbness/ tingling, double vision. Denies nausea/vomiting. Feels off with balance, especially in the morning, denies lightheaded/woozy/passing out. Prior Functional Status Baseline Function- ADL's Independent Personal Factors Other Personal Factors That May Effect Pacemaker Therapy/Recovery PT-OP-C Subjective Start: 06/16/22 12:47 Freq: Status: Active Protocol: Document 06/28/22 07:31 AMB (Rec: 06/28/22 08:12 AMB [id number]) OP-PT Subjective Patient Comments Patient Comments Pt reports he thinks he is getting better. PT-OP-O Vestibular Start: 06/16/22 12:47 Freq: Status: Active Protocol: Document 06/17/22 08:15 AMB (Rec: 06/18/22 15:40 AMB [id number]) Vestibular Assessment Screening Tests Vestibular Artery Screen Negative Visual Testing Smooth Pursuits Horizontal WFL Smooth Pursuits Vertical WFL Saccades Horizontal WFL Saccades Vertical WFL Thrust Head Positive Right Positional Testing Stephanie-Hallpike Positive Right Comments Vestibular Comments Pt was symptomatic with R DixHallpike, but no torsional nystagmus was able to be visualized, no sx with L DixHallpike PT-OP-T Assessment and Plan Start: 06/16/22 12:47 Freq: Status: Active Protocol: Document 08/04/22 15:49 AMB (Rec: 08/04/22 15:49 AMB [id number]) Physical Therapy Assessment Assessment Summary Assessment No nystagmus or dizziness with any sx, at last visit, pt was put on hold for one month, has not contacted the clinic for re-eval, so therefore is discharged at this time. Physical Therapy Plan Discharge Physical Therapy Discharge Reasons No Longer Attending PT
== END 2022-08-09 12:04 | disposition home or self-care (01) ==
LOC: PHYS 07:30
PROVIDERS: Family Provider Physician Assistant; PCP Physician Assistant; Referring Provider Physician Assistant; Visit Provider Physician Assistant
DX: R42 Dizziness and giddiness (principal)
CPT/HCPCS: 95992; 97112; 97161

== ENCOUNTER → 2022-09-13 12:46 | Outpatient (CLI) | payer MEDICARE, SELFPAY ==
[2021-07-06 16:09] VITALS: BMI 31.1
[2022-09-13 14:22] LABS: Add Manual Diff / Slide Review NO; Basophils Absolute Auto 0 /uL (0-100); Basophils Percent Auto 0.5 % (0-2); Eosinophils Absolute Auto 300 /uL (0-450); Eosinophils Percent Auto 4.9 % (2-4); Hematocrit 39.7 % (41-53); Hemoglobin 13.3 g/dL (13.5-17.5); Lymphocytes Absolute Auto 1100 /uL (1100-4500); Lymphocytes Percent Auto 17.1 % (25-40); Mean Corpuscular HGB Conc 33.4 % (30-36); Mean Corpuscular Hemoglobin 32.4 PG (26-34); Monocytes Absolute Auto 500 /uL (0-900); Monocytes Percent Auto 8.1 % (3-14); Neutrophils Absolute Auto 4500 /uL (1500-7000); Neutrophils Percent Auto 69.4 % (50-75); Platelet Count 244 X10^3/uL (150-400); Red Blood Cell Count 4.09 X10^6/uL (4.5-5.9); Red Cell Distribution Width 15.8 % (11.6-14.8); White Blood Cell Count 6.4 X10^3/uL (4.5-11.0)
== END ==
PROVIDERS: Family Provider Physician Assistant; PCP Physician Assistant; Referring Provider Dermatology; Visit Provider Dermatology
DX: L40.0 Psoriasis vulgaris (principal)
CPT/HCPCS: 36415; 85025

== ENCOUNTER → 2022-12-10 15:20 | Outpatient (CLI) | payer MEDICARE, SELFPAY ==
[2021-07-06 16:09] VITALS: BMI 31.1
[2022-12-10 15:51] LABS: Add Manual Diff / Slide Review NO; Basophils Absolute Auto 0 /uL (0-100); Eosinophils Absolute Auto 300 /uL (0-450); Eosinophils Percent Auto 6.7 % (2-4); Hematocrit 39.2 % (41-53); Hemoglobin 13.1 g/dL (13.5-17.5); Lymphocytes Absolute Auto 1400 /uL (1100-4500); Lymphocytes Percent Auto 27.9 % (25-40); Mean Corpuscular HGB Conc 33.4 % (30-36); Mean Corpuscular Hemoglobin 32.1 PG (26-34); Monocytes Absolute Auto 500 /uL (0-900); Monocytes Percent Auto 8.9 % (3-14); Neutrophils Absolute Auto 2900 /uL (1500-7000); Neutrophils Percent Auto 55.5 % (50-75); Platelet Count 226 X10^3/uL (150-400); Red Blood Cell Count 4.09 X10^6/uL (4.5-5.9); Red Cell Distribution Width 14.8 % (11.6-14.8); White Blood Cell Count 5.1 X10^3/uL (4.5-11.0)
[2022-12-10 16:08] LABS: Alanine Aminotransferase 25 IU/L (<50); Albumin 4.2 g/dL (3.5-5.0); Albumin Globulin Ratio 1.4 (1.0-2.8); Alkaline Phosphatase 58 U/L (38-126); Aspartate Aminotransferase 31 IU/L (17-59); BUN Creatinine Ratio 19.4 (6-22); Bilirubin Total 0.5 mg/dL (0.2-1.3); Blood Urea Nitrogen 21 mg/dL (9-20); Carbon Dioxide 26 mmol/L (22-32); Chloride 108 mmol/L (98-107); Estimated Glomerular Filt Rate > 60 mL/min (>60); Glucose 125 mg/dL (80-110); HEMOLYSIS < 15 (0-50); Potassium 3.8 mmol/L (3.4-5.1); Sodium 140 mmol/L (137-145); Total Protein 7.2 g/dL (6.3-8.2)
== END ==
PROVIDERS: Family Provider Physician Assistant; PCP Physician Assistant; Referring Provider Dermatology; Visit Provider Dermatology
DX: L40.0 Psoriasis vulgaris (principal)
CPT/HCPCS: 36415; 80053; 85025

== ENCOUNTER → 2022-12-14 11:49 | Outpatient (CLI) | payer MEDICARE, SELFPAY ==
[2021-07-06 16:09] VITALS: BMI 31.1
[2022-12-14 13:40] LABS: Prostate Specific Antigen 0.081 ng/mL (0.10-4.00)
== END ==
PROVIDERS: Family Provider Physician Assistant; PCP Physician Assistant; Referring Provider Specialist; Visit Provider Specialist
DX: N40.0 Benign prostatic hyperplasia without lower urinary tract symptoms (principal)
CPT/HCPCS: 36415; 84153

== ENCOUNTER 2023-01-14 12:13 | Emergency (ER) | payer MEDICARE, SELFPAY ==
[2021-07-06 16:09] VITALS: BMI 31.1
[2023-01-14] VITALS (12 sets, daily range): BP systolic 131–135; BP diastolic 62–87; PULSE 59–72; RESP 11–27; TEMP 36.3; O2SAT 96–98; BMI 31.8
[2023-01-14 13:02] LABS: Add Manual Diff / Slide Review NO; Basophils Absolute Auto 0 /uL (0-100); Basophils Percent Auto 0.8 % (0-2); Eosinophils Absolute Auto 400 /uL (0-450); Eosinophils Percent Auto 7.6 % (2-4); Hematocrit 39.1 % (41-53); Hemoglobin 13.4 g/dL (13.5-17.5); Lymphocytes Absolute Auto 1500 /uL (1100-4500); Lymphocytes Percent Auto 27.4 % (25-40); Mean Corpuscular HGB Conc 34.3 % (30-36); Mean Corpuscular Hemoglobin 32.6 PG (26-34); Mean Corpuscular Volume 95.1 fL (80-100); Monocytes Absolute Auto 500 /uL (0-900); Neutrophils Absolute Auto 3000 /uL (1500-7000); Neutrophils Percent Auto 55.2 % (50-75); Platelet Count 249 X10^3/uL (150-400); Red Blood Cell Count 4.11 X10^6/uL (4.5-5.9); Red Cell Distribution Width 15.2 % (11.6-14.8); White Blood Cell Count 5.5 X10^3/uL (4.5-11.0)
[2023-01-14 13:06] LABS: Prothrombin Time 11.7 SECONDS (10.1-12.7)
[2023-01-14 13:07] LABS: Alanine Aminotransferase 30 IU/L (<50); Albumin 4.3 g/dL (3.5-5.0); Albumin Globulin Ratio 1.4 (1.0-2.8); Alkaline Phosphatase 52 U/L (38-126); Aspartate Aminotransferase 33 IU/L (17-59); BUN Creatinine Ratio 18.4 (6-22); Bilirubin Total 0.6 mg/dL (0.2-1.3); Blood Urea Nitrogen 18 mg/dL (9-20); Calcium 9.1 mg/dL (8.4-10.2); Carbon Dioxide 25 mmol/L (22-32); Chloride 103 mmol/L (98-107); Estimated Glomerular Filt Rate > 60 mL/min (>60); Globulin 3.1 g/dL (1.7-4.1); Glucose 107 mg/dL (80-110); HEMOLYSIS < 15 (0-50); Potassium 4.5 mmol/L (3.4-5.1); Sodium 137 mmol/L (137-145); Total Protein 7.4 g/dL (6.3-8.2)
[2023-01-14 13:09] LABS: PTT Partial Thromboplastin Tim 32 SECONDS (26-36)
--- NOTE | 2023-01-14 14:30 | ED_ITS ---
HPI - GI Bleed <Darrell Pascual PA-C - Last Filed: 01/14/23 18:17> General Chief complaint: GI Bleed Stated complaint: rectal bleeding phys ref Time Seen by Provider: 01/14/23 14:23 Source: patient Mode of arrival: Ambulatory History of Present Illness HPI Narrative: This is a 82-year-old male presents to the emergency department due to rectal bleeding last couple of days. He states that initially he noticed a bright red blood after wiping onset 3 days ago. As of this morning he noticed a ?darker purple? color to his stool. Does not report any significant pain around the rectum or in the abdomen. Denies any nausea, vomiting, fevers, or any other systemic symptoms. Patient states last colonoscopy was done last year and was told that ?everything was normal?. Patient's reports taking Plavix due to having a pacemaker. Related Data Home Medications Medication Instructions Recorded Confirmed LOPERAMIDE - 2 mg PO PRN PRN Diarrhea ##0 02/07/11 12/16/22 (#IMODIUM) aspirin 81 mg chewable tablet 81 mg PO QDAY ##0 02/07/11 12/16/22 [FISH OIL ] 14,000 mg PO QDAY ##0 06/27/13 12/16/22 atorvastatin 10 mg tablet 10 mg PO DAILY 02/10/21 12/16/22 enalapril maleate 10 mg tablet 10 mg PO BEDTIME 02/10/21 12/16/22 iron 150 mg-vit C 60 mg-folate 1 1 tab PO DAILY 02/10/21 12/16/22 [id number] tablet methotrexate sodium 2.5 mg tablet 2.5 mg PO QWEEK 02/10/21 12/16/22 Previous Rx's Medication Instructions Recorded prednisone 20 mg tablet 40 mg PO DAILY #10 tabs 07/11/21 finasteride 5 mg tablet See Rx Instructions .Route 07/01/22 .COMPLEX #90 tabs Allergies Allergy/AdvReac Type Severity Reaction Status Date / Time shellfish derived Allergy Severe Rash Verified 01/14/23 12:31 erythromycin base Allergy Mild SKIN LESION Verified 01/14/23 12:31 oxycodone Allergy Mild NIGHT Verified 01/14/23 12:31 SWEATS Sulfa (Sulfonamide Allergy Mild SKIN LESION Verified 01/14/23 12:31 Antibiotics) OYSTER EXTRACT Allergy Mild GI UPSET Uncoded 12/16/22 15:28 Review of Systems <Darrell Pascual PA-C - Last Filed: 01/14/23 18:17> Review of Systems Narrative: GENERAL: Denies chills, fatigue, malaise, fever, sweats. HEENT: Denies sinus pain, ear pain, sore throat, difficulty swallowing, dizzines s. RESPIRATORY: Denies dyspnea, cough, wheezing, hemoptysis, sputum. CARDIOVASCULAR: Denies chest pain, palpitations, orthopnea, edema, GASTROINTESTINAL: Reports rectal bleeding, Denies nausea, vomiting, abdominal pain, diarrhea, constipation, . : Denies dysuria, frequency, incontinence, hematuria, urinary retention. MUSCULOSKELETAL: denies weakness, joint pain, or bony pain SKIN: Denies rash, skin lesions, or other NEUROLOGIC: Denies weakness, headache, numbness, change in speech, confusion, seizures, incoordination. PSYCHIATRIC: No concerning psychosocial issues. 12 point review of systems is negative except for those stated above Patient History <Darrell Pascual PA-C - Last Filed: 01/14/23 18:17> Medical History (Updated 01/14/23 @ 18:14 by Darrell Pascual PA-C) CAD (coronary artery disease) Flaccid bladder History of UTI Rotator cuff arthropathy Umbilical hernia with obstruction Urinary retention UTI (urinary tract infection) Surgical History History of coronary artery stent placement History of knee replacement Hx of vasectomy Family History Father Cancer Mother Congestive heart failure Social History marital status: number of children: 2 household members: spouse lives independently: Yes Smoking Status: Never smoker alcohol intake: former caffeine: Yes Smoking Status: Never smoker alcohol intake frequency: holidays/special occasions only Substance Use Type: does not use Exam <Darrell Pascual PA-C - Last Filed: 01/14/23 18:17> Narrative Exam Narrative: GENERAL: Well-developed patient, in mild distress. HEAD: Atraumatic. Normocephalic. EYES: Pupils equal round and reactive. Extraocular motions intact. No scleral icterus. No injection or drainage. ENT: Nose without bleeding, purulent drainage. Throat without erythema, tonsillar hypertrophy or exudate. Airway patent. NECK: Trachea midline. Non tender CARDIOVASCULAR: Regular rate and rhythm without murmurs, gallops, or rubs. RESPIRATORY: Clear to auscultation. Breath sounds equal bilaterally. No wheezes, rales, or rhonchi. GASTROINTESTINAL: Abdomen soft, non-tender, nondistended. On rectal exam there was no evidence of any kind of external hemorrhoids or external bleeding. Guaiac exam positive. EXTREMITIES: No edema or joint tenderness. BACK: Nontender without deformity or crepitance. No flank tenderness. NEURO: AOx3. SKIN: No rash or erythema of visible areas Initial Vital Signs Initial Vital Signs: Vital Signs Temperature 97.3 F L 01/14/23 12:31 Pulse Rate 65 01/14/23 12:31 Respiratory Rate 15 01/14/23 12:31 Blood Pressure 131/62 01/14/23 12:31 Pulse Oximetry 96 01/14/23 12:31 Oxygen Delivery Method Room Air 01/14/23 12:31 <Candie Betancourt DO - Last Filed: 01/15/23 07:09> Initial Vital Signs Initial Vital Signs: Vital Signs Temperature 97.3 F L 01/14/23 12:31 Pulse Rate 65 01/14/23 12:31 Respiratory Rate 15 01/14/23 12:31 Blood Pressure 131/62 01/14/23 12:31 Pulse Oximetry 96 01/14/23 12:31 Oxygen Delivery Method Room Air 01/14/23 12:31 Course <Darrell Pascual PA-C - Last Filed: 01/14/23 18:17> Orders Ordered: Discontinued Medications Ondansetron HCl (Ondansetron 4 Mg/2 Ml Inj) 4 mg IV NOW PRN PRN Reason: Nausea And Vomiting Pantoprazole Sodium (Pantoprazole 40 Mg Vial) 80 mg IV NOW ONE Stop: 01/14/23 12:35 Last Admin: 01/14/23 15:59 Dose: 80 mg Documented By: SEAN Vital Signs Vital signs: Vital Signs - 8 hr 01/14/23 12:31 01/14/23 13:41 01/14/23 13:42 Temperature 97.3 F L Pulse Rate 65 59 L 66 Respiratory Rate 15 11 L 21 Blood Pressure 131/62 Pulse Oximetry 96 98 97 Oxygen Delivery Method Room Air 01/14/23 13:42 01/14/23 14:00 01/14/23 14:00 Temperature Pulse Rate 60 Respiratory Rate 18 Blood Pressure 135/87 134/77 Pulse Oximetry 96 Oxygen Delivery Method Room Air 01/14/23 14:30 01/14/23 14:30 Temperature Pulse Rate 62 Respiratory Rate 16 Blood Pressure 131/73 Pulse Oximetry 97 Oxygen Delivery Method Room Air <Candie Betancourt DO - Last Filed: 01/15/23 07:09> Orders Ordered: Discontinued Medications Ondansetron HCl (Ondansetron 4 Mg/2 Ml Inj) 4 mg IV NOW PRN PRN Reason: Nausea And Vomiting Pantoprazole Sodium (Pantoprazole 40 Mg Vial) 80 mg IV NOW ONE Stop: 01/14/23 12:35 Last Admin: 01/14/23 15:59 Dose: 80 mg Documented By: SAEN Vital Signs Vital signs: Vital Signs - 8 hr 01/14/23 12:31 01/14/23 13:41 01/14/23 13:42 Temperature 97.3 F L Pulse Rate 65 59 L 66 Respiratory Rate 15 11 L 21 Blood Pressure 131/62 Pulse Oximetry 96 98 97 Oxygen Delivery Method Room Air 01/14/23 13:42 01/14/23 14:00 01/14/23 14:00 Temperature Pulse Rate 60 Respiratory Rate 18 Blood Pressure 135/87 134/77 Pulse Oximetry 96 Oxygen Delivery Method Room Air 01/14/23 14:30 01/14/23 14:30 Temperature Pulse Rate 62 Respiratory Rate 16 Blood Pressure 131/73 Pulse Oximetry 97 Oxygen Delivery Method Room Air MDM - GI Bleed <Darrell Pascual PA-C - Last Filed: 01/14/23 18:17> Lab Data 01/14/23 15:16 01/14/23 12:40 Labs: Lab Results 01/14/23 01/14/23 01/14/23 Range/Units 12:40 12:40 12:40 WBC 5.5 (4.5-11.0) X10^3/uL RBC 4.11 L (4.5-5.9) X10^6/uL Hgb 13.4 L (13.5-17.5) g/dL Hct 39.1 L (41-53) % MCV 95.1 (80-100) fL MCH 32.6 (26-34) PG MCHC 34.3 (30-36) % RDW 15.2 H (11.6-14.8) % Plt Count 249 (150-400) X10^3/uL Neut % (Auto) 55.2 (50-75) % Lymph % (Auto) 27.4 (25-40) % [place] % (Auto) 9.0 (3-14) % Eos % (Auto) 7.6 H (2-4) % Baso % (Auto) 0.8 (0-2) % Neut # (Auto) 3000 (8128-9376) /uL Lymph # (Auto) 1500 (4491-8374) /uL [place] # (Auto) 500 (0-900) /uL Eos # (Auto) 400 (0-450) /uL Baso # (Auto) 0 (0-100) /uL PT 11.7 (10.1-12.7) SECONDS INR 1.0 (0.9-1.3) APTT 32 (26-36) SECONDS Sodium 137 (137-145) mmol/L Potassium 4.5 (3.4-5.1) mmol/L Chloride 103 (98-107) mmol/L Carbon Dioxide 25 (22-32) mmol/L BUN 18 (9-20) mg/dL Creatinine 0.98 (0.66-1.25) mg/dL Estimated GFR > 60 (>60) mL/min BUN/Creatinine Ratio 18.4 (6-22) Glucose 107 (80-110) mg/dL Calcium 9.1 (8.4-10.2) mg/dL Total Bilirubin 0.6 (0.2-1.3) mg/dL AST 33 (17-59) IU/L ALT 30 (<50) IU/L Alkaline Phosphatase 52 (38-126) U/L Total Protein 7.4 (6.3-8.2) g/dL Albumin 4.3 (3.5-5.0) g/dL Globulin 3.1 (1.7-4.1) g/dL Albumin/Globulin Ratio 1.4 (1.0-2.8) Blood Type Antibody Screen 01/14/23 01/14/23 Range/Units 12:40 15:16 WBC (4.5-11.0) X10^3/uL RBC (4.5-5.9) X10^6/uL Hgb 13.4 L (13.5-17.5) g/dL Hct 39.1 L (41-53) % MCV (80-100) fL MCH (26-34) PG MCHC (30-36) % RDW (11.6-14.8) % Plt Count (150-400) X10^3/uL Neut % (Auto) (50-75) % Lymph % (Auto) (25-40) % [place] % (Auto) (3-14) % Eos % (Auto) (2-4) % Baso % (Auto) (0-2) % Neut # (Auto) (3668-8389) /uL Lymph # (Auto) (4732-2490) /uL [place] # (Auto) (0-900) /uL Eos # (Auto) (0-450) /uL Baso # (Auto) (0-100) /uL PT (10.1-12.7) SECONDS INR (0.9-1.3) APTT (26-36) SECONDS Sodium (137-145) mmol/L Potassium (3.4-5.1) mmol/L Chloride (98-107) mmol/L Carbon Dioxide (22-32) mmol/L BUN (9-20) mg/dL Creatinine (0.66-1.25) mg/dL Estimated GFR (>60) mL/min BUN/Creatinine Ratio (6-22) Glucose (80-110) mg/dL Calcium (8.4-10.2) mg/dL Total Bilirubin (0.2-1.3) mg/dL AST (17-59) IU/L ALT (<50) IU/L Alkaline Phosphatase (38-126) U/L Total Protein (6.3-8.2) g/dL Albumin (3.5-5.0) g/dL Globulin (1.7-4.1) g/dL Albumin/Globulin Ratio (1.0-2.8) Blood Type A Positive Antibody Screen Negative Point of Care Testing Stool Occult Blood Positive MDM Narrative Medical decision making narrative: MDM * differential diagnosis includes but not limited to upper GI bleed, lower GI bleed, external hemorrhoids, diverticulosis, diverticulitis, ulcerative colitis, Crohn's disease * Prior records reviewed: Patient was last seen 5 months ago due to fatigue. History of coronary artery disease with stenting and pacemaker, hypertension, hyperlipidemia, BPH status post TURP, pulmonary embolism. On Plavix. Patient was worked up for causes of fatigue but an orthopedic found. Negative for UTI, COVID, CT head unremarkable, negative chest x-ray. Eventually discharged home. * My lab interpretation: On initial CDC patient will very mildly anemic although this appears baseline for him. BUN and creatinine within normal limits. * My imgaing interpretation: None * Clinical Decision Rules/Scores evaluated: None * Independent discussions with: None ED Course: This is a 82-year-old male presents to the emergency department due to reported GI bleeding. Patient does not present with any external hemorrhoids and during rectal exam the fecal matter appear somewhat purple in nature she was also positive on guaiac. Patient lab work does show very mild anemia which is chronic for him. He denies any dizziness, lightheadedness, or any other systemic symptoms and denies any abdominal pain. Denies chronic NSAID use. Last colonoscopy was last year which was reportedly normal. Discussed case with general surgeon, Dr. Izquierdo, who stated that she would be able to see him for a colonoscopy if admitted by the hospitalist team. Discussed the patient with Dr. Jauregui, hospitalist, who reviewed the patient and recommended I asked the patient if he would prefer to be hospitalized for possible colonoscopy tomorrow or be discharged with instructions to stop taking the Plavix and to monitor his symptoms. Discussed the options with the patient who would much rather disch arge with stop taking the Lasix as he is planning to go to [place] in 3 days for a vacation. Strongly recommended he follow up with his primary care provider when he returns for further evaluation and possible colonoscopy. Lab work does not show any kind of concerning anemia and on repeat CBC there was no change 3 hours later. Shared Decision Making: Discussed plan with patient as above Social Considerations: See above Disposition: Discharged to home <Candie Betancourt, - Last Filed: 01/15/23 07:09> Lab Data Labs: Lab Results 01/14/23 01/14/23 01/14/23 Range/Units 12:40 12:40 12:40 WBC 5.5 (4.5-11.0) X10^3/uL RBC 4.11 L (4.5-5.9) X10^6/uL Hgb 13.4 L (13.5-17.5) g/dL Hct 39.1 L (41-53) % MCV 95.1 (80-100) fL MCH 32.6 (26-34) PG MCHC 34.3 (30-36) % RDW 15.2 H (11.6-14.8) % Plt Count 249 (150-400) X10^3/uL Neut % (Auto) 55.2 (50-75) % Lymph % (Auto) 27.4 (25-40) % [place] % (Auto) 9.0 (3-14) % Eos % (Auto) 7.6 H (2-4) % Baso % (Auto) 0.8 (0-2) % Neut # (Auto) 3000 (8075-3428) /uL Lymph # (Auto) 1500 (0919-6215) /uL [place] # (Auto) 500 (0-900) /uL Eos # (Auto) 400 (0-450) /uL Baso # (Auto) 0 (0-100) /uL PT 11.7 (10.1-12.7) SECONDS INR 1.0 (0.9-1.3) APTT 32 (26-36) SECONDS Sodium 137 (137-145) mmol/L Potassium 4.5 (3.4-5.1) mmol/L Chloride 103 (98-107) mmol/L Carbon Dioxide 25 (22-32) mmol/L BUN 18 (9-20) mg/dL Creatinine 0.98 (0.66-1.25) mg/dL Estimated GFR > 60 (>60) mL/min BUN/Creatinine Ratio 18.4 (6-22) Glucose 107 (80-110) mg/dL Calcium 9.1 (8.4-10.2) mg/dL Total Bilirubin 0.6 (0.2-1.3) mg/dL AST 33 (17-59) IU/L ALT 30 (<50) IU/L Alkaline Phosphatase 52 (38-126) U/L Total Protein 7.4 (6.3-8.2) g/dL Albumin 4.3 (3.5-5.0) g/dL Globulin 3.1 (1.7-4.1) g/dL Albumin/Globulin Ratio 1.4 (1.0-2.8) Blood Type Antibody Screen 01/14/23 01/14/23 Range/Units 12:40 15:16 WBC (4.5-11.0) X10^3/uL RBC (4.5-5.9) X10^6/uL Hgb 13.4 L (13.5-17.5) g/dL Hct 39.1 L (41-53) % MCV (80-100) fL MCH (26-34) PG MCHC (30-36) % RDW (11.6-14.8) % Plt Count (150-400) X10^3/uL Neut % (Auto) (50-75) % Lymph % (Auto) (25-40) % [place] % (Auto) (3-14) % Eos % (Auto) (2-4) % Baso % (Auto) (0-2) % Neut # (Auto) (1710-9585) /uL Lymph # (Auto) (0573-6067) /uL [place] # (Auto) (0-900) /uL Eos # (Auto) (0-450) /uL Baso # (Auto) (0-100) /uL PT (10.1-12.7) SECONDS INR (0.9-1.3) APTT (26-36) SECONDS Sodium (137-145) mmol/L Potassium (3.4-5.1) mmol/L Chloride (98-107) mmol/L Carbon Dioxide (22-32) mmol/L BUN (9-20) mg/dL Creatinine (0.66-1.25) mg/dL Estimated GFR (>60) mL/min BUN/Creatinine Ratio (6-22) Glucose (80-110) mg/dL Calcium (8.4-10.2) mg/dL Total Bilirubin (0.2-1.3) mg/dL AST (17-59) IU/L ALT (<50) IU/L Alkaline Phosphatase (38-126) U/L Total Protein (6.3-8.2) g/dL Albumin (3.5-5.0) g/dL Globulin (1.7-4.1) g/dL Albumin/Globulin Ratio (1.0-2.8) Blood Type A Positive Antibody Screen Negative Point of Care Testing Stool Occult Blood Positive ECG Data Interpretation: Serafin-Paced rhythm rate [address] changes similar to previous EKG in 2021 Discharge Plan Departure Patient Disposition: Home Clinical Impression: Rectal bleed Instructions: Gastrointestinal Bleeding Activity Restrictions/Additional Instructions: Thank you for coming to the [facility] Emergency Department today. As discussed I recommend you stop taking the Plavix as recommended by our hospita list as this maybe thinning your blood which may be leading to the rectal bleeding. I recommend he follow up with the primary care provider when you return to discuss re-initiation of the Plavix as well as a possible colonoscopy to further examine the rectal bleeding your describing. Please go directly to the emergency department if you develop any lightheadedness, abdominal pain, worsening rectal bleeding, or any other concerning signs or symptoms. I hope you have a good trip Prescriptions: No Action aspirin 81 MG tablet,chewable 81 mg PO QDAY Qty: 0 LOPERAMIDE - (#IMODIUM) 2 mg PO PRN PRN (Reason: Diarrhea) Qty: 0 [FISH OIL ] tablet 14,000 mg PO QDAY Qty: 0 finasteride 5 mg tablet See Rx Instructions .ROUTE .COMPLEX Qty: 90 2RF Dose Instruction: TAKE 1 TABLET BY MOUTH DAILY Rx Instructions: TAKE 1 TABLET BY MOUTH DAILY prednisone 20 mg tablet 40 mg PO DAILY Qty: 10 0RF atorvastatin 10 mg tablet 10 mg PO DAILY enalapril maleate 10 mg tablet 10 mg PO BEDTIME methotrexate sodium 2.5 mg tablet 2.5 mg PO QWEEK Rx Instructions: pt normally takes it on Mondays at 2100 iron [id number] 150 mg iron- 60 mg-1 mg tablet 1 tab PO DAILY Referrals: Monika Márquez PA-C [Primary Care Provider] - Stand Alone Forms: Patient Portal/API <Candie Betancourt DO - Last Filed: 01/15/23 07:09> Cosign ED Attending Reagan Attestation: I was immediately available in the department for consultation. Documentation has been reviewed.
[2023-01-14 15:22] LABS: Hematocrit 39.1 % (41-53); Hemoglobin 13.4 g/dL (13.5-17.5)
[2023-01-14] MEDS: PANTOPRAZOLE 40 MG VIAL 80 MG IV (15:59)
== END 2023-01-14 18:20 | disposition home or self-care (01) ==
PROVIDERS: Emergency Medicine; Emergency Provider Physician Assistant Medical; Family Provider Physician Assistant; PCP Physician Assistant
DX: K62.5 Hemorrhage of anus and rectum (principal)
CPT/HCPCS: 36415; 80053; 82272; 85014; 85018; 85025; 85610; 85730; 86850; 86900; 86901; 93005; 96374; 99284; C9113

== ENCOUNTER 2023-09-12 09:16 | Emergency (ER) | payer MEDICARE, SELFPAY ==
[2021-07-06 16:09] VITALS: BMI 31.1
[2023-09-12 09:26] VITALS: BP 183/89; PULSE 82; RESP 16; TEMP 36.5; O2SAT 100; BMI 30.9
--- NOTE | 2023-09-12 09:34 | ED.MALEGU ---
HPI - Male Genitourinary General Chief complaint: Urogenital-Male Stated complaint: POSSIBLE UTI Time Seen by Provider: 09/12/23 09:18 Source: patient Mode of arrival: Ambulatory History of Present Illness HPI Narrative: 83-year-old male with history of urinary retention presents for probable UTI. Patient has self catheterized for 8 years and he states that his last urinary tract infection was 6 years ago. Several weeks ago he went to [facility] on vacation and states that he was not as vigilant about his hygiene as he normally is. Over the weekend he began to notice foul-smelling urine that was somewhat cloudy. He was concerned that he was developing urinary tract infection and went to his urologist office, however there was no one available and he was referred to the ER for evaluation. Patient denies abdominal pain, fevers, chills, flank pain, other complaints at this time. He states that other than his urine he feels in his usual state of good health. Related Data Home Medications Medication Instructions Recorded Confirmed LOPERAMIDE - 2 mg PO PRN PRN Diarrhea ##0 02/07/11 12/16/22 (#IMODIUM) aspirin 81 mg chewable tablet 81 mg PO QDAY ##0 02/07/11 12/16/22 [FISH OIL ] 14,000 mg PO QDAY ##0 06/27/13 12/16/22 atorvastatin 10 mg tablet 10 mg PO DAILY 02/10/21 12/16/22 enalapril maleate 10 mg tablet 10 mg PO BEDTIME 02/10/21 12/16/22 iron 150 mg-vit C 60 mg-folate 1 1 tab PO DAILY 02/10/21 12/16/22 [id number] tablet methotrexate sodium 2.5 mg tablet 2.5 mg PO QWEEK 02/10/21 12/16/22 Previous Rx's Medication Instructions Recorded prednisone 20 mg tablet 40 mg (2 x 20 mg) PO DAILY #10 tabs 07/11/21 finasteride 5 mg tablet See Rx Instructions .Route 02/03/23 .COMPLEX #90 tabs ciprofloxacin HCl 500 mg tablet 500 mg PO BID #14 tabs 09/12/23 Allergies Allergy/AdvReac Type Severity Reaction Status Date / Time shellfish derived Allergy Severe Rash Verified 01/14/23 12:31 erythromycin base Allergy Mild SKIN LESION Verified 01/14/23 12:31 oxycodone Allergy Mild NIGHT Verified 01/14/23 12:31 SWEATS Sulfa (Sulfonamide Allergy Mild SKIN LESION Verified 01/14/23 12:31 Antibiotics) OYSTER EXTRACT Allergy Mild GI UPSET Uncoded 12/16/22 15:28 Review of Systems Review of Systems Narrative: Negative except as noted above Patient History Medical History (Updated 09/12/23 @ 09:42 by Elidia Rivas MD) Urinary retention CAD (coronary artery disease) History of UTI Flaccid bladder UTI (urinary tract infection) Rotator cuff arthropathy Umbilical hernia with obstruction Surgical History History of coronary artery stent placement Hx of vasectomy History of knee replacement Family History Father Cancer Mother Congestive heart failure Social History marital status: number of children: 2 household members: spouse lives independently: Yes Smoking Status: Never smoker alcohol intake: former caffeine: Yes Smoking Status: Never smoker alcohol intake frequency: holidays/special occasions only Substance Use Type: does not use Exam Initial Vital Signs Initial Vital Signs: Vital Signs Temperature 97.7 F 09/12/23 09:26 Pulse Rate 82 09/12/23 09:26 Respiratory Rate 16 09/12/23 09:26 Blood Pressure 183/89 H 09/12/23 09:26 Pulse Oximetry 100 09/12/23 09:26 Oxygen Delivery Method Room Air 09/12/23 09:26 Const: Awake, alert, no acute distress, nontoxic appearing, appears younger than stated age Eyes: PERRL, EOMI, conjunctiva normal ENT: Atraumatic, dentition normal, mucous membranes moist Cardiac: regular rate, regular rhythm RESP: unlabored, clear bilaterally, no wheezing GI: Atraumatic, soft, nontender, nondistended, no rebound, no guarding MSK: Atraumatic, full range of motion, pulses equal Skin: Warm, Dry, intact, no rashes Neuro: AO x3, CN II-XII grossly intact, moves all extremities Psych: affect normal, mood normal, not suicidal, not homicidal Course Orders Ordered: ED Orders 09/12/23 09:33 UA Complete [Urinalysis and Microscopic] Stat Urine Culture Stat Vital Signs Vital signs: Vital Signs - 8 hr 09/12/23 09:26 Temperature 97.7 F Pulse Rate 82 Respiratory Rate 16 Blood Pressure 183/89 H Pulse Oximetry 100 Oxygen Delivery Method Room Air MDM - Male Genitourinary Differential Diagnosis Differential diagnosis: Likely urinary tract infection, epididymitis and acute retention of urine Lab Data Labs: Lab Results 09/12/23 Range/Units 09:33 Urine Color Yellow Urine Appearance Cloudy Urine pH 6.0 (4.5-8.0) Ur Specific [place] 1.010 (1.000-1.035) Urine Protein Trace H (Negative) Urine Glucose (UA) Negative (Negative) g/dL Urine Ketones Negative (NEGATIVE) Urine Occult Blood 2+ H (Negative) Urine Nitrate Positive H (Negative) Urine Bilirubin Negative (NEGATIVE) Urine Urobilinogen 0.2 (0.2) E.U./dL Ur Leukocyte Esterase 3+ H (NEGATIVE) Urine RBC 1-5/hpf (0-5/HPF) Urine WBC 30-100/hpf H (0-5/HPF) Ur Squamous Epith Cells 0-1 /hpf (0-5/HPF) Urine Bacteria Many (>30) H (None) Ur Culture Indicated? Specimen cultured MDM Narrative Medical decision making narrative: Well-appearing patient with cloudy and foul-smelling urine. Denying any other complaints, physical exam is unremarkable, no suprapubic pain, no CVA tenderness, vitals are normal. Urinalysis positive for nitrites and leukocyte esterase. We will treat with ciprofloxacin since he is a frequent self catheterize her. He will call his urologist for follow up. Strict ED return precautions discussed with patient prior to departure. Patient expressed understanding of the plan and is in agreement at this time. All questions answered at the time of discharge. Discharge Plan Departure Patient Disposition: Home Clinical Impression: Urinary tract infection Qualifiers: Urinary tract infection type: acute cystitis Hematuria presence: with hematuria Qualified Code(s): N30.01 - Acute cystitis with hematuria Instructions: DI for Urinary Tract Infection (UTI) Prescriptions: New ciprofloxacin HCl 500 mg tablet 500 mg PO BID Qty: 14 0RF No Action aspirin 81 MG tablet,chewable 81 mg PO QDAY Qty: 0 LOPERAMIDE - (#IMODIUM) 2 mg PO PRN PRN (Reason: Diarrhea) Qty: 0 [FISH OIL ] tablet 14,000 mg PO QDAY Qty: 0 finasteride 5 mg tablet See Rx Instructions .ROUTE .COMPLEX Qty: 90 2RF Dose Instruction: TAKE 1 TABLET BY MOUTH DAILY Rx Instructions: TAKE 1 TABLET BY MOUTH DAILY prednisone 20 mg tablet 40 mg PO DAILY Qty: 10 0RF atorvastatin 10 mg tablet 10 mg PO DAILY enalapril maleate 10 mg tablet 10 mg PO BEDTIME methotrexate sodium 2.5 mg tablet 2.5 mg PO QWEEK Rx Instructions: pt normally takes it on Mondays at 2100 iron [id number] 150 mg iron- 60 mg-1 mg tablet 1 tab PO DAILY Referrals: Monika Márquez PA-C [Primary Care Provider] - Elder Camara MD [Physician] - Stand Alone Forms: Patient Portal/API
[2023-09-12 09:35] LABS: Appearance Urine UA CLOUDY; Bilirubin Urine UA NEGATIVE (NEGATIVE); Color Urine UA YELLOW; Glucose Urine UA NEGATIVE (Negative); Ketones Urine UA NEGATIVE (NEGATIVE); Leukocyte Esterase Urine UA 3+ (NEGATIVE); Nitrite Urine UA POSITIVE (Negative); Occult Blood Urine UA 2+ (Negative); Protein Urine UA TRACE (Negative); Urobilinogen Urine UA 0.2 E.U./dL (0.2)
[2023-09-12 09:42] LABS: Bacteria Urine Many (>30); Culture Indicated Urine Specimen Cultured; RBC Urine 1-5/HPF (0-5/HPF); Squamous Epithelial Cell Urine 0-1 /HPF (0-5/HPF); WBC Urine 30-100/HPF (0-5/HPF)
== END 2023-09-12 09:53 | disposition home or self-care (01) ==
PROVIDERS: Emergency Provider Emergency Medicine; Family Provider Physician Assistant; PCP Physician Assistant
DX: N30.01 Acute cystitis with hematuria (principal)
CPT/HCPCS: 81001; 87077; 87086; 87186; 99283

== ENCOUNTER → 2024-05-31 14:42 | Outpatient (CLI) | payer MEDICARE, SELFPAY ==
[2021-07-06 16:09] VITALS: BMI 31.1
== END ==
PROVIDERS: Family Provider Physician Assistant; PCP Physician Assistant; Referring Provider Urology; Visit Provider Urology
DX: Z87.440 Personal history of urinary (tract) infections (principal)
CPT/HCPCS: 87086

== ENCOUNTER → 2024-07-17 15:44 | Outpatient (CLI) | payer MEDICARE, SELFPAY ==
[2021-07-06 16:09] VITALS: BMI 31.1
--- NOTE | 2024-07-17 15:46 | DI.RAD.S_ITS ---
PROCEDURE: XR RIBS LT MIN 3V W CXR1V INDICATIONS: Pleurodynia TECHNIQUE: Three views of the ribs were acquired, along with a single view chest. COMPARISON: None. FINDINGS: Heart, mediastinum and pulmonary vasculature: The heart is mil borderline enlarged. AICD device in satisfactory position. Mediastinum is unremarkable. Pulmonary vascular is normal. Lungs: Clear Pleural spaces: Normal-no effusions or pneumothorax. Bones and soft tissues: Ribs are unremarkable. No soft tissue abnormality IMPRESSION: Borderline cardiomegaly otherwise negative Dictated by: Nick Isabel M.D. on 07/18/2024 at 10:56 Approved by: Nick Isabel M.D. on 07/18/2024 at 10:57
== END ==
PROVIDERS: Family Provider Physician Assistant; PCP Physician Assistant; Referring Provider Nurse Practitioner Family; Visit Provider Nurse Practitioner Family
DX: R07.81 Pleurodynia (principal)
CPT/HCPCS: 71101

== ENCOUNTER → 2024-11-28 11:16 | Outpatient (CLI) | payer MEDICARE, SELFPAY ==
[2021-07-06 16:09] VITALS: BMI 31.1
--- NOTE | 2024-11-28 11:17 | DI.RAD.S_ITS ---
PROCEDURE: XR ELBOW LT MIN 3V INDICATIONS: Left elbow injury TECHNIQUE: 3 views of the elbow were acquired. COMPARISON: None. FINDINGS: Bones: No fractures or dislocations. No suspicious bony lesions. Soft tissues: No elbow joint effusion. No suspicious soft tissue calcifications. IMPRESSION: No acute bony abnormality or significant joint effusion. Approved by: Aguila Carranza M.D. on 11/28/2024 at 11:00
== END ==
PROVIDERS: Family Provider Physician Assistant; PCP Nurse Practitioner Family; Referring Provider Registered Nurse; Visit Provider Registered Nurse
DX: M25.522 Pain in left elbow (principal)
CPT/HCPCS: 73080

== ENCOUNTER 2024-11-30 09:51 | Emergency (ER) | payer MEDICARE, SELFPAY ==
[2021-07-06 16:09] VITALS: BMI 31.1
[2024-11-30] VITALS (7 sets, daily range): BP systolic 127–160; BP diastolic 77–80; PULSE 60–76; RESP 16–18; TEMP 36.6–36.8; O2SAT 97–99; BMI 31.7
--- NOTE | 2024-11-30 11:47 | ED_ITS ---
HPI - Skin/Abscess/Foreign Bdy General Chief complaint: Skin/Abscess/Foreign Body Stated complaint: swollen L elbow/arm, sent by [facility] Time Seen by Provider: 11/30/24 11:27 History of Present Illness HPI narrative: Patient is an 84-year-old male history of hypertension hyperlipidemia presenting today with increasing left elbow redness and pain. He initially was seen on 11/28/2024. At that time he reports that he fell onto his work bench 1 week ago he was had pain swelling and fluid in his left elbow since then. He had an x- ray at that time which was negative. Since then he reports increasing redness pain and swelling. No actual fever sometimes some body aches. He is still able to move it but does definitely find some increased erythema Related Data Home Medications Medication Instructions Recorded Confirmed LOPERAMIDE - 2 mg PO PRN PRN Diarrhea ##0 02/07/11 11/30/24 (#IMODIUM) aspirin 81 mg chewable tablet 81 mg PO QDAY ##0 02/07/11 11/30/24 [FISH OIL ] 14,000 mg PO QDAY ##0 06/27/13 11/30/24 atorvastatin 10 mg tablet 10 mg PO DAILY 02/10/21 11/30/24 enalapril maleate 10 mg tablet 10 mg PO BEDTIME 02/10/21 11/30/24 iron 150 mg-vit C 60 mg-folate 1 1 tab PO DAILY 02/10/21 11/30/24 [id number] tablet methotrexate sodium 2.5 mg tablet 2.5 mg PO QWEEK 02/10/21 11/30/24 Previous Rx's Medication Instructions Recorded finasteride 5 mg tablet 5 mg PO DAILY #90 tabs 08/03/24 amoxicillin 875 mg-potassium 1 tab PO BID #20 tabs 11/30/24 clavulanate 125 mg tablet Allergies Allergy/AdvReac Type Severity Reaction Status Date / Time shellfish derived Allergy Severe Rash Verified 11/30/24 09:32 erythromycin base Allergy Mild SKIN LESION Verified 11/30/24 09:32 oxycodone Allergy Mild NIGHT Verified 11/30/24 09:32 SWEATS Sulfa (Sulfonamide Allergy Mild SKIN LESION Verified 11/30/24 09:32 Antibiotics) OYSTER EXTRACT Allergy Mild GI UPSET Uncoded 11/30/24 09:32 Patient History Medical History Urinary retention CAD (coronary artery disease) History of UTI Flaccid bladder UTI (urinary tract infection) Rotator cuff arthropathy Umbilical hernia with obstruction Surgical History History of coronary artery stent placement Hx of vasectomy History of knee replacement Family History Father Cancer Mother Congestive heart failure Social History marital status: number of children: 2 household members: spouse lives independently: Yes Smoking Status: Never smoker alcohol intake: former caffeine: Yes Smoking Status: Never smoker alcohol intake frequency: holidays/special occasions only Exam Initial Vital Signs Initial Vital Signs: Vital Signs Temperature 97.8 F 11/30/24 09:59 Pulse Rate 67 11/30/24 09:59 Respiratory Rate 16 11/30/24 09:59 Blood Pressure 160/77 H 11/30/24 09:59 Pulse Oximetry 99 11/30/24 09:59 Oxygen Delivery Method Room Air 11/30/24 09:59 GENERAL: Alert pleasant well-appearing 84-year-old HEENT: Head atraumatic,EOMI, pupils reactive, face symmetric, [moist] mucous membranes CARDIOVASCULAR: Regular rate and rhythm without murmurs, rubs or gallops. RESPIRATORY: Breath sounds equal bilaterally, no wheezes rales or rhonchi. ABDOMEN: Soft, nontender. Normoactive bowel sounds all 4 quadrants. No guarding or rebound. EXTREMITIES: Normal range of motion, no clubbing or edema. Neurovascularly intact NEUROLOGICAL: Alert and oriented x4.Normal gait and speech. SKIN: Warm, dry, no laceration, no petechiae, no rashes or lesions. Left upper extremity definite fluid collection over olecranon dry scaly skin he has significant swelling around his arm and circumferentially with erythema he was able to flex and extend his elbow is distal radial pulse intact Procedures Abscess I/D I&D #1: Site: upper extremity Side (if applicable): left Local Anesthetic: lidocaine 1% Amount of anesthesia used (mL): 3 Technique: needle aspiration Amount of fluid expressed (mL): 12 Course Orders Ordered: ED Orders 11/30/24 12:00 ESR [Erythrocyte Sedimentation Rate] Stat 11/30/24 12:09 CBC Auto Diff [Complete Blood Count AUTO DIFF] Stat CMP [Comprehensive Metabolic Panel] Stat Lactate (Lactic Acid) Stat 11/30/24 12:45 Blood Culture Stat CRP [C-Reactive Protein Quant] Stat 11/30/24 15:31 Wound Culture and Gram Stain Stat 11/30/24 15:40 Body Fluid Culture Stat Discontinued Medications Ceftriaxone Sodium 1,000 mg/ (Sodium Chloride) 100 mls @ 200 mls/hr IV NOW ONE Stop: 11/30/24 12:02 Last Infusion: 11/30/24 13:51 Dose: Infused Documented By: Admin: 11/30/24 13:16 Dose: 200 mls/hr Documented By: SEAN Vital Signs Vital signs: Vital Signs - 8 hr 11/30/24 11:51 11/30/24 12:00 11/30/24 12:30 Temperature Pulse Rate 61 63 60 Respiratory Rate Blood Pressure Pulse Oximetry 97 97 97 Oxygen Delivery Method Room Air 11/30/24 13:00 11/30/24 13:30 11/30/24 15:42 Temperature 98.2 F Pulse Rate 69 61 76 Respiratory Rate 18 Blood Pressure 127/80 Pulse Oximetry 98 98 97 Oxygen Delivery Method Room Air Room Air MDM - Skin/Abscess/Foreign Bdy Lab Data 11/30/24 12:09 11/30/24 12:09 Labs: Lab Results 11/30/24 11/30/24 11/30/24 Range/Units 12:00 12:09 12:45 WBC 9.3 (4.5-11.0) X10^3/uL RBC 3.85 L (4.5-5.9) X10^6/uL Hgb 13.1 L (13.5-17.5) g/dL Hct 38.6 L (41-53) % MCV 100.5 H (80-100) fL MCH 34.2 H (26-34) PG MCHC 34.0 (30-36) % RDW 14.8 (11.6-14.8) % Plt Count 233 (150-400) X10^3/uL Neut % (Auto) 70.4 (50-75) % Lymph % (Auto) 13.9 L (25-40) % [place] % (Auto) 10.2 (3-14) % Eos % (Auto) 5.2 H (2-4) % Baso % (Auto) 0.3 (0-2) % Neut # (Auto) 6600 (3980-0360) /uL Lymph # (Auto) 1300 (1072-4030) /uL [place] # (Auto) 1000 H (0-900) /uL Eos # (Auto) 500 H (0-450) /uL Baso # (Auto) 0 (0-100) /uL ESR 54 H (0-15) MM/HR Sodium 138 (137-145) mmol/L Potassium 4.5 (3.4-5.1) mmol/L Chloride 105 (98-107) mmol/L Carbon Dioxide 27 (22-32) mmol/L BUN 15 (9-20) mg/dL Creatinine 1.01 (0.66-1.25) mg/dL Estimated GFR > 60 (>60) mL/min BUN/Creatinine Ratio 14.9 (6-22) Glucose 109 (80-110) mg/dL Lactate 0.9 (0.7-2.1) mmol/L Calcium 9.5 (8.4-10.2) mg/dL Total Bilirubin 0.7 (0.2-1.3) mg/dL AST 27 (17-59) IU/L ALT 23 (<50) IU/L Alkaline Phosphatase 62 (38-126) U/L C-Reactive Protein 8.4 H (<1.0) mg/dL Total Protein 7.8 (6.3-8.2) g/dL Albumin 4.2 (3.5-5.0) g/dL Globulin 3.6 (1.7-4.1) g/dL Albumin/Globulin Ratio 1.2 (1.0-2.8) MDM Narrative Medical decision making narrative: [facility] CC: Left elbow pain redness Complicating co-morbidities: Hypertension hyperlipidemia Medical records reviewed: Previous walk-in clinic visits reviewed Differential considered: Bursitis cellulitis septic joint Exam documented above, pertinent findings include: Fluid collection over the olecranon some erythema that is circumferential distal radial pulse intact full flexion and extension minimal pain Lab Test results independently reviewed as above. Pertinent findings: CBC WBC is 9.3 hemoglobin 13.1 hematocrit 38.6 which is stable CMP no electrolyte abnormality ESR 54, CRP 8.4, lactate 0.9 Blood cultures pending Fluid pending Treatments: I&D of left olecranon bursitis, 12 mL bloody cloudy drainage Rocephin 1 g Re-evaluations: [ ] Discussion: Patient 84-year-old male who presents with 1 week of increasing olecranon and left arm pain. He does have cellulitis and erythema he definitely has palpable bursitis and fluid collection. Fluid was drained. I do not believe he has a septic joint he is able flex and extend his elbow. We talked about elevating and antibiotics. He does have elevation of ESR CRP but no significant leukocytosis or elevated lactate no evidence of severe sepsis. At this time patient would like to go home with oral antibiotics which I think is reasonable. Bursitis was drained no leukocytosis normal lactate Discharge Plan Departure Patient Disposition: Home Clinical Impression: Cellulitis, Bursitis Instructions: DI for Cellulitis -- Adult, DI for Elbow Bursitis Activity Restrictions/Additional Instructions: *You have been diagnosed with cellulitis and bursitis *What to do: At this time there is sign of infection with the redness on your arm. Please elevate and ice as often as possible. The fluid in your elbow will likely recollect. *Continue to take medications as directed Augmentin 875 twice a day for 10 days-->rite aid Motrin 600 mg every 6 hours for [id number] pain Tylenol 650 mg every 4-6 hours for ptdw-[id number] pain *Follow up with your primary care provider in 2-3 days or call [phone] *Return to ER if you should have increasing pain redness extreme pain with moving your elbow or wrist or any new, worsening or concerning symptoms Prescriptions: New amoxicillin-pot clavulanate 875-125 mg tablet 1 tab PO BID Qty: 20 0RF No Action aspirin 81 MG tablet,chewable 81 mg PO QDAY Qty: 0 LOPERAMIDE - (#IMODIUM) 2 mg PO PRN PRN (Reason: Diarrhea) Qty: 0 [FISH OIL ] tablet 14,000 mg PO QDAY Qty: 0 finasteride 5 mg tablet 5 mg PO DAILY Qty: 90 3RF atorvastatin 10 mg tablet 10 mg PO DAILY enalapril maleate 10 mg tablet 10 mg PO BEDTIME methotrexate sodium 2.5 mg tablet 2.5 mg PO QWEEK Rx Instructions: pt normally takes it on Mondays at 2100 iron [id number] 150 mg iron- 60 mg-1 mg tablet 1 tab PO DAILY Referrals: Ofelia Nguyen ARNP [Primary Care Provider] - Stand Alone Forms: Patient Portal/API/Survey
[2024-11-30 12:15] LABS: Add Manual Diff / Slide Review NO; Basophils Absolute Auto 0 /uL (0-100); Basophils Percent Auto 0.3 % (0-2); Eosinophils Absolute Auto 500 /uL (0-450); Eosinophils Percent Auto 5.2 % (2-4); Hematocrit 38.6 % (41-53); Hemoglobin 13.1 g/dL (13.5-17.5); Lymphocytes Absolute Auto 1300 /uL (1100-4500); Lymphocytes Percent Auto 13.9 % (25-40); Mean Corpuscular Hemoglobin 34.2 PG (26-34); Mean Corpuscular Volume 100.5 fL (80-100); Monocytes Absolute Auto 1000 /uL (0-900); Monocytes Percent Auto 10.2 % (3-14); Neutrophils Absolute Auto 6600 /uL (1500-7000); Neutrophils Percent Auto 70.4 % (50-75); Platelet Count 233 X10^3/uL (150-400); Red Blood Cell Count 3.85 X10^6/uL (4.5-5.9); Red Cell Distribution Width 14.8 % (11.6-14.8); White Blood Cell Count 9.3 X10^3/uL (4.5-11.0)
[2024-11-30 12:30] LABS: Alanine Aminotransferase 23 IU/L (<50); Albumin 4.2 g/dL (3.5-5.0); Albumin Globulin Ratio 1.2 (1.0-2.8); Alkaline Phosphatase 62 U/L (38-126); Aspartate Aminotransferase 27 IU/L (17-59); BUN Creatinine Ratio 14.9 (6-22); Bilirubin Total 0.7 mg/dL (0.2-1.3); Blood Urea Nitrogen 15 mg/dL (9-20); Calcium 9.5 mg/dL (8.4-10.2); Carbon Dioxide 27 mmol/L (22-32); Chloride 105 mmol/L (98-107); Estimated Glomerular Filt Rate > 60 mL/min (>60); Globulin 3.6 g/dL (1.7-4.1); Glucose 109 mg/dL (80-110); HEMOLYSIS < 15 (0-50); Potassium 4.5 mmol/L (3.4-5.1); Sodium 138 mmol/L (137-145); Total Protein 7.8 g/dL (6.3-8.2)
[2024-11-30 12:31] LABS: Lactate (Lactic Acid) 0.9 mmol/L (0.7-2.1)
[2024-11-30] MEDS: cefTRIAXone 1,000 MG in SODIUM CHLORIDE 0.9% 100 ML 200 MG IV (13:16)
[2024-11-30 13:21] LABS: C-Reactive Protein Quant 8.4 mg/dL (<1.0)
[2024-11-30 13:49] LABS: Erythrocyte Sedimentation Rate 54 MM/HR (0-15)
== END 2024-11-30 15:43 | disposition home or self-care (01) ==
PROVIDERS: Emergency Provider Emergency Medicine; Family Provider Physician Assistant; PCP Nurse Practitioner Family
DX: L03.114 Cellulitis of left upper limb (principal); M70.32 Other bursitis of elbow, left elbow; I10 Essential (primary) hypertension; E78.5 Hyperlipidemia, unspecified; Z88.2 Allergy status to sulfonamides
CPT/HCPCS: 10060; 36415; 80053; 83605; 85025; 85651; 86140; 87040; 87070; 87075; 87077; 87147; 87186; 87205; 96365; 99284; J0696

== ENCOUNTER → 2025-04-23 11:29 | Outpatient (CLI) | payer MEDICARE, SELFPAY ==
[2021-07-06 16:09] VITALS: BMI 31.1
--- NOTE | 2025-04-23 11:32 | DI.RAD.S_ITS ---
PROCEDURE: XR FOOT LT MIN 3V INDICATIONS: PAIN IN LEFT FOOT TECHNIQUE: 3 views of the foot were acquired. COMPARISON: None. FINDINGS: Bones: Severe hallux valgus and hammertoe deformities 1st through 5th digits noted. Os trigonum seen. Joints: Moderate degeneration 1st MTP and all interphalangeal joints Soft tissues: No soft tissue abnormality. IMPRESSION: Chronic findings Dictated by: Nick Isabel M.D. on 04/24/2025 at 11:34 Approved by: Nick Isabel M.D. on 04/24/2025 at 11:35
== END ==
LOC: RAD 11:30
PROVIDERS: Family Provider Physician Assistant; PCP Nurse Practitioner Family; Referring Provider Family Medicine; Visit Provider Family Medicine
DX: M20.12 Hallux valgus (acquired), left foot (principal); M20.42 Other hammer toe(s) (acquired), left foot; M79.672 Pain in left foot
CPT/HCPCS: 73630